=== PATIENT | female | born 1950 | race Caucasian/White ===

== ENCOUNTER 2017-01-31 10:10 | Day surgery (SDC) | payer MEDICARE, BC ==
[~2017-01-31 10:10] MED LIST: BESIFLOXACIN HCL 0.6% OPH SUSP 5 ML BOTTLE OD PRN; CYCLOPENTOLATE 0.2%/PHENYLEPHRINE 1% OPH SOLN 2 ML OD PRN; KETOROLAC TROMETHAMINE 0.45% 4 DROP/0.4 ML DROPERETTE OD PRN; MIDAZOLAM 2 MG/2 ML INJ ONE; TETRACAINE HCL 0.5% OPH SOLN 0.6 ML DROPERETTE OD PRN; TROPICAMIDE 1% OPH SOLN 3 ML OD PRN
[2017-01-31] MEDS: TETRACAINE HCL 0.5% OPH SOLN 0.6 ML DROPERETTE OD PRN ×4 (11:02→12:15)
[2017-01-31] MEDS: TROPICAMIDE 1% OPH SOLN 3 ML OD PRN ×3 (11:02→11:25)
[2017-01-31] MEDS: BESIFLOXACIN HCL 0.6% OPH SUSP 5 ML BOTTLE OD PRN ×3 (11:02→12:15)
[2017-01-31] MEDS: CYCLOPENTOLATE 0.2%/PHENYLEPHRINE 1% OPH SOLN 2 ML OD PRN ×3 (11:02→11:25)
[2017-01-31] MEDS ORDERED: LIDOCAINE 0.5% INJ-PF (5 MG/ML) 50 ML SDV ONE (11:05)
[2017-01-31] MEDS ORDERED: EPINEPHRINE INJ/PF 1 MG/1 ML AMPULE ONE (11:11)
[2017-01-31] MEDS ORDERED: CHONDR SU A NA/HYALUR INTRAOC KIT (SURGICARE) ONE (11:11)
[2017-01-31] MEDS ORDERED: LIDOCAINE 1% INJ-PF (10 MG/ML) 30 ML SDV ONE (11:11)
[2017-01-31] MEDS: TOBRAMYCIN SULFATE/DEXAMETH OPH OINTMENT 3.5 GM ONE ×2 (11:51→12:15)
== END 2017-01-31 12:59 | disposition home or self-care (01) ==
LOC: SC 10:10
PROVIDERS: ATTEND Ophthalmology
PROC: 08RJ3JZ Replacement of Right Lens with Synthetic Substitute, Percutaneous Approach (ICD-10-PCS; principal; 2017-01-31 11:15)
DX: H25.11 Age-related nuclear cataract, right eye (principal); E11.9 Type 2 diabetes mellitus without complications; D64.9 Anemia, unspecified; I10 Essential (primary) hypertension; E03.9 Hypothyroidism, unspecified; E78.00 Pure hypercholesterolemia, unspecified; M19.90 Unspecified osteoarthritis, unspecified site; Z79.899 Other long term (current) drug therapy; Z79.84 Long term (current) use of oral hypoglycemic drugs; Z88.0 Allergy status to penicillin; Z88.5 Allergy status to narcotic agent; Z88.8 Allergy status to other drugs, medicaments and biological substances; Z85.850 Personal history of malignant neoplasm of thyroid; Z87.892 Personal history of anaphylaxis
CPT/HCPCS: 66984; 82962; V2632; J2250; J3490 ×4; A9270; J0171; 142

== ENCOUNTER 2017-02-14 08:32 | Day surgery (SDC) | payer MEDICARE, BC ==
[~2017-02-14 08:32] MED LIST changes: -BESIFLOXACIN HCL 0.6% OPH SUSP 5 ML BOTTLE OD PRN; +CHONDR SU A NA/HYALUR INTRAOC KIT (SURGICARE) ONE; -CYCLOPENTOLATE 0.2%/PHENYLEPHRINE 1% OPH SOLN 2 ML OD PRN; +EPINEPHRINE INJ/PF 1 MG/1 ML AMPULE ONE; -KETOROLAC TROMETHAMINE 0.45% 4 DROP/0.4 ML DROPERETTE OD PRN; +KETOROLAC TROMETHAMINE 0.45% 4 DROP/0.4 ML DROPERETTE OS PRN; +LIDOCAINE 1% INJ-PF (10 MG/ML) 30 ML SDV ONE; -MIDAZOLAM 2 MG/2 ML INJ ONE; -TETRACAINE HCL 0.5% OPH SOLN 0.6 ML DROPERETTE OD PRN; -TROPICAMIDE 1% OPH SOLN 3 ML OD PRN
[2017-02-14] MEDS ORDERED: MIDAZOLAM 2 MG/2 ML INJ ONE ×2 (08:51→09:23)
[2017-02-14] MEDS: TETRACAINE HCL 0.5% OPH SOLN 0.6 ML DROPERETTE OS PRN ×3 (08:55→09:16)
[2017-02-14] MEDS: TROPICAMIDE 1% OPH SOLN 3 ML OS PRN ×3 (08:55→09:13)
[2017-02-14] MEDS: CYCLOPENTOLATE 0.2%/PHENYLEPHRINE 1% OPH SOLN 2 ML OS PRN ×3 (08:56→09:13)
[2017-02-14] MEDS: BESIFLOXACIN HCL 0.6% OPH SUSP 5 ML BOTTLE OS PRN ×4 (08:57→09:53)
[2017-02-14] MEDS ORDERED: LIDOCAINE 0.5% INJ-PF (5 MG/ML) 50 ML SDV ONE (08:57)
[2017-02-14] MEDS ORDERED: LIDOCAINE 0.5% INJ-PF (5 MG/ML) 50 ML SDV SUBCUT PRN (09:30)
[2017-02-14] MEDS: TOBRAMYCIN SULFATE/DEXAMETH OPH OINTMENT 3.5 GM ONE ×2 (09:53)
[2017-02-14] MEDS ORDERED: LIDOCAINE 1%/EPINEPHRINE INJ 20 ML VIAL ONE (12:17)
[2017-02-14] MEDS ORDERED: POLYMYXIN B SULFATE INJ 500000 UNIT VIAL ONE (12:17)
[2017-02-14] MEDS ORDERED: BACITRACIN INJ 50,000 UNIT VIAL ONE (12:17)
[2017-02-14] MEDS ORDERED: NORMAL SALINE INJ/PF 0.9% 10 ML SDV ONE (12:18)
== END 2017-02-14 10:26 | disposition home or self-care (01) ==
LOC: SC 08:32
PROVIDERS: ATTEND Ophthalmology
PROC: 08RK3JZ Replacement of Left Lens with Synthetic Substitute, Percutaneous Approach (ICD-10-PCS; principal; 2017-02-14 09:45)
DX: H25.12 Age-related nuclear cataract, left eye (principal); M19.90 Unspecified osteoarthritis, unspecified site; E11.9 Type 2 diabetes mellitus without complications; I10 Essential (primary) hypertension; E03.9 Hypothyroidism, unspecified; G89.29 Other chronic pain; H91.90 Unspecified hearing loss, unspecified ear; Z96.653 Presence of artificial knee joint, bilateral; D64.9 Anemia, unspecified; Z98.41 Cataract extraction status, right eye; Z79.899 Other long term (current) drug therapy; Z88.0 Allergy status to penicillin; Z79.84 Long term (current) use of oral hypoglycemic drugs; Z88.2 Allergy status to sulfonamides
CPT/HCPCS: 66984; 82962; V2632; J2250; J3490 ×5; A9270; J0171; 142

== ENCOUNTER 2017-12-04 15:27 | Emergency (ER) | payer MEDICARE, BC ==
--- NOTE | 2017-12-04 16:25 | ER Document Report ---
ED Skin Rash/Insect Bite/Abscs - General Chief Complaint: Rash Stated Complaint: RASH, SKIN IRRITATION Time Seen by Provider: 12/04/17 16:11 Mode of Arrival: Ambulatory Information source: Patient TRAVEL OUTSIDE OF THE [place] IN LAST 30 DAYS: No - HPI Patient complains to provider of: Skin rash/lesion Onset: Yesterday Onset/Duration: Gradual Quality of pain: Burning Severity: Severe Skin Character: Erythema, Papules, Patchy Skin Temperature: Warm Quality of rash: Burning Identify cause: No Exacerbated by: Denies Relieved by: Denies Similar symptoms previously: Yes - W/ "SHINGLES" Recently seen / treated by doctor: No - Related Data Allergies/Adverse Reactions: Iodinated Contrast- Oral and IV Dye Allergy (Intermediate, Verified 12/04/17 15: 33) Pruritis morphine Allergy (Intermediate, Verified 12/04/17 15:33) Pruritis oxycodone Allergy (Intermediate, Verified 12/04/17 15:33) Pruritis Penicillins Allergy (Intermediate, Verified 12/04/17 15:33) Difficulty breathing fentanyl [From Duragesic] Allergy (Unknown, Verified 12/04/17 15:33) hydromorphone HCl [From Dilaudid] Allergy (Unknown, Verified 12/04/17 15:33) meloxicam [From Mobic] Allergy (Verified 12/04/17 15:33) Sulfa (Sulfonamide Antibiotics) Allergy (Verified 12/04/17 15:33) Past Medical History - General Information source: Patient - Social History Smoking Status: Unknown if Ever Smoked Cigarette use (# per day): No Frequency of alcohol use: None Drug Abuse: None Lives with: Family Family History: Reviewed & Not Pertinent Patient has suicidal ideation: No Patient has homicidal ideation: No - Past Medical History Cardiac Medical History: Reports: Hx Congestive Heart Failure, Hx Hypercholesterolemia, Hx Hypertension Denies: Hx Heart Attack Pulmonary Medical History: Reports: None Denies: Hx Asthma Neurological Medical History: Reports: Hx Migraine. Denies: Hx Cerebrovascular Accident, Hx Seizures Endocrine Medical History: Reports: Hx Diabetes Mellitus Type 2 Renal/ Medical History: Denies: Hx Peritoneal Dialysis GI Medical History: Denies: Hx Hepatitis, Hx Hiatal Hernia, Hx Ulcer Infectious Medical History: Denies: Hx Hepatitis Past Surgical History: Reports: Hx Hysterectomy, Hx Orthopedic Surgery - left knee replacement; left rotator cuff, Hx Thyroid Surgery. Denies: Hx Mastectomy , Hx Open Heart Surgery, Hx Pacemaker - Immunizations Hx Diphtheria, Pertussis, Tetanus Vaccination: Yes Hx Pneumococcal Vaccination: 03/19/99 Review of Systems - Review of Systems Constitutional: Malaise. denies: Chills, Fever EENT: No symptoms reported Cardiovascular: No symptoms reported Respiratory: No symptoms reported Gastrointestinal: No symptoms reported Genitourinary: No symptoms reported Female Genitourinary: Post menopausal Musculoskeletal: No symptoms reported Skin: See HPI Neurological/Psychological: No symptoms reported Physical Exam - Vital signs Vitals: Temp Pulse Resp BP Pulse Ox 98.4 F 75 18 185/85 H 98 12/04/17 18:11 12/04/17 18:11 12/04/17 18:11 12/04/17 18:11 12/04/17 18:11 Interpretation: Hypertensive. No: Tachycardic, Tachypneic, Febrile - General General appearance: Appears well, Alert In distress: Mild - DUE TO PAIN - HEENT Head: Normocephalic Eyes: Normal Conjunctiva: Normal Ears: Normal Nasal: Normal Mouth/Lips: Normal Mucous membranes: Normal - Respiratory Respiratory status: No respiratory distress - Cardiovascular Rhythm: Regular - Abdominal Inspection: Other - RASH (SEE SKIN" BELOW) Distension: No distension - Back Back: Other - RASH - Extremities General upper extremity: Normal inspection General lower extremity: Normal inspection - Neurological Neuro grossly intact: Yes Cognition: Normal Orientation: AAOx4 - Psychological Associated symptoms: Normal affect, Normal mood - Skin Skin Temperature: Warm Skin Moisture: Dry Skin Color: Normal Skin Turgor: Elastic Skin irregularity: Rash Location of irregularity: Abdomen, Back, Other - CONFINED TO DERMATOME T-11 RIGHT Character of irregularity: Maculopapular, Patchy, Erythematous. negative: Vesicular Irregularity with: Tenderness, Inflammation. negative: Weeping Course - Vital Signs Vital signs: Temp Pulse Resp BP Pulse Ox 98.4 F 75 18 185/85 H 98 12/04/17 18:11 12/04/17 18:11 12/04/17 18:11 12/04/17 18:11 12/04/17 18:11 Discharge - Discharge Clinical Impression: Shingles outbreak Qualifiers: Herpes zoster complications: without complications Qualified Code(s): B02.9 - Zoster without complications Condition: Stable Disposition: HOME, SELF-CARE Instructions: Acyclovir ([facility]), Corticosteroid Medication ([facility]), Oral Narcotic Medication ([facility]), Shingles ([facility]) Additional Instructions: TAKE ACYCLOVIR DIRECTED, BEGIN TODAY. TAKE PREDNISONE DIRECTED, BEGIN TOMORROW (SUNDAY). YOU MAY TAKE DILAUDID FOR PAIN IF NEEDED (INSTEAD OF YOUR USUAL HYDROCODONE). FOLLOW UP WITH DR. NEWMAN BEFORE THE END OF THE WEEK. RETURN TO E.R. IF YOU GET WORSE OR IF COMPLICATIONS ARISE, ANY TIME. Prescriptions: Acyclovir 800 mg PO 5XD #35 tablet Prednisone 20 mg PO TID #10 tablet
[2017-12-04] MEDS ORDERED: HYDROMORPHONE HCL 2 MG TABLET PO ONE (16:42)
[2017-12-04] MEDS ORDERED: DEXAMETHASONE SOD PHOS INJ 10 MG/1 ML VIAL IM ONE (16:42)
[2017-12-04 18:13] VITALS: BP 185/85
== END 2017-12-04 18:08 | disposition home or self-care (01) ==
LOC: ER 15:27
DX: B02.9 Zoster without complications (principal); R53.81 Other malaise; I10 Essential (primary) hypertension; E11.9 Type 2 diabetes mellitus without complications; Z91.041 Radiographic dye allergy status; Z88.5 Allergy status to narcotic agent; Z88.0 Allergy status to penicillin; Z88.8 Allergy status to other drugs, medicaments and biological substances; Z88.2 Allergy status to sulfonamides
CPT/HCPCS: 99282; 96372; A9270; J1100

== ENCOUNTER 2017-12-07 09:05 | Emergency (ER) | payer MEDICARE, BC ==
[2017-12-07 09:15] VITALS: BP 174/98
--- NOTE | 2017-12-07 09:28 | ER Document Report ---
HPI - HPI Patient complains to provider of: Re-check shingles Pain Level: 3 Context: 67-year-old female is on Valtrex and prednisone with pain medication for the shingles. She was told to come back today for recheck. She was seen on the and the pain persists but there is no fever or chills. Associated Symptoms: None Exacerbated by: Movement - Touching the area Relieved by: Denies Similar symptoms previously: Yes Recently seen / treated by doctor: Yes - CONSTITUTIONAL Constitutional: DENIES: Fever, Chills - REPRODUCTIVE Reproductive: DENIES: : Past Medical History - General Information source: Patient - Social History Smoking Status: Never Smoker Chew tobacco use (# tins/day): No Frequency of alcohol use: None Drug Abuse: None Lives with: Family Family History: Reviewed & Not Pertinent Patient has suicidal ideation: No Patient has homicidal ideation: No - Past Medical History Cardiac Medical History: Reports: Hx Congestive Heart Failure, Hx Hypercholesterolemia, Hx Hypertension Neurological Medical History: Reports: Hx Migraine Endocrine Medical History: Reports: Hx Diabetes Mellitus Type 2 Past Surgical History: Reports: Hx Hysterectomy, Hx Orthopedic Surgery - left knee replacement; bilateral rotator cuff, Hx Thyroid Surgery - Immunizations Hx Diphtheria, Pertussis, Tetanus Vaccination: Yes Hx Pneumococcal Vaccination: 03/19/99 Vertical Provider Document - CONSTITUTIONAL Agree With Documented VS: Yes Exam Limitations: No Limitations - INFECTION CONTROL TRAVEL OUTSIDE OF THE [place] IN LAST 30 DAYS: No - RESPIRATORY Respiratory: Breath Sounds Normal, No Respiratory Distress - CARDIOVASCULAR Cardiovascular: Regular Rate, Regular Rhythm - GI/ABDOMEN Gastrointestinal: Abdomen Soft, Abdomen Non-Tender - BACK Notes: Grouped vesicles right waistline and then again in the right lower flank area. Both areas are starting to dry there is no signs of infection or lymphangitis. - MUSCULOSKELETAL/EXTREMETIES Musculoskeletal/Extremeties: MAEW - NEURO Level of Consciousness: Awake Motor/Sensory: No Motor Deficit, No Sensory Deficit - DERM Integumentary: Rash - See above Course - Vital Signs Vital signs: Temp Pulse Resp BP Pulse Ox 97.7 F 98 16 174/98 H 98 12/07/17 09:13 12/07/17 09:13 12/07/17 09:13 12/07/17 09:13 12/07/17 09:13 Discharge - Discharge Clinical Impression: Shingles recheck Condition: Good Disposition: HOME, SELF-CARE Instructions: Shingles ([facility]), Topical Lidocaine ([facility]) Additional Instructions: Continue the Valtrex until it is gone After the rash goes away can asked Dr. Newman about a lidocaine patch to reduce pain Tylenol up to 4000 mg a day for pain You will not need any more steroid medication Return to the emergency room any concerns or problems Referrals: RUFINO NEWMAN MD [Primary Care Provider] - Follow up in 3-5 days
== END 2017-12-07 09:43 | disposition home or self-care (01) ==
LOC: ER 09:05
DX: B02.9 Zoster without complications (principal)
CPT/HCPCS: 99283

== ENCOUNTER 2018-03-13 09:29 | Emergency (ER) | payer MEDICARE, BC ==
[2018-03-13 09:51] VITALS: BP 165/70
--- NOTE | 2018-03-13 09:55 | ER Document Report ---
ED Fall - General Mode of Arrival: Ambulatory Information source: Patient TRAVEL OUTSIDE OF THE [place] IN LAST 30 DAYS: No - General Chief Complaint: Head Injury Stated Complaint: HEAD INJURY Time Seen by Provider: 03/13/18 09:45 Notes: 68-year-old female who presents to the emergency department today with complaints of a fall yesterday. Patient states that she was walking up the steps and had a gallon of milk in one hand, a gallon of juice in the other hand, and her purse and she fell backwards onto the concrete. Patient states that she has chronic neck pain but has not had any increase in her pain. Patient is on one baby aspirin a day. Patient has a headache. Patient denies any confusion, vomiting, numbness, or tingling. (RADHA SAN) Denies loss of consciousness. States that she only came in because her daughter wants to get her head CAT scan. (SEKOU HERNDON) - Related data Allergies/Adverse Reactions: Iodinated Contrast- Oral and IV Dye Allergy (Intermediate, Verified 03/13/18 09:31) Pruritis morphine Allergy (Intermediate, Verified 03/13/18 09:31) Pruritis oxycodone Allergy (Intermediate, Verified 03/13/18 09:31) Pruritis Penicillins Allergy (Intermediate, Verified 03/13/18 09:31) Difficulty breathing fentanyl [From Duragesic] Allergy (Unknown, Verified 03/13/18 09:31) hydromorphone HCl [From Dilaudid] Allergy (Unknown, Verified 03/13/18 09:31) meloxicam [From Mobic] Allergy (Verified 03/13/18 09:31) Sulfa (Sulfonamide Antibiotics) Allergy (Verified 03/13/18 09:31) Past Medical History - General Information source: Patient - Social History Smoking Status: Never Smoker Cigarette use (# per day): No Frequency of alcohol use: None Drug Abuse: None Lives with: Family Family History: Reviewed & Not Pertinent - Past Medical History Cardiac Medical History: Reports: Hx Congestive Heart Failure, Hx Hypercholesterolemia, Hx Hypertension Neurological Medical History: Reports: Hx Migraine Endocrine Medical History: Reports: Hx Diabetes Mellitus Type 2 Past Surgical History: Reports: Hx Hysterectomy, Hx Orthopedic Surgery - left knee replacement; bilateral rotator cuff, Hx Thyroid Surgery - Immunizations Hx Diphtheria, Pertussis, Tetanus Vaccination: Yes Hx Pneumococcal Vaccination: 03/19/99 Review of Systems - Review of Systems Constitutional: No symptoms reported EENT: No symptoms reported Cardiovascular: No symptoms reported Respiratory: No symptoms reported Gastrointestinal: denies: Vomiting Genitourinary: No symptoms reported Female Genitourinary: No symptoms reported Musculoskeletal: See HPI, Neck pain - chronic, no increased pain Skin: No symptoms reported Hematologic/Lymphatic: No symptoms reported Neurological/Psychological: See HPI, Headaches. denies: Confusion, Numbness, Tingling -: Yes All other systems reviewed and negative Physical Exam - Vital signs Vitals: Temp Pulse Resp BP Pulse Ox 98.2 F 77 18 165/70 H 100 03/13/18 09:50 03/13/18 09:50 03/13/18 09:50 03/13/18 09:50 03/13/18 09:50 - Notes Notes: PHYSICAL EXAM GENERAL: Alert, interacts well. No acute distress. HEAD: Normocephalic, atraumatic. No hematomas appreciated. EYES: Pupils equal, round, and reactive to light. Extraocular movements intact. ENT: Oral mucosa moist, tongue midline. Hearing aid in the right ear. NECK: Full range of motion. Supple. No midline bony tenderness with palpation. Trachea midline. LUNGS: No respiratory distress. EXTREMITIES: Moves all 4 extremities spontaneously. NEUROLOGICAL: Alert and oriented x3. Normal speech. Cranial nerves II through XII grossly intact. Spool Hauler strength 5 out of 5 bilaterally. Great toe raising strength 5 out of 5 bilaterally. PSYCH: Normal affect, normal mood. SKIN: Warm, dry, normal turgor. Abrasions over the right ulnar forearm from previous fall. (RADHA SAN) Course - Re-evaluation Re-evalutation: 03/13/18 10:38 CT scan of the head was performed as this patient is taking blood thinners and is 68 years old. She is at higher risk for intracranial hemorrhage despite a normal neurologic exam. CT scan of the head is negative. Patient is neurologically intact. Patient will be discharged to home. (SEKOU HERNDON) - Vital Signs Vital signs: Temp Pulse Resp BP Pulse Ox 98.2 F 77 18 165/70 H 100 03/13/18 09:50 03/13/18 09:50 03/13/18 09:50 03/13/18 09:50 03/13/18 09:50 Discharge - Discharge Clinical Impression: Closed head injury Qualifiers: Encounter type: initial encounter Qualified Code(s): S09.90XA - Unspecified injury of head, initial encounter Fall on steps Qualifiers: Encounter type: initial encounter Qualified Code(s): W10.8XXA - Fall (on) (from) other stairs and steps, initial encounter Condition: Stable Disposition: HOME, SELF-CARE Additional Instructions: Head Injury Precautions At this point, there is no evidence that your head injury is serious. Observation is necessary, however. Take only clear liquids for the first few hours, unless told otherwise by the doctor. If no pain medication was prescribed, you may take acetaminophen according to the directions on the bottle. Do not take any medication that may alter your level of alertness (unless you've discussed it with the doctor first). Limit activity for the first 24 hours. Bed rest is best. During the first 24 hours, check to see approximately every two to three hours that the patient is easily arousable, responds normally, and can perform common tasks such as walking without difficulty. Contact your doctor or go to the hospital if any of the following things occur: Persistent vomiting, difficulty in arousing the patient, worsening or continued headache, or failure to improve as expected. Head injuries can cause symptoms that persist for a few days or even a few weeks. The CAT scan of your head did not show any signs of bleeding in your brain. Referrals: RUFINO NEWMAN MD [Primary Care Provider] - Follow up as needed Scribe Attestation: 03/13/18 12:50 I personally performed the services described in the documentation, reviewed and edited the documentation which was dictated to the scribe in my presence, and it accurately records my words and actions. (SEKOU HERNDON) Scribe Documentation - Scribe Written by Brennen:: Brennen Kaur, 03/13/2018 [id number] acting as scribe for :: Claude
--- NOTE | 2018-03-13 10:37 | RADIOLOGY REPORT (SQ) ---
EXAM DESCRIPTION: CT HEAD WITHOUT COMPLETED DATE/TIME: 03/13/2018 10:24 am REASON FOR STUDY: fell,, hit head, on ASA COMPARISON: None. TECHNIQUE: Axial images acquired through the brain without intravenous contrast. Images reviewed wi th bone, brain and subdural windows. Additional sagittal and coronal reconstructions were generated. Images stored on PACS. All CT scanners at this facility use dose modulation, iterative reconstruction, and/or weight based d osing when appropriate to reduce radiation dose to as low as reasonably achievable (ALARA). [facility]: Dose Right [facility]: CareDose [facility]: Dose Right [facility]: Teradose 4D [facility]: Fo[employer]rot RADIATION DOSE: CT Rad equipment meets quality standard of care and radiation dose reduction techniq ues were employed. CTDIvol: 53.2 mGy. DLP: 991 mGy-cm. mGy. LIMITATIONS: None. FINDINGS: VENTRICLES: Normal size and contour. CEREBRUM: No masses. No hemorrhage. No midline shift. No evidence for acute infarction. Normal gra y/white matter differentiation. Minimal spotty age-appropriate bifrontal and biparietal small vessel white matter disease CEREBELLUM: No masses. No hemorrhage. No alteration of density. No evidence for acute infarction. EXTRAAXIAL SPACES: No fluid collections. No masses. ORBITS AND GLOBE: No intra- or extraconal masses. Normal contour of globe without masses. CALVARIUM: No fracture. PARANASAL SINUSES: No fluid or mucosal thickening. SOFT TISSUES: No mass or hematoma. OTHER: No other significant finding. IMPRESSION: No acute findings. Age-appropriate white matter disease. EVIDENCE OF ACUTE STROKE: NO. COMMENT: Quality ID # [id number]: Final reports with documentation of one or more dose reduction techniques (e.g., Automated exposure control, adjustment of the mA and/or kV according to patient size, use of iterative reconstruction technique) TECHNICAL DOCUMENTATION: JOB ID: [id number] [employer]- All Rights Reserved Reading location - IP/workstation name: [email or web address]
== END 2018-03-13 11:01 | disposition home or self-care (01) ==
LOC: ER 09:29
DX: S09.90XA Unspecified injury of head, initial encounter (principal); M54.2 Cervicalgia; R51 Headache; W10.9XXA Fall (on) (from) unspecified stairs and steps, initial encounter; I10 Essential (primary) hypertension; E11.9 Type 2 diabetes mellitus without complications
CPT/HCPCS: 70450; 99284

== ENCOUNTER 2018-09-08 12:23 | Inpatient (IN) | payer MEDICARE, BC ==
[2018-09-08 13:54] LABS: ABSOLUTE LYMPHOCYTES (AUTO) 0.8 10^3/uL (0.5-4.7); ABSOLUTE MONOCYTES (AUTO) 0.5 10^3/uL (0.1-1.4); ABSOLUTE NEUT (AUTO) 5.8 10^3/uL (1.7-8.2); BASOPHILS % (AUTO) 0.2 % (0-2); EOSINOPHILS % (AUTO) 0.5 % (0-6); HEMATOCRIT 33.2 % (36.0-47.0); HEMOGLOBIN 11.2 g/dL (12.0-15.5); LYMPHOCYTES % (AUTO) 10.7 % (13-45); MEAN CORPUSCULAR HEMOGLOBIN 32.2 pg (27.0-33.4); MEAN CORPUSCULAR HGB CONC 33.7 g/dL (32.0-36.0); MEAN CORPUSCULAR VOLUME 96 fl (80-97); MONOCYTES % (AUTO) 6.4 % (3-13); PLATELET COUNT 151 10^3/uL (150-450); RED BLOOD COUNT 3.48 10^6/uL (3.72-5.28); RED CELL DISTRIBUTION WIDTH 13.3 % (11.5-14.0); SEGMENTED NEUTROPHILS % (AUTO) 82.2 % (42-78); TOTAL CELLS COUNTED % (AUTO) 100 %
[2018-09-08 13:55] LABS: INTERNATIONAL RATION (INR) 0.94; PROTHROMBIN TIME 13.1 SEC (11.4-15.4)
[2018-09-08 14:00] LABS: ALANINE AMINOTRANSFERASE 24 U/L (9-52); ALBUMIN 4.2 g/dL (3.5-5.0); ALKALINE PHOSPHATASE 74 U/L (38-126); ANION GAP 16 (5-19); ASPARTATE AMINO TRANSFERASE 29 U/L (14-36); BILIRUBIN,DIRECT 0.2 mg/dL (0.0-0.4); BILIRUBIN,TOTAL 0.2 mg/dL (0.2-1.3); BLOOD UREA NITROGEN 76 mg/dL (7-20); CALCIUM 8.6 mg/dL (8.4-10.2); CARBON DIOXIDE 18 mmol/L (22-30); CHLORIDE 103 mmol/L (98-107); POTASSIUM 5.4 mmol/L (3.6-5.0); SODIUM 137.3 mmol/L (137-145); TOTAL PROTEIN 7.1 g/dL (6.3-8.2)
[2018-09-08 14:02] LABS: GLUCOSE 61 mg/dL (75-110)
[2018-09-08] MEDS ORDERED: DEXTROSE 50%-WATER 25 GM/50 ML DISP.SYRIN IV ONE ×6 (14:09→23:16)
[2018-09-08 14:22] LABS: VENOUS BLOOD BASE EXCESS -11.3 mmol/L; VENOUS BLOOD HCO3 16.6 mmol/L (20-32); VENOUS BLOOD PCO2 44.7 mmHg (35-63)
[2018-09-08 14:23] LABS: VENOUS BLOOD PH 7.19 (7.30-7.42)
[2018-09-08] MEDS ORDERED: LEVOFLOXACIN 750 MG/D5W RTU 750 MG/150 ML RTUPB IV ONE (14:29)
[2018-09-08] MEDS ORDERED: NORMAL SALINE 1000 ML 1,000 ML IV ONE (14:29)
--- NOTE | 2018-09-08 14:50 | RADIOLOGY REPORT (SQ) ---
EXAM DESCRIPTION: CT HEAD WITHOUT COMPLETED DATE/TIME: 09/08/2018 2:38 pm REASON FOR STUDY: AMS, LOC COMPARISON: 03/13/2018. TECHNIQUE: Axial images acquired through the brain without intravenous contrast. Images reviewed wi th bone, brain and subdural windows. Images stored on PACS. All CT scanners at this facility use dose modulation, iterative reconstruction, and/or weight based d osing when appropriate to reduce radiation dose to as low as reasonably achievable (ALARA). [facility]: Dose Right [facility]: CareDose [facility]: Dose Right [facility]: Teradose 4D [facility]: Smart [employer] RADIATION DOSE: CT Rad equipment meets quality standard of care and radiation dose reduction techniq ues were employed. CTDIvol: 53.2 mGy. DLP: 964 mGy-cm. mGy. LIMITATIONS: None. FINDINGS: VENTRICLES: Normal size and contour. CEREBRUM: No masses. No hemorrhage. No midline shift. No evidence for acute infarction. Normal gra y/white matter differentiation. Findings consistent with old lacunar infarcts of the right and left basal ganglion region. Minimal chronic white matter changes. CEREBELLUM: No masses. No hemorrhage. No alteration of density. No evidence for acute infarction. EXTRAAXIAL SPACES: No fluid collections. No masses. ORBITS AND GLOBE: No intra- or extraconal masses. Normal contour of globe without masses. CALVARIUM: No fracture. PARANASAL SINUSES: No fluid or mucosal thickening. SOFT TISSUES: No mass or hematoma. OTHER: No other significant finding. 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 MINIMAL CHRONIC WHITE MATTER CHANGES. O THERWISE, NORMAL NONCONTRAST CT HEAD. EVIDENCE OF ACUTE STROKE: NO. COMMENT: Quality ID # [id number]: Final reports with documentation of one or more dose reduction techniques (e.g., Automated exposure control, adjustment of the mA and/or kV according to patient size, use of iterative reconstruction technique) TECHNICAL DOCUMENTATION: JOB ID: [id number] 2010 [employer]- All Rights Reserved Reading location - IP/workstation name: [email or web address]
--- NOTE | 2018-09-08 15:00 | RADIOLOGY REPORT (SQ) ---
EXAM DESCRIPTION: CHEST 2 VIEWS COMPLETED DATE/TIME: 09/08/2018 2:48 pm REASON FOR STUDY: altered mental status, hypoglycemia COMPARISON: 12/26/2006 TECHNIQUE: Frontal and lateral radiographic views of the chest acquired. NUMBER OF VIEWS: Two view. LIMITATIONS: None. FINDINGS: LUNGS AND PLEURA: No pneumothorax. No consolidation or pleural effusion. Similar right mi dlung scarring. MEDIASTINUM AND HILAR STRUCTURES: Stable. HEART AND VASCULAR STRUCTURES: Stable. BONES: No acute findings. HARDWARE: None in the chest. OTHER: No other significant finding. IMPRESSION: NO ACUTE FINDINGS. TECHNICAL DOCUMENTATION: JOB ID: [id number] 2010 [employer] All Rights Reserved Reading location - IP/workstation name: [email or web address] ([email or web address])
[2018-09-08 15:35] LABS: AMORPHOUS SEDIMENT,URINE TRACE /HPF; APPEARANCE,URINE CLOUDY; BILIRUBIN,URINE NEGATIVE (NEGATIVE); COLOR,URINE YELLOW; GLUCOSE, URINE NEGATIVE (NEGATIVE); KETONES,URINE NEGATIVE (NEGATIVE); LEUKOCYTE ESTERASE,URINE LARGE (NEGATIVE); NITRITE,URINE POSITIVE (NEGATIVE); PROTEIN,URINE 30 mg/dL (NEGATIVE); URINE SPECIFIC GRAVITY 1.008; UROBILINOGEN,URINE NEGATIVE mg/dL (<2.0)
--- NOTE | 2018-09-08 16:29 | ER Document Report ---
Entered by NOAM KULKARNI SCRIBE 09/08/18 1418 Acting as scribe for:SEKOU HERNDON DO ED General - General Chief Complaint: Low Blood Sugar Stated Complaint: BLOOD SUGAR PROBLEMS Time Seen by Provider: 09/08/18 13:08 Mode of Arrival: Medic Information source: Patient Notes: Patient is a 68-year-old female with type 2 diabetes presents to the emergency department via EMS accompanied by family complaining of AMS. Daughter at bedside states that she last heard from the patient around 1822 yesterday evening after giving the patient 2 slices of pizza. Daughter states the she did not hear from the patient this morning so she went to her home to check on the patient and found her sitting in the same chair as the night before. She states the patient was not moving and had a blank stare on her face. Family states that the patient typically only eats one meal a day and the patient reported yesterday taking too much insulin. Patient denies any headaches, sore throat, rhinorrhea, earache, blurry vision, chest pain, trouble breathing, nausea or vomiting. EMS found the patient to be hypoglycemic with blood sugar of 45 and hypothermic. Patient's mental status did normalize according to family after she was given an amp of D50 by EMS. Daughters express concern of the patient developing dementia due to patient's recent forgetfulness. They state the patient is on a lot of muscle relaxers and pain medication and is concerned of a possible or impending overdose. TRAVEL OUTSIDE OF THE [place] IN LAST 30 DAYS: No - Related Data Allergies/Adverse Reactions: Iodinated Contrast- Oral and IV Dye Allergy (Intermediate, Verified 03/13/18 09:31) Pruritis morphine Allergy (Intermediate, Verified 03/13/18 09:31) Pruritis oxycodone Allergy (Intermediate, Verified 03/13/18 09:31) Pruritis Penicillins Allergy (Intermediate, Verified 03/13/18 09:31) Difficulty breathing fentanyl [From Duragesic] Allergy (Unknown, Verified 03/13/18 09:31) hydromorphone HCl [From Dilaudid] Allergy (Unknown, Verified 03/13/18 09:31) meloxicam [From Mobic] Allergy (Verified 03/13/18 09:31) Sulfa (Sulfonamide Antibiotics) Allergy (Verified 03/13/18 09:31) Past Medical History - General Information source: Patient, Relative, Emergency Med Personnel - Social History Smoking Status: Never Smoker Cigarette use (# per day): No Chew tobacco use (# tins/day): No Smoking Education Provided: No Frequency of alcohol use: None Drug Abuse: None Family History: Reviewed & Not Pertinent Patient has suicidal ideation: No Patient has homicidal ideation: No - Past Medical History Cardiac Medical History: Reports: Hx Congestive Heart Failure, Hx Hypercholester olemia, Hx Hypertension Neurological Medical History: Reports: Hx Migraine Endocrine Medical History: Reports: Hx Diabetes Mellitus Type 2 Past Surgical History: Reports: Hx Hysterectomy, Hx Orthopedic Surgery - left knee replacement; bilateral rotator cuff, Hx Thyroid Surgery - Immunizations Hx Diphtheria, Pertussis, Tetanus Vaccination: Yes Hx Pneumococcal Vaccination: 03/19/99 Review of Systems - Review of Systems Constitutional: See HPI EENT: No symptoms reported Cardiovascular: No symptoms reported Respiratory: No symptoms reported Gastrointestinal: No symptoms reported Genitourinary: No symptoms reported Female Genitourinary: No symptoms reported Musculoskeletal: No symptoms reported Skin: No symptoms reported Hematologic/Lymphatic: No symptoms reported Neurological/Psychological: See HPI -: Yes All other systems reviewed and negative Physical Exam - Vital signs Vitals: Resp 15 09/08/18 12:29 Interpretation: Other - Hypothermic - Notes Notes: GENERAL: Awake, oriented to person and place, not to time. Difficulty following some commands. HEAD: Normocephalic, atraumatic. EYES: Pupils equal, round, and reactive to light. Extraocular movements intact. ENT: Oral mucosa moist, tongue midline. NECK: Full range of motion. Supple. Trachea midline. LUNGS: Clear to auscultation bilaterally, no wheezes, rales, or rhonchi. No respiratory distress. HEART: Regular rate and rhythm. No murmurs, gallops, or rubs. ABDOMEN: Soft, non-tender. Non-distended. Bowel sounds present in all 4 quadrants. No guarding, rigidity, or rebound. EXTREMITIES: Moves all 4 extremities spontaneously. No edema, radial and dorsalis pedis pulses 2/4 bilaterally. No cyanosis. NEUROLOGICAL: Awake, oriented to person and place. Not oriented to time, will not attempt to answer questions involving time or will state her name instead. Difficulty following finger however able to demonstrate that her extraocular movements are intact by tracking me around the emergency department. Will track my hands rather than resist exam to test muscle strength. PSYCH: Normal affect, normal mood. SKIN: Warm, dry. Scattered ecchymosis to the bilateral upper extremities, in various stages of healing. Course - Re-evaluation Re-evalutation: 09/08/18 16:17 Patient's blood sugar dropped again while I was in the room and we gave her an amp of D50, mental status immediately improved and she became much more oriented, there is no focal neurologic deficit, no sign of stroke, patient is now sitting up at the bedside eating and drinking without difficulty, able to follow all commands, CBC shows anemia with hemoglobin 11.2, no leukocytosis, coags normal, venous blood gas shows anemia with a pH of 7.19, chemistries show potassium of 5.4, CO2 low at 18, BUN and creatinine elevated at 76 and 7.69, lac tic acid is actually normal at 0.6, LFTs normal, urinalysis shows positive nitrites and large leukocyte esterase, this is been sent for culture as has the urine, CT scan of the head shows chronic diffuse white matter changes but nothing acute, chest x-ray shows no acute process as well. Patient has been initially treated with Levaquin for possible sepsis causing the persistent hypoglycemia and the temperature instability, temp Rubi has been placed and she is on a JAMAL hugger. 09/08/18 16:[address] Han who agrees to admit the patient to his service. I have added thyroid function studies on this elderly patient with hypothermia. 09/08/18 17:26 - Vital Signs Vital signs: Temp Pulse Resp BP Pulse Ox 93.2 F L 20 153/78 H 99 09/08/18 12:42 09/08/18 16:01 09/08/18 16:01 09/08/18 16:01 - Laboratory Result Diagrams: 09/08/18 12:39 09/08/18 12:39 Laboratory results interpreted by me: 09/08/18 09/08/18 09/08/18 12:39 12:39 12:39 RBC 3.48 L Hgb 11.2 L Hct 33.2 L Seg Neutrophils % 82.2 H Lymphocytes % 10.7 L VBG pH VBG HCO3 Potassium 5.4 H Carbon Dioxide 18 L BUN 76 H Creatinine 7.69 H Est GFR ( Amer) 6 L Est GFR (Non-Af Amer) 5 L Glucose 61 L POC Glucose Lactic Acid Free T3 pg/mL 2.11 L Urine Protein Urine Nitrite Ur Leukocyte Esterase Urine Ascorbic Acid 09/08/18 09/08/18 09/08/18 13:52 14:02 14:02 RBC Hgb Hct Seg Neutrophils % Lymphocytes % VBG pH 7.19 L* VBG HCO3 16.6 L Potassium Carbon Dioxide BUN Creatinine Est GFR ( Amer) Est GFR (Non-Af Amer) Glucose POC Glucose 56 L Lactic Acid 0.6 L Free T3 pg/mL Urine Protein Urine Nitrite Ur Leukocyte Esterase Urine Ascorbic Acid 09/08/18 15:00 RBC Hgb Hct Seg Neutrophils % Lymphocytes % VBG pH VBG HCO3 Potassium Carbon Dioxide BUN Creatinine Est GFR ( Amer) Est GFR (Non-Af Amer) Glucose POC Glucose Lactic Acid Free T3 pg/mL Urine Protein 30 H Urine Nitrite POSITIVE H Ur Leukocyte Esterase LARGE H Urine Ascorbic Acid 40 H - EKG Interpretation by Me Additional EKG results interpreted by me: 09/08/18 16:22 EKG shows sinus rhythm at a rate of 94 with first-degree AV block, CO interval is 212, no ST segment elevations or depressions, T wave inversions in lead III, T wave flattening in aVF, no peaked T waves per my interpretation. Critical Care Note - Critical Care Note Total time excluding time spent on procedures (mins): 55 Discharge - Discharge Clinical Impression: Hypoglycemia, Metabolic acidosis Hypothermia Qualifiers: Encounter type: initial encounter Qualified Code(s): T68.XXXA - Hypothermia, initial encounter Type 2 diabetes mellitus Qualifiers: Diabetes mellitus assisted insulin use: with intermediate accountant use Diabetes mellitus complication status: with hypoglycemia Diabetes mellitus complication detail: with coma Qualified Code(s): E11.641 - Type 2 diabetes mellitus with hypoglycemia with coma; Z79.4 - terminal carman (current) use of insulin Urinary tract infection Qualifiers: Urinary tract infection type: acute pyelonephritis Qualified Code(s): N10 - Acute pyelonephritis Acute renal failure Qualifiers: Acute renal failure type: unspecified Qualified Code(s): N17.9 - Acute kidney failure, unspecified Condition: Serious Disposition: ADMITTED INPATIENT Admitting Provider: Guille (Hospitalist) Unit Admitted: [facility] I personally performed the services described in the documentation, reviewed and edited the documentation which was dictated to the scribe in my presence, and it accurately records my words and actions.
[2018-09-08] MEDS ORDERED: ACETAMINOPHEN 325 MG TABLET PO PRN (16:39)
[2018-09-08 16:44] LABS: FREE T3 2.11 pg/mL (2.77-5.27); FREE T4 (FREE THYROXINE) 1.07 ng/dL (0.78-2.19)
[2018-09-08 16:58] LABS: THYROID STIMULATING HORMONE 0.67 uIU/mL (0.47-4.68)
--- NOTE | 2018-09-08 17:06 | PDOC H&P ---
History of Present Illness Admission Date/PCP: 09/08/18 16:42 RUFINO NEWMAN MD History of Present Illness: ELOY TOVAR is a 68 year old female patient with past medical h istory of migraine, hypertension, hyperlipidemia, history of congestive heart failure, type 2 diabetes mellitus, hypothyroidism brought with chief complaint of altered mental status. Patient is not able to give meaningful history. History is obtained from the ER attending note and from her daughter who is in the room during my encounter. Daughter at bedside states that she last heard from the patient [id number] yesterday evening after giving the patient to slices of MCH+. Daughter states that she did not her from the patient this morning so she went to her home to check on the patient and found her sitting in the same chair as the night before. She states the patient was not moving and had a blank stare on her face. Family states that patient type is currently only eats one meal a day. ER attending mentions in her note that patient took too much insulin but the daughter told me patient takes only glipizide. Daughter expressed concern of the patient developing dementia due to the patient is recent forgetfulness. EMS found the patient her blood glucose level was 45. In ER patient also found to be hypothermic with core temperature of 93. Her CT scan of the head is negative for acute stroke but she has old lacunar infarcts. Chest x-ray no acute cardiopulmonary findings. Her blood work is remarkable for acute kidney injury with BUN of 76 and creatinine of 7.69. Her urine analysis positive for nitrite, leukocyte esterase and pyuria. Past Medical History Cardiac Medical History: Reports: Congestive Heart Failure, Hyperlipidema, Hypertension Neurological Medical History: Reports: Migraine Endocrine Medical History: Reports: Diabetes Mellitus Type 2 Hematology: Reports: Anemia Denies: Sickle Cell Disease Past Surgical History Past Surgical History: Reports: Hysterectomy, Orthopedic Surgery - left knee replacement; bilateral rotator cuff Denies: Amputation Social History Smoking Status: Never Smoker - Advance Directive Resuscitation Status: Full Code Family History Family History: Reviewed & Not Pertinent, CAD, COPD, CVA Parental Family History Reviewed: Yes Children Family History Reviewed: Yes Sibling(s) Family History Reviewed.: Yes Medication/Allergy Home Medications: Atorvastatin Calcium 20 mg PO DAILY 05/11/12 Cyclobenzaprine HCl 10 mg PO Q8HP PRN 05/11/12 Levothyroxine Sodium [Synthroid 0.075 mg Tablet] 0.075 mg PO Q6AM 05/11/12 Topiramate [Topamax 100 Mg Tablet] 100 mg PO Q12 05/11/12 Glipizide [Glipizide ER] 2.5 mg PO DAILY 04/03/13 Lutein/Zeaxanthin [Lutein-Zeaxanthin 25-5 mg Sfgl] 1 each PO DAILY 04/03/13 Cholecalciferol (Vitamin D3) [Vitamin D3 1000 Unit Tablet] 2,000 unit PO DAILY 01/17/17 Cinnamon Bark [Cinnamon] 3,000 mg PO DAILY 01/17/17 Amlodipine Besylate/Benazepril [Amlodipine-Benazepril 5-10 mg] 1 cap PO Q2D 09/08/18 Hydrocodone Bit/Acetaminophen [Hydrocodon-Acetaminophn 10-325] 1 each PO Q4HP PRN 09/08/18 Iron Ps Complex/B12/Folic Acid [Poly-Iron 150 Forte Capsule] 1 each PO DAILY 09/08/18 Tizanidine HCl [Zanaflex 4 Mg Tablet] 4 mg PO Q12 09/08/18 Vit B1 Mn/B2/B3/B5/B6/B12/C/FA [B Complex with Vitamin C Tab] 1 each PO DAILY 09/08/18 Allergies/Adverse Reactions: Iodinated Contrast- Oral and IV Dye Allergy (Intermediate, Verified 03/13/18 09:31) Pruritis morphine Allergy (Intermediate, Verified 03/13/18 09:31) Pruritis oxycodone Allergy (Intermediate, Verified 03/13/18 09:31) Pruritis Penicillins Allergy (Intermediate, Verified 03/13/18 09:31) Difficulty breathing fentanyl [From Duragesic] Allergy (Unknown, Verified 03/13/18 09:31) hydromorphone HCl [From Dilaudid] Allergy (Unknown, Verified 03/13/18 09:31) meloxicam [From Mobic] Allergy (Verified 03/13/18 09:31) Sulfa (Sulfonamide Antibiotics) Allergy (Verified 03/13/18 09:31) Review of Systems ROS unobtainable: Due to mental status Physical Exam Vital Signs: Temp Pulse Resp BP Pulse Ox 93.2 F L 20 153/78 H 99 09/08/18 12:42 09/08/18 16:01 09/08/18 16:01 09/08/18 16:01 Intake & Output 09/07/18 09/08/18 09/09/18 06:59 06:59 06:59 Intake Total 1000 Balance 1000 Weight 63.503 kg General appearance: PRESENT: no acute distress, well-developed, well-nourished Head exam: PRESENT: atraumatic Eye exam: PRESENT: conjunctiva pink Mouth exam: PRESENT: dry mucosa Neck exam: ABSENT: carotid bruit, JVD, lymphadenopathy, thyromegaly Respiratory exam: PRESENT: clear to auscultation ahsan. ABSENT: rales, rhonchi, wheezes Cardiovascular exam: PRESENT: RRR. ABSENT: diastolic murmur, rubs, systolic murmur GI/Abdominal exam: PRESENT: normal bowel sounds, soft. ABSENT: distended, guarding, mass, organolmegaly, rebound, tenderness Neurological exam: PRESENT: alert, altered Results Laboratory Results: 09/08/18 12:39 09/08/18 12:39 09/08/18 09/08/18 09/08/18 12:39 12:39 14:02 WBC 7.0 RBC 3.48 L Hgb 11.2 L Hct 33.2 L MCV 96 MCH 32.2 MCHC 33.7 RDW 13.3 Plt Count 151 Seg Neutrophils % 82.2 H Lymphocytes % 10.7 L Monocytes % 6.4 Eosinophils % 0.5 Basophils % 0.2 Absolute Neutrophils 5.8 Absolute Lymphocytes 0.8 Absolute Monocytes 0.5 Absolute Eosinophils 0.0 Absolute Basophils 0.0 VBG pH VBG pCO2 VBG HCO3 VBG Base Excess Sodium 137.3 Potassium 5.4 H Chloride 103 Carbon Dioxide 18 L Anion Gap 16 BUN 76 H Creatinine 7.69 H Est GFR ( Amer) 6 L Est GFR (Non-Af Amer) 5 L Glucose 61 L Lactic Acid 0.6 L Calcium 8.6 Total Bilirubin 0.2 AST 29 ALT 24 Alkaline Phosphatase 74 Total Protein 7.1 Albumin 4.2 Urine Color Urine Appearance Urine pH Ur Specific [place] Urine Protein Urine Glucose (UA) Urine Ketones Urine Blood Urine Nitrite Ur Leukocyte Esterase Urine WBC (Auto) Urine RBC (Auto) 09/08/18 09/08/18 14:02 15:00 WBC RBC Hgb Hct MCV MCH MCHC RDW Plt Count Seg Neutrophils % Lymphocytes % Monocytes % Eosinophils % Basophils % Absolute Neutrophils Absolute Lymphocytes Absolute Monocytes Absolute Eosinophils Absolute Basophils VBG pH 7.19 L* VBG pCO2 44.7 VBG HCO3 16.6 L VBG Base Excess -11.3 Sodium Potassium Chloride Carbon Dioxide Anion Gap BUN Creatinine Est GFR ( Amer) Est GFR (Non-Af Amer) Glucose Lactic Acid Calcium Total Bilirubin AST ALT Alkaline Phosphatase Total Protein Albumin Urine Color YELLOW Urine Appearance CLOUDY Urine pH 6.0 Ur Specific [place] 1.008 Urine Protein 30 H Urine Glucose (UA) NEGATIVE Urine Ketones NEGATIVE Urine Blood NEGATIVE Urine Nitrite POSITIVE H Ur Leukocyte Esterase LARGE H Urine WBC (Auto) 156 Urine RBC (Auto) 3 Impressions: Chest X-Ray 09/08/18 13:40 IMPRESSION: NO ACUTE FINDINGS. Head CT 09/08/18 13:40 IMPRESSION: OLD BILATERAL LACUNAR BASAL GANGLION INFARCTS. MINIMAL CHRONIC WHITE MATTER CHANGES. OTHERWISE, NORMAL NONCONTRAST CT HEAD. EVIDENCE OF ACUTE STROKE: NO. Assessment and Plan - Diagnosis (1) Acute kidney injury Is this a current diagnosis for this admission?: Yes Plan: Patient does not have prior history of kidney failure. BUN is 76 and creatinine is 7.69 her GFR is 5. We will cautiously hydrate her since she has underlying congestive heart failure. We will monitor her kidney function. I will consult showroom consultant. (2) Acute encephalopathy Is this a current diagnosis for this admission?: Yes Plan: Due to #3 (3) Hypoglycemia Is this a current diagnosis for this admission?: Yes Plan: Most probably the culprit is the oral hypoglycemic agent glipizide compounded by her prior appetite. I will hold glipizide and put her on sliding scale. And will feed the patient. (4) Complicated UTI (urinary tract infection) Is this a current diagnosis for this admission?: Yes Plan: Urinalysis positive for nitrite, leukocyte esterase and pyuria. Patient has been started on Levaquin. (5) Hypertension Qualifiers: Hypertension type: essential hypertension Qualified Code(s): I10 - Essential (primary) hypertension Is this a current diagnosis for this admission?: Yes Plan: Continue her home medication. (6) Type 2 diabetes mellitus Is this a current diagnosis for this admission?: Yes Plan: Hold glipizide and start her on sliding scale. (7) Hyperlipidemia Qualifiers: Hyperlipidemia type: unspecified Qualified Code(s): E78.5 - Hyperlipidemia, unspecified Is this a current diagnosis for this admission?: Yes Plan: Continue her Lipitor. (8) Hypothyroidism (acquired) Is this a current diagnosis for this admission?: Yes Plan: Continue her Synthroid. - Inpatient Certification Medical Necessity: Need Close Monitoring Due to Risk of Patient Decompensation, Need For IV Fluids, Need for IV Antibiotics
[2018-09-08] MEDS ORDERED: CYCLOBENZAPRINE HCL 10 MG TABLET PO PRN (17:07)
[2018-09-08 17:54] LABS: ARTERIAL BLOOD BASE EXCESS -11.6 mmol/L; ARTERIAL BLOOD H2CO3 1.08 mmol/L (1.05-1.35); ARTERIAL BLOOD HCO3 14.9 mmol/L (20-24); ARTERIAL BLOOD O2 SATURATION 94.4 % (94-98); ARTERIAL BLOOD PH 7.24 (7.35-7.45); ARTERIAL BLOOD PO2 82.7 mmHg (80-100)
[2018-09-08 17:56] LABS: ARTERIAL BLOOD FIO2 ROOM AIR
[2018-09-08] MEDS ORDERED: DOCUSATE SODIUM 100 MG/10 ML UDC PO SCH (18:00)
[2018-09-08] MEDS: DEXTROSE 10%-WATER 1,000 ML IV PRN (18:04)
--- NOTE | 2018-09-08 18:39 | EKG REPORT ---
SEVERITY:- NORMAL ECG - SINUS RHYTHM : Confirmed by: Nia Moody MD 08-Sep-2018 18:39:03
--- NOTE | 2018-09-08 19:12 | RADIOLOGY REPORT (SQ) ---
EXAM DESCRIPTION: U/S RETROPERITON (RENAL/AORTA) COMPLETED DATE/TIME: 09/08/2018 6:54 pm REASON FOR STUDY: FABIAN COMPARISON: None. TECHNIQUE: Dynamic and static grayscale images acquired of the kidneys and bladder and recorded on P ACS. Additional selected color Doppler and spectral images recorded. LIMITATIONS: None. FINDINGS: RIGHT KIDNEY: The right kidney measures 12.4 x 5.5 x 8 cm demonstrating normal echogenicit y. No hydronephrosis. LEFT KIDNEY: The left kidney measures 10.4 x 5.1 x 4.6 cm demonstrating normal echogenicity. No hyd ronephrosis. BLADDER: Rubi catheter in place. . IMPRESSION: NORMAL RENAL AND BLADDER ULTRASOUND. TECHNICAL DOCUMENTATION: JOB ID: [id number] [employer]- All Rights Reserved Reading location - IP/workstation name: [email or web address]
[2018-09-08] MEDS: NORMAL SALINE 1000 ML 1,000 ML IV PRN (19:15)
[2018-09-08] MEDS: ONDANSETRON HCL INJ/PF 4 MG/2 ML SDV IV PRN (19:16)
[2018-09-08] MEDS: HEPARIN SOD (PORCINE) 5,000 UNIT/ML 1 ML SYRINGE SUBCUT SCH (21:09)
[2018-09-08] MEDS: TOPIRAMATE 100 MG TABLET PO SCH (21:32)
[2018-09-08] MEDS: TIZANIDINE HCL 4 MG TABLET PO SCH (21:32)
[2018-09-08] MEDS ORDERED: FAMOTIDINE 20 MG TABLET PO SCH (22:00)
[2018-09-09] MEDS ORDERED: DEXTROSE 50%-WATER 25 GM/50 ML DISP.SYRIN IV ONE ×4 (01:26→06:36)
[2018-09-09] MEDS: HEPARIN SOD (PORCINE) 5,000 UNIT/ML 1 ML SYRINGE SUBCUT SCH ×3 (05:48→22:19)
[2018-09-09] MEDS: LEVOTHYROXINE SODIUM 0.075 MG TABLET PO SCH (05:49)
[2018-09-09] MEDS: ONDANSETRON HCL INJ/PF 4 MG/2 ML SDV IV PRN (05:49)
[2018-09-09 05:59] LABS: ABSOLUTE EOSINOPHILS # (AUTO) 0.2 10^3/uL (0.0-0.6); ABSOLUTE MONOCYTES (AUTO) 0.6 10^3/uL (0.1-1.4); ABSOLUTE NEUT (AUTO) 4.7 10^3/uL (1.7-8.2); BASOPHILS % (AUTO) 0.2 % (0-2); EOSINOPHILS % (AUTO) 2.4 % (0-6); HEMATOCRIT 31.3 % (36.0-47.0); HEMOGLOBIN 10.6 g/dL (12.0-15.5); LYMPHOCYTES % (AUTO) 15.8 % (13-45); MEAN CORPUSCULAR HEMOGLOBIN 32.4 pg (27.0-33.4); MEAN CORPUSCULAR VOLUME 96 fl (80-97); PLATELET COUNT 156 10^3/uL (150-450); RED BLOOD COUNT 3.28 10^6/uL (3.72-5.28); RED CELL DISTRIBUTION WIDTH 13.3 % (11.5-14.0); SEGMENTED NEUTROPHILS % (AUTO) 72.6 % (42-78); TOTAL CELLS COUNTED % (AUTO) 100 %; WHITE BLOOD COUNT 6.4 10^3/uL (4.0-10.5)
[2018-09-09 06:16] LABS: ANION GAP 12 (5-19); BLOOD UREA NITROGEN 71 mg/dL (7-20); CALCIUM 7.6 mg/dL (8.4-10.2); CARBON DIOXIDE 17 mmol/L (22-30); CHLORIDE 102 mmol/L (98-107); POTASSIUM 5.4 mmol/L (3.6-5.0); SODIUM 131.4 mmol/L (137-145)
[2018-09-09 06:28] LABS: GLUCOSE 35 mg/dL (75-110)
[2018-09-09] MEDS ORDERED: ONDANSETRON HCL INJ/PF 4 MG/2 ML SDV IV PRN (08:30)
[2018-09-09] MEDS ORDERED: DEXTROSE 40% GEL 15 GM TUBE PO PRN (08:34)
[2018-09-09] MEDS ORDERED: DEXTROSE 50%-WATER 25 GM/50 ML DISP.SYRIN IV PRN (08:34)
[2018-09-09] MEDS ORDERED: GLUCAGON,HUMAN RECOMB 1 MG INJ ONE (08:40)
[2018-09-09] MEDS: DEXTROSE 50%-WATER 25 GM/50 ML DISP.SYRIN IV PRN ×3 (08:51→14:54)
[2018-09-09] MEDS: GLUCAGON,HUMAN RECOMB 1 MG INJ IM PRN ×2 (08:51→11:46)
[2018-09-09] MEDS: DEXTROSE 40% GEL 15 GM TUBE PO PRN ×2 (08:52→14:54)
--- NOTE | 2018-09-09 09:51 | RADIOLOGY REPORT (SQ) ---
EXAM DESCRIPTION: KUB/ABDOMEN (SINGLE VIEW) COMPLETED DATE/TIME: 09/09/2018 9:32 am REASON FOR STUDY: distension COMPARISON: None. NUMBER OF VIEWS: One view. TECHNIQUE: Supine radiographic image of the abdomen acquired. LIMITATIONS: None. FINDINGS: BOWEL GAS PATTERN: Normal bowel gas pattern. No dilated loops. CALCIFICATIONS: No suspicious calcifications. SOFT TISSUES: No gross mass or suggestion of organomegaly. HARDWARE: None in the abdomen. Hardware in the lumbar spine. BONES: No acute fracture. Degenerative changes and surgical changes in the lumbar spine with hardwar e. OTHER: No other significant finding. IMPRESSION: NO RADIOGRAPHIC EVIDENCE FOR ACUTE ABDOMINAL DISEASE. TECHNICAL DOCUMENTATION: JOB ID: [id number] [employer]- All Rights Reserved Reading location - IP/workstation name: [email or web address]
[2018-09-09] MEDS: SODIUM POLYSTYRENE SULFONATE 15 GM/60 ML PO ONE ×2 (09:59→10:12)
[2018-09-09] MEDS: MULTIVIT-STRESS FORMULA/ZINC TABLET PO SCH (10:00)
[2018-09-09] MEDS: CHOLECALCIFEROL (D3) 1,000 UNIT (25 MCG) TABLET PO SCH (10:00)
[2018-09-09] MEDS ORDERED: LUTEIN PO SCH (10:00)
[2018-09-09] MEDS ORDERED: ATORVASTATIN CALCIUM 20 MG TABLET PO SCH ×2 (10:00→22:00)
[2018-09-09] MEDS ORDERED: FERROUS SULFATE 325 MG TABLET PO SCH (10:00)
[2018-09-09] MEDS: DOCUSATE SODIUM 100 MG CAPSULE PO SCH ×2 (10:00→17:03)
[2018-09-09] MEDS ORDERED: ZEAXANTHIN PO SCH (10:00)
[2018-09-09] MEDS: TIZANIDINE HCL 4 MG TABLET PO SCH ×2 (10:12→22:20)
[2018-09-09] MEDS: TOPIRAMATE 100 MG TABLET PO SCH (10:12)
--- NOTE | 2018-09-09 10:29 | PDOC PROGRESS REPORT ---
Subjective Progress Note for:: 09/09/18 Subjective:: ELOY TOVAR is a 68 year old female patient with past medical history of migraine, hypertension, hyperlipidemia, history of congestive heart failure, type 2 diabetes mellitus, hypothyroidism brought with chief complaint of altered mental status. Patient is not able to give meaningful history. History is obtained from the ER attending note and from her daughter who is in the room during my encounter. Daughter at bedside states that she last heard fr om the patient [id number] yesterday evening after giving the patient to slices of [employer]. Daughter states that she did not her from the patient this morning so she went to her home to check on the patient and found her sitting in the same chair as the night before. She states the patient was not moving and had a blank stare on her face. Family states that patient type is currently only eats one meal a day. ER attending mentions in her note that patient took too much insulin but the daughter told me patient takes only glipizide. Daughter expressed concern of the patient developing dementia due to the patient is recent forgetfulness. EMS found the patient her blood glucose level was 45. In ER patient also found to be hypothermic with core temperature of 93. Her CT scan of the head is negative for acute stroke but she has old lacunar infarcts. Chest x-ray no acute cardiopulmonary findings. Her blood work is remarkable for acute kidney injury with BUN of 76 and creatinine of 7.69. Her urine analysis positive for nitrite, leukocyte esterase and pyuria. 09/09/2018: Patient seen and examined at bedside. She is awake alert. And has had recurrent hypoglycemia despite she is being given multiple doses of dextrose and she has been also on D10W. Her kidney function is slightly improved latest creatinine is 6.89. Patient is given also 1 mg of glucagon IM. Her daughter will need patient has not moved her bowel for the last 7 days. KUB ordered and is reportedly negative. We will try her with Kayexalate. Reason For Visit: ACUTE KIDNEY INJURY,HYPOGLYCEMIA,HYPOTHERMIA Physical Exam Vital Signs: Temp Pulse Resp BP Pulse Ox 98.5 F 73 16 139/67 H 99 09/09/18 08:07 09/09/18 08:07 09/09/18 08:07 09/09/18 08:07 09/09/18 08:07 Intake & Output 09/08/18 09/09/18 09/10/18 06:59 06:59 06:59 Intake Total 1150 Output Total 650 Balance 500 Weight 69.6 kg General appearance: PRESENT: no acute distress Head exam: PRESENT: atraumatic Eye exam: PRESENT: conjunctiva pink Neck exam: ABSENT: carotid bruit, JVD, lymphadenopathy, thyromegaly Respiratory exam: PRESENT: clear to auscultation ahsan. ABSENT: rales, rhonchi, wheezes Cardiovascular exam: PRESENT: RRR. ABSENT: diastolic murmur, rubs, systolic murmur GI/Abdominal exam: PRESENT: normal bowel sounds, soft. ABSENT: distended, guarding, mass, organolmegaly, rebound, tenderness Neurological exam: PRESENT: alert, awake Results Laboratory Results: 09/09/18 05:22 09/09/18 05:22 09/08/18 09/08/18 09/08/18 12:39 12:39 12:39 WBC 7.0 RBC 3.48 L Hgb 11.2 L Hct 33.2 L MCV 96 MCH 32.2 MCHC 33.7 RDW 13.3 Plt Count 151 Seg Neutrophils % 82.2 H Lymphocytes % 10.7 L Monocytes % 6.4 Eosinophils % 0.5 Basophils % 0.2 Absolute Neutrophils 5.8 Absolute Lymphocytes 0.8 Absolute Monocytes 0.5 Absolute Eosinophils 0.0 Absolute Basophils 0.0 Carbonic Acid HCO3/H2CO3 Ratio ABG pH ABG pCO2 ABG pO2 ABG HCO3 ABG O2 Saturation ABG Base Excess VBG pH VBG pCO2 VBG HCO3 VBG Base Excess FiO2 Sodium 137.3 Potassium 5.4 H Chloride 103 Carbon Dioxide 18 L Anion Gap 16 BUN 76 H Creatinine 7.69 H Est GFR ( Amer) 6 L Est GFR (Non-Af Amer) 5 L Glucose 61 L Lactic Acid Calcium 8.6 Total Bilirubin 0.2 AST 29 ALT 24 Alkaline Phosphatase 74 Total Protein 7.1 Albumin 4.2 TSH 0.67 Free T4 1.07 Free T3 pg/mL 2.11 L Urine Color Urine Appearance Urine pH Ur Specific [place] Urine Protein Urine Glucose (UA) Urine Ketones Urine Blood Urine Nitrite Ur Leukocyte Esterase Urine WBC (Auto) Urine RBC (Auto) 09/08/18 09/08/18 09/08/18 14:02 14:02 15:00 WBC RBC Hgb Hct MCV MCH MCHC RDW Plt Count Seg Neutrophils % Lymphocytes % Monocytes % Eosinophils % Basophils % Absolute Neutrophils Absolute Lymphocytes Absolute Monocytes Absolute Eosinophils Absolute Basophils Carbonic Acid HCO3/H2CO3 Ratio ABG pH ABG pCO2 ABG pO2 ABG HCO3 ABG O2 Saturation ABG Base Excess VBG pH 7.19 L* VBG pCO2 44.7 VBG HCO3 16.6 L VBG Base Excess -11.3 FiO2 Sodium Potassium Chloride Carbon Dioxide Anion Gap BUN Creatinine Est GFR ( Amer) Est GFR (Non-Af Amer) Glucose Lactic Acid 0.6 L Calcium Total Bilirubin AST ALT Alkaline Phosphatase Total Protein Albumin TSH Free T4 Free T3 pg/mL Urine Color YELLOW Urine Appearance CLOUDY Urine pH 6.0 Ur Specific [place] 1.008 Urine Protein 30 H Urine Glucose (UA) NEGATIVE Urine Ketones NEGATIVE Urine Blood NEGATIVE Urine Nitrite POSITIVE H Ur Leukocyte Esterase LARGE H Urine WBC (Auto) 156 Urine RBC (Auto) 3 09/08/18 09/09/18 09/09/18 17:45 05:22 05:22 WBC 6.4 RBC 3.28 L Hgb 10.6 L Hct 31.3 L MCV 96 MCH 32.4 MCHC 34.0 RDW 13.3 Plt Count 156 Seg Neutrophils % 72.6 Lymphocytes % 15.8 Monocytes % 9.0 Eosinophils % 2.4 Basophils % 0.2 Absolute Neutrophils 4.7 Absolute Lymphocytes 1.0 Absolute Monocytes 0.6 Absolute Eosinophils 0.2 Absolute Basophils 0.0 Carbonic Acid 1.08 HCO3/H2CO3 Ratio 13:1 ABG pH 7.24 L ABG pCO2 36.0 ABG pO2 82.7 ABG HCO3 14.9 L ABG O2 Saturation 94.4 ABG Base Excess -11.6 VBG pH VBG pCO2 VBG HCO3 VBG Base Excess FiO2 ROOM AIR Sodium 131.4 L Potassium 5.4 H Chloride 102 Carbon Dioxide 17 L Anion Gap 12 BUN 71 H Creatinine 6.89 H Est GFR ( Amer) 7 L Est GFR (Non-Af Amer) 6 L Glucose 35 L* Lactic Acid Calcium 7.6 L Total Bilirubin AST ALT Alkaline Phosphatase Total Protein Albumin TSH Free T4 Free T3 pg/mL Urine Color Urine Appearance Urine pH Ur Specific [place] Urine Protein Urine Glucose (UA) Urine Ketones Urine Blood Urine Nitrite Ur Leukocyte Esterase Urine WBC (Auto) Urine RBC (Auto) Impressions: Renal Ultrasound 09/08/18 00:00 IMPRESSION: NORMAL RENAL AND BLADDER ULTRASOUND. Chest X-Ray 09/08/18 13:40 IMPRESSION: NO ACUTE FINDINGS. Head CT 09/08/18 13:40 IMPRESSION: OLD BILATERAL LACUNAR BASAL GANGLION INFARCTS. MINIMAL CHRONIC WHITE MATTER CHANGES. OTHERWISE, NORMAL NONCONTRAST CT HEAD. EVIDENCE OF ACUTE STROKE: NO. KUB X-Ray 09/09/18 00:00 IMPRESSION: NO RADIOGRAPHIC EVIDENCE FOR ACUTE ABDOMINAL DISEASE. Assessment and Plan - Diagnosis (1) Acute kidney injury Is this a current diagnosis for this admission?: Yes Plan: There is slight improvement (2) Acute encephalopathy Is this a current diagnosis for this admission?: Yes Plan: Resolving. (3) Hypoglycemia Is this a current diagnosis for this admission?: Yes Plan: Still patient has recurrent hypoglycemia. She has been given multiple doses of dextrose and she is now on D10 W. (4) Complicated UTI (urinary tract infection) Is this a current diagnosis for this admission?: Yes Plan: Continue Levaquin (5) Hypertension Qualifiers: Hypertension type: essential hypertension Qualified Code(s): I10 - Essential (primary) hypertension Is this a current diagnosis for this admission?: Yes Plan: Continue her home medication. (6) Type 2 diabetes mellitus Is this a current diagnosis for this admission?: Yes Plan: Hold glipizide and start her on sliding scale. (7) Hyperlipidemia Qualifiers: Hyperlipidemia type: unspecified Qualified Code(s): E78.5 - Hyperlipidemia, unspecified Is this a current diagnosis for this admission?: Yes Plan: Continue her Lipitor. (8) Hypothyroidism (acquired) Is this a current diagnosis for this admission?: Yes Plan: Continue her Synthroid.
[2018-09-09] MEDS ORDERED: INSULIN LISPRO 100 UNIT/ML 3 ML VIAL SUBCUT SCH (11:00)
[2018-09-09 11:27] LABS: ANION GAP 16 (5-19); BLOOD UREA NITROGEN 71 mg/dL (7-20); CALCIUM 7.5 mg/dL (8.4-10.2); CARBON DIOXIDE 15 mmol/L (22-30); CHLORIDE 100 mmol/L (98-107); POTASSIUM 5.4 mmol/L (3.6-5.0); SODIUM 130.5 mmol/L (137-145)
[2018-09-09 11:36] LABS: GLUCOSE 39 mg/dL (75-110)
[2018-09-09] MEDS ORDERED: METOCLOPRAMIDE HCL INJ/PF 10 MG/2 ML SDV ONE (12:21)
[2018-09-09] MEDS: DEXTROSE 10%-WATER 1,000 ML IV PRN ×2 (13:02→17:12)
[2018-09-09] MEDS: NORMAL SALINE 1000 ML 1,000 ML IV PRN (13:14)
--- NOTE | 2018-09-09 13:58 | PDOC CONSULTATION ---
Consultation Consult Date: 09/09/18 Provider Consulted: Nayla ALBARRAN History of Present Illness Admission Date/PCP: 09/08/18 16:42 RUFINO NEWMAN MD History of Present Illness: ELOY TOVAR is a 68 year old female patient with past medical history of Type 2 diabetes mellitus, hypertension, hyperlipidemia, congestive heart failure, hypothyroidism was brought with chief complaint of altered mental status. Crystal strong's 3 daughters are at her bedside.The patient's youngest daughter last communicated with her mother at 6 PM yesterday.She was unable to contact with her and therefore the next morning she went over to her house and was not able to get inside the house. She was finally able to get inside the house and found her mother sitting on a chair with a vacant look and unresponsive. She went on to call 911 who came to the house and found her blood sugar to be 45 and administered D50 and transferred her to the hospital. According to the daughter the patient has been deteriorating slowly over the last few weeks. She has had had increasing memory issues. Her food intake has been suspect. Compliance with her medications is also suspect that she lives alone. Daughter expressed concern of the patient developing dementia due to the patient is recent forgetfulness. Evaluations in the ER revealed that the patient was more responsive and she was hypothermic. Her CT scan of the head is negative for acute stroke but she has old lacunar infarcts. Chest x-ray no acute cardiopulmonary findings. Her blood work is remarkable for acute kidney injury with BUN of 76 and creatinine of 7.69. Her urine analysis positive for nitrite, leukocyte esterase and pyuria. When I see you the patient is responsive but she is confused and disoriented x2. She denies any history of chest pains or shortness of breath or fever or chills. She is got her jerking movements of her upper extremities. She feels very tired and weak. Past Medical History Cardiac Medical History: Reports: Hyperlipidemia, Hypertension-primary Neurological Medical History: Reports: Migraine Endocrine Medical History: Reports: Diabetes Mellitus Type 2 Psychiatric Medical History: Reports: Depression Past Surgical History Past Surgical History: Reports: Hysterectomy, Orthopedic Surgery - left knee replacement; bilateral rotator cuff Social History Smoking Status: Never Smoker Frequency of Alcohol Use: None Hx Recreational Drug Use: No Drugs: None Hx Prescription Drug Abuse: Yes - Advance Directive Resuscitation Status: Full Code Family History Parental Family History Reviewed: Yes - Negative for ESRD Children Family History Reviewed: No Sibling(s) Family History Reviewed.: No Medication/Allergy Home Medications: Atorvastatin Calcium 20 mg PO DAILY 05/11/12 Cyclobenzaprine HCl 10 mg PO Q8HP PRN 05/11/12 Levothyroxine Sodium [Synthroid 0.075 mg Tablet] 0.075 mg PO Q6AM 05/11/12 Topiramate [Topamax 100 Mg Tablet] 100 mg PO Q12 05/11/12 Glipizide [Glipizide ER] 2.5 mg PO DAILY 04/03/13 Lutein/Zeaxanthin [Lutein-Zeaxanthin 25-5 mg Sfgl] 1 each PO DAILY 04/03/13 Cholecalciferol (Vitamin D3) [Vitamin D3 1000 Unit Tablet] 2,000 unit PO DAILY 01/17/17 Cinnamon Bark [Cinnamon] 3,000 mg PO DAILY 01/17/17 Amlodipine Besylate/Benazepril [Amlodipine-Benazepril 5-10 mg] 1 cap PO Q2D 09/08/18 Hydrocodone Bit/Acetaminophen [Hydrocodon-Acetaminophn 10-325] 1 each PO Q4HP PRN 09/08/18 Iron Ps Complex/B12/Folic Acid [Poly-Iron 150 Forte Capsule] 1 each PO DAILY 09/08/18 Tizanidine HCl [Zanaflex 4 Mg Tablet] 4 mg PO Q12 09/08/18 Vit B1 Mn/B2/B3/B5/B6/B12/C/FA [B Complex with Vitamin C Tab] 1 each PO DAILY 09/08/18 Allergies/Adverse Reactions: Iodinated Contrast- Oral and IV Dye Allergy (Intermediate, Verified 03/13/18 09:31) Pruritis morphine Allergy (Intermediate, Verified 03/13/18 09:31) Pruritis oxycodone Allergy (Intermediate, Verified 03/13/18 09:31) Pruritis Penicillins Allergy (Intermediate, Verified 03/13/18 09:31) Difficulty breathing fentanyl [From Duragesic] Allergy (Unknown, Verified 03/13/18 09:31) hydromorphone HCl [From Dilaudid] Allergy (Unknown, Verified 03/13/18 09:31) meloxicam [From Mobic] Allergy (Verified 03/13/18 09:31) Sulfa (Sulfonamide Antibiotics) Allergy (Verified 03/13/18 09:31) Review of Systems ROS unobtainable: Due to mental status Constitutional: PRESENT: as per HPI, fatigue, weakness. ABSENT: fever(s), headache(s), night sweats Ears: ABSENT: hearing changes Nose, Mouth, and Throat: ABSENT: mouth pain, sore throat Cardiovascular: ABSENT: chest pain, dyspnea on exertion, edema, orthropnea, palpitations Respiratory: ABSENT: dyspnea, hemoptysis Gastrointestinal: ABSENT: abdominal pain, bloating, coffee ground emesis, constipation, diarrhea, dysphagia, heartburn, hematemesis, hematochezia Genitourinary: ABSENT: difficulty urinating, dysuria, hematuria Musculoskeletal: ABSENT: deformity, joint swelling Integumentary: ABSENT: diaphoresis, erythema, pruritus, rash, wounds Neurological: PRESENT: confusion, memory loss. ABSENT: abnormal movements, abnormal speech, focal weakness, frequent falls, lack of coordination, numbness, paresthesias, restless legs Psychiatric: ABSENT: depression, hallucinations Endocrine: ABSENT: cold intolerance Hematologic/Lymphatic: ABSENT: easy bleeding, easy bruising Physical Exam Vital Signs: Temp Pulse Resp BP Pulse Ox 98.5 F 75 16 155/66 H 100 09/09/18 11:39 09/09/18 11:39 09/09/18 11:39 09/09/18 11:39 09/09/18 11:39 Intake & Output 09/08/18 09/09/18 09/10/18 06:59 06:59 06:59 Intake Total 1150 0 Output Total 650 Balance 500 0 Weight 69.6 kg General appearance: PRESENT: no acute distress Eye exam: PRESENT: conjunctiva pink, EOMI, PERRLA. ABSENT: nystagmus, scleral icterus Ear exam: PRESENT: normal external ear exam Mouth exam: PRESENT: neck supple. ABSENT: moist Neck exam: ABSENT: lymphadenopathy, meningismus, tenderness, thyromegaly, tracheal deviation Respiratory exam: PRESENT: clear to auscultation ahsan, decreased breath sounds. ABSENT: crackles Cardiovascular exam: PRESENT: +S1, +S2 GI/Abdominal exam: PRESENT: normal bowel sounds, soft. ABSENT: organomegaly, tenderness Extremities exam: ABSENT: pedal edema Neurological exam: PRESENT: awake, oriented to person, oriented to place. ABSENT: oriented to time, oriented to situation Psychiatric exam: PRESENT: anxious Skin exam: ABSENT: cyanosis, erythema, mottled, rash Results Laboratory Results: 09/09/18 05:22 09/09/18 10:50 09/08/18 09/08/18 09/08/18 12:39 12:39 12:39 WBC 7.0 RBC 3.48 L Hgb 11.2 L Hct 33.2 L MCV 96 MCH 32.2 MCHC 33.7 RDW 13.3 Plt Count 151 Seg Neutrophils % 82.2 H Lymphocytes % 10.7 L Monocytes % 6.4 Eosinophils % 0.5 Basophils % 0.2 Absolute Neutrophils 5.8 Absolute Lymphocytes 0.8 Absolute Monocytes 0.5 Absolute Eosinophils 0.0 Absolute Basophils 0.0 Carbonic Acid HCO3/H2CO3 Ratio ABG pH ABG pCO2 ABG pO2 ABG HCO3 ABG O2 Saturation ABG Base Excess VBG pH VBG pCO2 VBG HCO3 VBG Base Excess FiO2 Sodium 137.3 Potassium 5.4 H Chloride 103 Carbon Dioxide 18 L Anion Gap 16 BUN 76 H Creatinine 7.69 H Est GFR ( Amer) 6 L Est GFR (Non-Af Amer) 5 L Glucose 61 L Lactic Acid Calcium 8.6 Total Bilirubin 0.2 AST 29 ALT 24 Alkaline Phosphatase 74 Total Protein 7.1 Albumin 4.2 TSH 0.67 Free T4 1.07 Free T3 pg/mL 2.11 L Urine Color Urine Appearance Urine pH Ur Specific [place] Urine Protein Urine Glucose (UA) Urine Ketones Urine Blood Urine Nitrite Ur Leukocyte Esterase Urine WBC (Auto) Urine RBC (Auto) 09/08/18 09/08/18 09/08/18 14:02 14:02 15:00 WBC RBC Hgb Hct MCV MCH MCHC RDW Plt Count Seg Neutrophils % Lymphocytes % Monocytes % Eosinophils % Basophils % Absolute Neutrophils Absolute Lymphocytes Absolute Monocytes Absolute Eosinophils Absolute Basophils Carbonic Acid HCO3/H2CO3 Ratio ABG pH ABG pCO2 ABG pO2 ABG HCO3 ABG O2 Saturation ABG Base Excess VBG pH 7.19 L* VBG pCO2 44.7 VBG HCO3 16.6 L VBG Base Excess -11.3 FiO2 Sodium Potassium Chloride Carbon Dioxide Anion Gap BUN Creatinine Est GFR ( Amer) Est GFR (Non-Af Amer) Glucose Lactic Acid 0.6 L Calcium Total Bilirubin AST ALT Alkaline Phosphatase Total Protein Albumin TSH Free T4 Free T3 pg/mL Urine Color YELLOW Urine Appearance CLOUDY Urine pH 6.0 Ur Specific [place] 1.008 Urine Protein 30 H Urine Glucose (UA) NEGATIVE Urine Ketones NEGATIVE Urine Blood NEGATIVE Urine Nitrite POSITIVE H Ur Leukocyte Esterase LARGE H Urine WBC (Auto) 156 Urine RBC (Auto) 3 09/08/18 09/09/18 09/09/18 17:45 05:22 05:22 WBC 6.4 RBC 3.28 L Hgb 10.6 L Hct 31.3 L MCV 96 MCH 32.4 MCHC 34.0 RDW 13.3 Plt Count 156 Seg Neutrophils % 72.6 Lymphocytes % 15.8 Monocytes % 9.0 Eosinophils % 2.4 Basophils % 0.2 Absolute Neutrophils 4.7 Absolute Lymphocytes 1.0 Absolute Monocytes 0.6 Absolute Eosinophils 0.2 Absolute Basophils 0.0 Carbonic Acid 1.08 HCO3/H2CO3 Ratio 13:1 ABG pH 7.24 L ABG pCO2 36.0 ABG pO2 82.7 ABG HCO3 14.9 L ABG O2 Saturation 94.4 ABG Base Excess -11.6 VBG pH VBG pCO2 VBG HCO3 VBG Base Excess FiO2 ROOM AIR Sodium 131.4 L Potassium 5.4 H Chloride 102 Carbon Dioxide 17 L Anion Gap 12 BUN 71 H Creatinine 6.89 H Est GFR ( Amer) 7 L Est GFR (Non-Af Amer) 6 L Glucose 35 L* Lactic Acid Calcium 7.6 L Total Bilirubin AST ALT Alkaline Phosphatase Total Protein Albumin TSH Free T4 Free T3 pg/mL Urine Color Urine Appearance Urine pH Ur Specific [place] Urine Protein Urine Glucose (UA) Urine Ketones Urine Blood Urine Nitrite Ur Leukocyte Esterase Urine WBC (Auto) Urine RBC (Auto) 09/09/18 10:50 WBC RBC Hgb Hct MCV MCH MCHC RDW Plt Count Seg Neutrophils % Lymphocytes % Monocytes % Eosinophils % Basophils % Absolute Neutrophils Absolute Lymphocytes Absolute Monocytes Absolute Eosinophils Absolute Basophils Carbonic Acid HCO3/H2CO3 Ratio ABG pH ABG pCO2 ABG pO2 ABG HCO3 ABG O2 Saturation ABG Base Excess VBG pH VBG pCO2 VBG HCO3 VBG Base Excess FiO2 Sodium 130.5 L Potassium 5.4 H Chloride 100 Carbon Dioxide 15 L Anion Gap 16 BUN 71 H Creatinine 7.01 H Est GFR ( Amer) 7 L Est GFR (Non-Af Amer) 6 L Glucose 39 L* Lactic Acid Calcium 7.5 L Total Bilirubin AST ALT Alkaline Phosphatase Total Protein Albumin TSH Free T4 Free T3 pg/mL Urine Color Urine Appearance Urine pH Ur Specific [place] Urine Protein Urine Glucose (UA) Urine Ketones Urine Blood Urine Nitrite Ur Leukocyte Esterase Urine WBC (Auto) Urine RBC (Auto) Impressions: Renal Ultrasound 09/08/18 00:00 IMPRESSION: NORMAL RENAL AND BLADDER ULTRASOUND. Chest X-Ray 09/08/18 13:40 IMPRESSION: NO ACUTE FINDINGS. Head CT 09/08/18 13:40 IMPRESSION: OLD BILATERAL LACUNAR BASAL GANGLION INFARCTS. MINIMAL CHRONIC WHITE MATTER CHANGES. OTHERWISE, NORMAL NONCONTRAST CT HEAD. EVIDENCE OF ACUTE STROKE: NO. KUB X-Ray 09/09/18 00:00 IMPRESSION: NO RADIOGRAPHIC EVIDENCE FOR ACUTE ABDOMINAL DISEASE. Assessment & Plan - Diagnosis (1) Acute encephalopathy Is this a current diagnosis for this admission?: Yes Plan: Patient is got altered mental status because of combination of factors which includes hypoglycemia, uremia and possible's postictal. She also may have underlying dementia given her lacunar infarcts/vascular. (2) Acute kidney injury Is this a current diagnosis for this admission?: Yes Plan: She has a baseline creatinine 1.3 done a few years ago in hospital. We will try to obtain notes from her primary care to see what was her most recent renal numbers. However, currently she has FABIAN and she has features of uremia.Besides that she is also got electrolyte abnormalities in the form of mild hyperkalemia, metabolic acidosis and hyponatremia. See how she responds to conservative management overnight and will reevaluate her for dialysis requirements in the mo rning.Lengthy discussion with the daughters at the bedside and they are willing to proceed along these guidelines. (3) Hyperkalemia Is this a current diagnosis for this admission?: Yes Plan: Mild. See response to Kayexalate. (4) Hypertension Qualifiers: Hypertension type: essential hypertension Qualified Code(s): I10 - Essential (primary) hypertension Is this a current diagnosis for this admission?: Yes Plan: Controlled. (5) Hypoglycemia Plan: She is been taking long-acting glipizide ER. Unsure whether she has over dosed herself as well. Currently she did not respond to initial treatments with D50 and she is now on D10. See how she responds to conservative management and she has had no features of severe hypoglycemia since she has been in the hospital. (6) Metabolic acidosis Plan: See how she responds to rehydration and latest will decide about starting on replacements or whether she needs dialysis. (7) Seizure-like activity Is this a current diagnosis for this admission?: Yes Plan: Highly possible that she had a seizures from severe hypoglycemia in-house. See how she responds over time with correction of her hypoglycemia as well as her uremia. (8) Type 2 diabetes mellitus Qualifiers: Diabetes mellitus termite inspector insulin use: with jail use Diabetes mellitus complication status: with hypoglycemia Diabetes mellitus complication detail: with coma Qualified Code(s): E11.641 - Type 2 diabetes mellitus with hypoglycemia with coma; Z79.4 - care home (current) use of insulin Plan: Needs close monitoring now as well as in the future. (9) Urinary tract infection Qualifiers: Urinary tract infection type: acute pyelonephritis Qualified Code(s): N10 - Acute pyelonephritis Plan: Currently on antibiotics. Blood cultures are pending.
[2018-09-09] MEDS: METOCLOPRAMIDE HCL INJ/PF 10 MG/2 ML SDV IV PRN (20:25)
[2018-09-09] MEDS: FAMOTIDINE 20 MG TABLET PO SCH (22:26)
[2018-09-10] MEDS: METOCLOPRAMIDE HCL INJ/PF 10 MG/2 ML SDV IV PRN ×3 (03:35→16:30)
[2018-09-10] MEDS: NORMAL SALINE 1000 ML 1,000 ML IV PRN ×2 (03:36→08:31)
[2018-09-10] MEDS: ACETAMINOPHEN 325 MG TABLET PO PRN (03:36)
[2018-09-10 04:36] LABS: ARTERIAL BLOOD HCO3 13.5 mmol/L (20-24); ARTERIAL BLOOD O2 SATURATION 94.3 % (94-98); ARTERIAL BLOOD PCO2 26.5 mmHg (35-45); ARTERIAL BLOOD PH 7.33 (7.35-7.45); ARTERIAL BLOOD PO2 74.4 mmHg (80-100); ARTERIAL BLOOD TOTAL CO2 14.3 mmol/L (21-25)
[2018-09-10 04:38] LABS: ARTERIAL BLOOD FIO2 1 LNC
[2018-09-10 04:54] LABS: ANION GAP 15 (5-19); BLOOD UREA NITROGEN 68 mg/dL (7-20); CARBON DIOXIDE 13 mmol/L (22-30); CHLORIDE 96 mmol/L (98-107); GLUCOSE 83 mg/dL (75-110); POTASSIUM 5.6 mmol/L (3.6-5.0); SODIUM 124.3 mmol/L (137-145)
[2018-09-10] MEDS: LEVOTHYROXINE SODIUM 0.075 MG TABLET PO SCH (05:30)
[2018-09-10] MEDS: HEPARIN SOD (PORCINE) 5,000 UNIT/ML 1 ML SYRINGE SUBCUT SCH ×3 (05:34→21:47)
[2018-09-10] MEDS ORDERED: CALCIUM GLUCONATE 1000 MG/10 ML INJ IV ONE (06:37)
[2018-09-10] MEDS ORDERED: CALCIUM GLUCONATE 1,000 MG in DEXTROSE 5%-WATER 50 ML IV ONE (07:00)
[2018-09-10] MEDS ORDERED: DEXTROSE 10%-WATER 1,000 ML IV PRN (07:58)
[2018-09-10] MEDS ORDERED: MAGNESIUM SULFATE INJ 8 MEQ/2 ML IV ONE (07:59)
[2018-09-10] MEDS ORDERED: SODIUM POLYSTYRENE SULFONATE 15 GM/60 ML ONE (08:27)
[2018-09-10] MEDS: SODIUM BICARBONATE 650 MG TABLET PO SCH ×3 (08:30→21:48)
[2018-09-10] MEDS ORDERED: SODIUM POLYSTYRENE SULFONATE 15 GM/60 ML PO ONE (08:45)
[2018-09-10] MEDS ORDERED: METOCLOPRAMIDE HCL INJ/PF 10 MG/2 ML SDV IV ONE (08:45)
[2018-09-10] MEDS ORDERED: LORAZEPAM INJ 2 MG/1 ML VIAL ONE (08:59)
[2018-09-10] MEDS ORDERED: LORAZEPAM INJ 2 MG/1 ML VIAL IV ONE (08:59)
[2018-09-10] MEDS ORDERED: MAGNESIUM SULFATE/D5W 1 GM/100 ML RTUPB IV ONE (09:00)
[2018-09-10] MEDS: MULTIVIT-STRESS FORMULA/ZINC TABLET PO SCH (09:07)
[2018-09-10] MEDS: TIZANIDINE HCL 4 MG TABLET PO SCH ×2 (09:07→21:48)
[2018-09-10] MEDS: CHOLECALCIFEROL (D3) 1,000 UNIT (25 MCG) TABLET PO SCH (09:07)
[2018-09-10] MEDS: DOCUSATE SODIUM 100 MG CAPSULE PO SCH ×2 (09:07→17:36)
[2018-09-10] MEDS: LEVOFLOXACIN 250 MG/D5W RTU 250 MG/50 ML RTUPB IV SCH (09:55)
[2018-09-10] MEDS ORDERED: PHENYTOIN SODIUM INJ/PF 250 MG/5 ML SDV IV ONE ×2 (10:00→12:30)
[2018-09-10] MEDS ORDERED: PHENYTOIN SODIUM 1,000 MG in NORMAL SALINE 250 ML IV ONE (10:00)
[2018-09-10] MEDS ORDERED: HEPARIN SOD (PORCINE) 1,000 UNIT/ML 10 ML VIAL ONE (10:08)
--- NOTE | 2018-09-10 10:48 | PDOC PROGRESS REPORT ---
Subjective Progress Note for:: 09/10/18 Subjective:: ELOY TOVAR is a 68 year old female patient with past medical history of migraine, hypertension, hyperlipidemia, history of congestive heart failure, type 2 diabetes mellitus, hypothyroidism brought with chief complaint of altered mental status. Patient is not able to give meaningful history. History is obtained from the ER attending note and from her daughter who is in the room during my encounter. Daughter at bedside states that she last heard fr om the patient [id number] yesterday evening after giving the patient to slices of [employer]. Daughter states that she did not her from the patient this morning so she went to her home to check on the patient and found her sitting in the same chair as the night before. She states the patient was not moving and had a blank stare on her face. Family states that patient type is currently only eats one meal a day. ER attending mentions in her note that patient took too much insulin but the daughter told me patient takes only glipizide. Daughter expressed concern of the patient developing dementia due to the patient is recent forgetfulness. EMS found the patient her blood glucose level was 45. In ER patient also found to be hypothermic with core temperature of 93. Her CT scan of the head is negative for acute stroke but she has old lacunar infarcts. Chest x-ray no acute cardiopulmonary findings. Her blood work is remarkable for acute kidney injury with BUN of 76 and creatinine of 7.69. Her urine analysis positive for nitrite, leukocyte esterase and pyuria. 09/09/2018: Patient seen and examined at bedside. She is awake alert. And has had recurrent hypoglycemia despite she is being given multiple doses of dextrose and she has been also on D10W. Her kidney function is slightly improved latest creatinine is 6.89. Patient is given also 1 mg of glucagon IM. Her daughter will need patient has not moved her bowel for the last 7 days. KUB ordered and is reportedly negative. We will try her with Kayexalate. 09/10/2018: Patient seen propped up in bed. Reportedly patient did not have sleep last night. Her blood sugars normalized in the latest Accu-Chek is 124. Also started to have jerking movements of her upper extremity and the her face. She is given 2 mg of IV Ativan and the jerking movements subsided. So loaded with phenytoin 1 g and maintained with Keppra 500 mg IV twice daily. Her kidney function and hyperkalemia is worsening. Dr. Rubi plan to dialyze her. Reason For Visit: ACUTE KIDNEY INJURY,HYPOGLYCEMIA,HYPOTHERMIA Physical Exam Vital Signs: Temp Pulse Resp BP Pulse Ox 98.7 F 84 18 151/106 H 100 09/10/18 07:48 09/10/18 07:48 09/10/18 07:48 09/10/18 07:48 09/10/18 07:48 Intake & Output 09/09/18 09/10/18 09/11/18 06:59 06:59 06:59 Intake Total 1150 1000 1100 Output Total 650 1125 Balance 500 -125 1100 Weight 69.6 kg General appearance: PRESENT: mild distress Head exam: PRESENT: atraumatic Eye exam: PRESENT: conjunctiva pink Mouth exam: PRESENT: dry mucosa Neck exam: ABSENT: carotid bruit, JVD, lymphadenopathy, thyromegaly Respiratory exam: PRESENT: clear to auscultation ahsan. ABSENT: rales, rhonchi, wheezes Cardiovascular exam: PRESENT: RRR. ABSENT: diastolic murmur, rubs, systolic murmur Neurological exam: PRESENT: alert, awake Results Laboratory Results: 09/09/18 05:22 09/09/18 09/10/18 09/10/18 10:50 04:16 04:20 Carbonic Acid 0.80 L HCO3/H2CO3 Ratio 16:1 ABG pH 7.33 L ABG pCO2 26.5 L ABG pO2 74.4 L ABG HCO3 13.5 L ABG O2 Saturation 94.3 ABG Base Excess -11.0 FiO2 1 LNC Sodium 130.5 L 124.3 L Potassium 5.4 H 5.6 H Chloride 100 96 L Carbon Dioxide 15 L 13 L Anion Gap 16 15 BUN 71 H 68 H Creatinine 7.01 H 7.01 H Est GFR ( Amer) 7 L 7 L Est GFR (Non-Af Amer) 6 L 6 L Glucose 39 L* 83 Calcium 7.5 L 7.0 L* Phosphorus 7.0 H Magnesium 1.5 L 09/08/18 15:00 Clean Catch Midstream Urine Culture - Final Escherichia Coli Impressions: Renal Ultrasound 09/08/18 00:00 IMPRESSION: NORMAL RENAL AND BLADDER ULTRASOUND. Chest X-Ray 09/08/18 13:40 IMPRESSION: NO ACUTE FINDINGS. Head CT 09/08/18 13:40 IMPRESSION: OLD BILATERAL LACUNAR BASAL GANGLION INFARCTS. MINIMAL CHRONIC WHITE MATTER CHANGES. OTHERWISE, NORMAL NONCONTRAST CT HEAD. EVIDENCE OF ACUTE STROKE: NO. KUB X-Ray 09/09/18 00:00 IMPRESSION: NO RADIOGRAPHIC EVIDENCE FOR ACUTE ABDOMINAL DISEASE. Assessment and Plan - Diagnosis (1) Hyperkalemia Is this a current diagnosis for this admission?: Yes Plan: Potassium level worsened from 5.4-5.6. Patient is not able to take Kayexalate. Insulin going to be given because of her hypoglycemia. Hopefully during the dialysis which will be corrected. (2) Seizure-like activity Is this a current diagnosis for this admission?: Yes Plan: Her CT head is positive for altered basilar lacunar bilateral ganglial infarcts. She is given a dose of Ativan and seizure activity subsided. Patient loaded wit h phenytoin and maintained with Keppra. (3) Acute kidney injury Is this a current diagnosis for this admission?: Yes Plan: Kidney function is worsening. Dr. Rubi plan to dialyze her. (4) Acute encephalopathy Is this a current diagnosis for this admission?: Yes Plan: Improving (5) Hypoglycemia Is this a current diagnosis for this admission?: Yes Plan: Has resolved (6) Complicated UTI (urinary tract infection) Is this a current diagnosis for this admission?: Yes Plan: Continue Levaquin (7) Hypertension Qualifiers: Hypertension type: essential hypertension Qualified Code(s): I10 - Essential (primary) hypertension Is this a current diagnosis for this admission?: Yes Plan: Continue her home medication. (8) Type 2 diabetes mellitus Is this a current diagnosis for this admission?: Yes Plan: Hold glipizide and start her on sliding scale. (9) Hyperlipidemia Qualifiers: Hyperlipidemia type: unspecified Qualified Code(s): E78.5 - Hyperlipidemia, unspecified Is this a current diagnosis for this admission?: Yes Plan: Continue her Lipitor. (10) Hypothyroidism (acquired) Is this a current diagnosis for this admission?: Yes Plan: Continue her Synthroid.
[2018-09-10] MEDS: LEVETIRACETAM 500 MG/NACL-ISO 500 MG/100 ML RTUPB IV SCH ×2 (11:03→21:53)
[2018-09-10 11:10] LABS: ANION GAP 14 (5-19); BLOOD UREA NITROGEN 66 mg/dL (7-20); CALCIUM 7.2 mg/dL (8.4-10.2); CARBON DIOXIDE 14 mmol/L (22-30); CHLORIDE 94 mmol/L (98-107); GLUCOSE 95 mg/dL (75-110); POTASSIUM 5.2 mmol/L (3.6-5.0)
--- NOTE | 2018-09-10 14:38 | PDOC PROGRESS REPORT ---
Subjective Progress Note for:: 09/10/18 Reason For Visit: Patient seen earlier this morning. She has deteriorated further clinically according to the daughter as well as the nurse at the bedside.She is been having more jerking movements and periods of confusion. She also did not sleep well last night because of being restless. Electrolytes shows further deterioration of her sodium and potassium and acidosis. Her renal numbers are still high. She has features suggestive of progressive uremia. Blood sugars have been maintained with the current D10 fortunately. Other labs and medications were reviewed with the patient's daughter and the nurse. Patient was seen subsequently later in the day on dialysis.She has had a temporary femoral catheter placed by Dr. Anand. Vital signs are stable. Plan to remove no fluid. Dialysis orders were reviewed with the treating dialysis nurse. Physical Exam Vital Signs: Temp Pulse Resp BP Pulse Ox 98.7 F 73 18 151/106 H 100 09/10/18 07:48 09/10/18 13:58 09/10/18 07:48 09/10/18 07:48 09/10/18 07:48 Intake & Output 09/09/18 09/10/18 09/11/18 06:59 06:59 06:59 Intake Total 1150 1000 1250 Output Total 650 1125 Balance 500 -125 1250 Weight 69.6 kg General appearance: PRESENT: no acute distress - However the patient is sleeping hard and poorly responsive to shouting or gentle stimulation's. The daughter chimes in saying that she did not sleep well last night and she was given IV Ativan short time ago. Eye exam: PRESENT: EOMI, PERRLA. ABSENT: periorbital swelling Respiratory exam: PRESENT: clear to auscultation ahsan, decreased breath sounds. ABSENT: crackles Cardiovascular exam: PRESENT: +S1, +S2 GI/Abdominal exam: PRESENT: normal bowel sounds, soft. ABSENT: organomegaly, tenderness Extremities exam: ABSENT: pedal edema Neurological exam: PRESENT: altered Results Laboratory Results: 09/09/18 05:22 09/10/18 10:07 09/10/18 09/10/18 09/10/18 04:16 04:20 10:07 Carbonic Acid 0.80 L HCO3/H2CO3 Ratio 16:1 ABG pH 7.33 L ABG pCO2 26.5 L ABG pO2 74.4 L ABG HCO3 13.5 L ABG O2 Saturation 94.3 ABG Base Excess -11.0 FiO2 1 LNC Sodium 124.3 L 122.0 L Potassium 5.6 H 5.2 H Chloride 96 L 94 L Carbon Dioxide 13 L 14 L Anion Gap 15 14 BUN 68 H 66 H Creatinine 7.01 H 6.87 H Est GFR ( Amer) 7 L 7 L Est GFR (Non-Af Amer) 6 L 6 L Glucose 83 95 Calcium 7.0 L* 7.2 L Phosphorus 7.0 H Magnesium 1.5 L 09/08/18 15:00 Clean Catch Midstream Urine Culture - Final Escherichia Coli Impressions: Renal Ultrasound 09/08/18 00:00 IMPRESSION: NORMAL RENAL AND BLADDER ULTRASOUND. Chest X-Ray 09/08/18 13:40 IMPRESSION: NO ACUTE FINDINGS. Head CT 09/08/18 13:40 IMPRESSION: OLD BILATERAL LACUNAR BASAL GANGLION INFARCTS. MINIMAL CHRONIC WHITE MATTER CHANGES. OTHERWISE, NORMAL NONCONTRAST CT HEAD. EVIDENCE OF ACUTE STROKE: NO. KUB X-Ray 09/09/18 00:00 IMPRESSION: NO RADIOGRAPHIC EVIDENCE FOR ACUTE ABDOMINAL DISEASE. Assessment & Plan - Diagnosis (1) Acute encephalopathy Is this a current diagnosis for this admission?: Yes Plan: Patient is clinically deteriorated. Likely a combination of uremia as well as other additional factors including likely disturbances including hyponatremia. (2) Acute kidney injury Is this a current diagnosis for this admission?: Yes Plan: Patient is not oliguric. However she is clinically deteriorated with the confusional state and abnormal electrolytes worsening acidosis. Clinically she looks like she has had worsening uremia. Blood sugars are fortunately holding on D10. Given her overall situation , I am recommending that we initiate hemodialysis. The procedure and its complications including infection drop in blood pressure, rare cases of cardiac arrest were discussed at length with the patient's daughter at the bedside as well as her older daughter on the phone and they are willing to proceed.I called Cecille by dialysis nurse and we discussed the patient over the phone and given orders to initiate dialysis with a 2K bath with no fluid removal for 2 hours.Patient subsequently being seen on dialysis. She is undergoing dialysis without any issues. Vital signs are stable. Dialysis is being supervised to ensure safe and smooth procedure. Plan to remove no fluid. (3) Hyperkalemia Is this a current diagnosis for this admission?: Yes Plan: She should respond to hemodialysis. (4) Hypertension Qualifiers: Hypertension type: essential hypertension Qualified Code(s): I10 - Essential (primary) hypertension Is this a current diagnosis for this admission?: Yes Plan: Controlled. (5) Hypoglycemia Plan: Currently stable with the same. Advised to cut it down to 75 cc an hour and monitor given her acute hyponatremia. (6) Metabolic acidosis Plan: Started p.o. replacements and see how she responds to dialysis. (7) Seizure-like activity Is this a current diagnosis for this admission?: Yes Plan: Unsure if she has had any further seizure attacks even though some of these jerking movements according to the nurse might be seizure related. Most likely cause of that would be uremia given the fact that the hypoglycemia seems corrected on D10. (8) Type 2 diabetes mellitus Qualifiers: Diabetes mellitus assistant terminal manager insulin use: with assistant terminal manager use Diabetes mellitus complication status: with hypoglycemia Diabetes mellitus complication detail: with coma Qualified Code(s): E11.641 - Type 2 diabetes mellitus with hypoglycemia with coma; Z79.4 - FPC (current) use of insulin Plan: Close monitoring. (9) Urinary tract infection Qualifiers: Urinary tract infection type: acute pyelonephritis Qualified Code(s): N10 - Acute pyelonephritis Plan: On IV antibiotics. Monitor. Blood cultures pending.
[2018-09-10] MEDS ORDERED: TUBERCULIN,PURIF.PROT.DERIV. 5 TU/0.1 ML TEST 1 ML VIAL ID PRN (15:50)
--- NOTE | 2018-09-10 16:27 | Operative Report ---
Operative Report DATE OF SURGERY: 09/10/18 PREOPERATIVE DIAGNOSIS: End-stage renal disease. POSTOPERATIVE DIAGNOSIS: End-stage renal disease. OPERATION: 1. Ultrasound evaluation of both femoral veins. 2. Insertion of temporary hemodialysis cath catheter via real-time ultrasound guidance in the left femoral vein. SURGEON: BILL LERNER SEAT NAILER: None. ANESTHESIA: Local TISSUE REMOVED OR ALTERED: Not applicable. COMPLICATIONS: Difficult to access due to tissue edema and depth of vessel and also with the femoral vein tendon beneath the femoral artery. On ultrasound. INTRAOPERATIVE FINDINGS: 20 mL. PROCEDURE: After obtaining informed consent, the patient was positioned supine at bedside. The right groin and adjacent areas were prepared with chlorhexidine and draped out with sterile linen. After the universal timeout the procedure commenced. A steriley sheathed ultrasound probe was used to evaluate the [right femoral vein]. Local anesthesia was infiltrated adjacent to the probe. Access into the right femoral was accomplished using a micropuncture needle followed, by micropuncture wire and then with a micropuncture catheter. Passage of the catheter proved difficult. After 3 attempts to side was abandoned. After the universal timeout the procedure commenced. A steriley sheathed ultrasound probe was used to evaluate the [left femoral vein]. Local anesthesia was infiltrated adjacent to the probe. Access into the left femoral was accomplished using a micropuncture needle followed, by micropuncture wire and then with a micropuncture catheter. This was followed by introduction of a 0.035 guidewire, the skin opening was enlarged slightly, serially larger dilators were now placed followed by introduction of a triaysis catheter. All of these transitions were smooth. Each lumen was aspirated of blood and irrigated with heparinized solution. The catheter was now sutured to the skin using 3-0 nylon. A Bio A patch was now applied, followed by sterile dressings. Caps were placed on the end of the each of the lumens. The procedure concluded. Copies dictated operative report to Dr. Bill Anand MD.
[2018-09-10] MEDS: FAMOTIDINE 20 MG TABLET PO SCH (21:47)
[2018-09-11] MEDS: METOCLOPRAMIDE HCL INJ/PF 10 MG/2 ML SDV IV PRN (00:19)
[2018-09-11] MEDS: HYDRALAZINE HCL INJ/PF 20 MG/1 ML SDV IV PRN (04:21)
[2018-09-11] MEDS: LEVOTHYROXINE SODIUM 0.075 MG TABLET PO SCH (05:51)
[2018-09-11] MEDS: HEPARIN SOD (PORCINE) 5,000 UNIT/ML 1 ML SYRINGE SUBCUT SCH ×3 (05:51→22:08)
[2018-09-11] MEDS: SODIUM BICARBONATE 650 MG TABLET PO SCH ×3 (05:51→22:08)
[2018-09-11 08:47] LABS: ABSOLUTE LYMPHOCYTES (AUTO) 0.9 10^3/uL (0.5-4.7); ABSOLUTE NEUT (AUTO) 10.4 10^3/uL (1.7-8.2); BASOPHILS % (AUTO) 0.1 % (0-2); EOSINOPHILS % (AUTO) 0.2 % (0-6); HEMATOCRIT 33.6 % (36.0-47.0); HEMOGLOBIN 11.4 g/dL (12.0-15.5); LYMPHOCYTES % (AUTO) 7.6 % (13-45); MEAN CORPUSCULAR HEMOGLOBIN 31.8 pg (27.0-33.4); MEAN CORPUSCULAR HGB CONC 33.8 g/dL (32.0-36.0); MEAN CORPUSCULAR VOLUME 94 fl (80-97); MONOCYTES % (AUTO) 8.3 % (3-13); PLATELET COUNT 153 10^3/uL (150-450); RED BLOOD COUNT 3.57 10^6/uL (3.72-5.28); RED CELL DISTRIBUTION WIDTH 12.8 % (11.5-14.0); SEGMENTED NEUTROPHILS % (AUTO) 83.8 % (42-78); TOTAL CELLS COUNTED % (AUTO) 100 %; WHITE BLOOD COUNT 12.4 10^3/uL (4.0-10.5)
[2018-09-11] MEDS ORDERED: DEXTROSE 10%-WATER 1,000 ML IV PRN (08:49)
[2018-09-11] MEDS: NORMAL SALINE 1000 ML 1,000 ML IV PRN (08:57)
[2018-09-11] MEDS ORDERED: NORMAL SALINE 1000 ML 1,000 ML IV PRN (09:02)
--- NOTE | 2018-09-11 09:16 | PDOC PROGRESS REPORT ---
Subjective Progress Note for:: 09/11/18 Subjective:: 68 year old female patient with past medical history of migraine, hypertension, hyperlipidemia, history of congestive heart failure, type 2 diabetes mellitus, hypothyroidism brought with chief complaint of altered mental status. Patient is not able to give meaningful history. History is obtained from the ER attending note and from her daughter who is in the room during my encounter. Daughter at bedside states that she last heard from the patient [id number] yesterday evening after giving the patient to slices of [employer]. Daughter states that she did not her from the patient this morning so she went to her home to check on the patient and found her sitting in the same chair as the night before. She states the patient was not moving and had a blank stare on her face. Family states that patient type is currently only eats one meal a day. ER attending mentions in her note that patient took too much insulin but the daughter told me patient takes only glipizide. Daughter expressed concern of the patient developing dementia due to the patient is recent forgetfulness. EMS found the patient her blood glucose level was 45. In ER patient also found to be hypothermic with core temperature of 93. Her CT scan of the head is negative for acute stroke but she has old lacunar infarcts. Chest x-ray no acute cardiopulmonary findings. Her blood work is remarkable for acute kidney injury with BUN of 76 and creatinine of 7.69. Her urine analysis positive for nitrite, leukocyte esterase and pyuria. 09/09/2018: Patient seen and examined at bedside. She is awake alert. And has had recurrent hypoglycemia despite she is being given multiple doses of dextrose and she has been also on D10W. Her kidney function is slightly improved latest creatinine is 6.89. Patient is given also 1 mg of glucagon IM. Her daughter will need patient has not moved her bowel for the last 7 days. KUB ordered and is reportedly negative. We will try her with Kayexalate. 09/10/2018: Patient seen propped up in bed. Reportedly patient did not have sleep last night. Her blood sugars normalized in the latest Accu-Chek is 124. Also started to have jerking movements of her upper extremity and the her face. She is given 2 mg of IV Ativan and the jerking movements subsided. So loaded with phenytoin 1 g and maintained with Keppra 500 mg IV twice daily. Her kidney function and hyperkalemia is worsening. Dr. Rubi plan to dialyze her. 09/11/2018-patient is comfortable in the bed sleeping she able to tell me she has mild abdominal pain and cramping the legs. The nurse notified me this morning patient has a problem with swallowing speech consult was requested she is going to be n.p.o. Today's labs are pending based on the labs patient may go for dialysis. aFebrile and no acute events in the last 24 hours. Urinary output is 1800 cc in the last 24 hours. Reason For Visit: ACUTE KIDNEY INJURY,HYPOGLYCEMIA,HYPOTHERMIA Physical Exam Vital Signs: Temp Pulse Resp BP Pulse Ox 99.3 F 99 18 177/81 H 100 09/11/18 07:52 09/11/18 07:52 09/11/18 07:52 09/11/18 07:52 09/11/18 07:52 Intake & Output 09/10/18 09/11/18 09/12/18 06:59 06:59 06:59 Intake Total 1000 2350 Output Total 1125 1820 Balance -125 530 General appearance: PRESENT: no acute distress, obese Head exam: PRESENT: atraumatic Eye exam: PRESENT: PERRLA Ear exam: PRESENT: normal external ear exam Mouth exam: PRESENT: moist, tongue midline Teeth exam: PRESENT: poor dentation Neck exam: ABSENT: carotid bruit, JVD, lymphadenopathy, thyromegaly Respiratory exam: PRESENT: clear to auscultation ahsan. ABSENT: rales, rhonchi, wheezes Cardiovascular exam: PRESENT: RRR. ABSENT: diastolic murmur, rubs, systolic murmur GI/Abdominal exam: PRESENT: normal bowel sounds, soft. ABSENT: distended, guarding, mass, organolmegaly, rebound, tenderness Rectal exam: PRESENT: deferred Gentrourinary exam: PRESENT: indwelling catheter Extremities exam: PRESENT: full ROM. ABSENT: calf tenderness, clubbing, pedal edema Neurological exam: PRESENT: alert, awake, oriented to person, oriented to place, oriented to time, oriented to situation, CN II-XII grossly intact. ABSENT: motor sensory deficit Psychiatric exam: PRESENT: appropriate affect, normal mood. ABSENT: homicidal ideation, suicidal ideation Results Laboratory Results: 09/11/18 08:30 09/10/18 09/11/18 10:07 08:30 WBC 12.4 H RBC 3.57 L Hgb 11.4 L Hct 33.6 L MCV 94 MCH 31.8 MCHC 33.8 RDW 12.8 Plt Count 153 Seg Neutrophils % 83.8 H Lymphocytes % 7.6 L Monocytes % 8.3 Eosinophils % 0.2 Basophils % 0.1 Absolute Neutrophils 10.4 H Absolute Lymphocytes 0.9 Absolute Monocytes 1.0 Absolute Eosinophils 0.0 Absolute Basophils 0.0 Sodium 122.0 L Potassium 5.2 H Chloride 94 L Carbon Dioxide 14 L Anion Gap 14 BUN 66 H Creatinine 6.87 H Est GFR ( Amer) 7 L Est GFR (Non-Af Amer) 6 L Glucose 95 Calcium 7.2 L 09/08/18 15:00 Clean Catch Midstream Urine Culture - Final Escherichia Coli Impressions: Renal Ultrasound 09/08/18 00:00 IMPRESSION: NORMAL RENAL AND BLADDER ULTRASOUND. Chest X-Ray 09/08/18 13:40 IMPRESSION: NO ACUTE FINDINGS. Head CT 09/08/18 13:40 IMPRESSION: OLD BILATERAL LACUNAR BASAL GANGLION INFARCTS. MINIMAL CHRONIC WHITE MATTER CHANGES. OTHERWISE, NORMAL NONCONTRAST CT HEAD. EVIDENCE OF ACUTE STROKE: NO. KUB X-Ray 09/09/18 00:00 IMPRESSION: NO RADIOGRAPHIC EVIDENCE FOR ACUTE ABDOMINAL DISEASE. Assessment and Plan - Diagnosis (1) Hyperkalemia Is this a current diagnosis for this admission?: Yes Plan: Potassium level worsened from 5.4-5.6. Patient is not able to take Kayexalate. Insulin going to be given because of her hypoglycemia. Hopefully during the dialysis which will be corrected. 09/11/2018-serum potassium level is 5.2 yesterday that is prior to dialysis. Waiting for the labs today. Based on the potassium levels and other labs she may may not go to dialysis today. (2) Seizure-like activity Is this a current diagnosis for this admission?: Yes Plan: Her CT head is positive for altered basilar lacunar bilateral ganglial infarcts. She is given a dose of Ativan and seizure activity subsided. Patient loaded with phenytoin and maintained with Keppra. 09/11/2018-no seizure activity was noted in the last 24 to 48 hours. Patient is presently on her Dilantin and Keppra. CT shows positive for old basilar Lacunar infarcts. (3) Acute kidney injury Is this a current diagnosis for this admission?: Yes Plan: Kidney function is worsening. Dr. Rubi plan to dialyze her. 09/11/[id number]-onfd-old female came in with FABIAN kidney function is continued to deteriorate with electrode abnormalities creatinine is 6.87 yesterday he went for dialysis waiting for the repeat labs this morning. Based on the creatinine levels she may may not go to dialysis today. Urinary output is 1800 cc yesterday. (4) Hypertension Qualifiers: Hypertension type: essential hypertension Qualified Code(s): I10 - Essential (primary) hypertension Is this a current diagnosis for this admission?: Yes Plan: Continue her home medication. 09/11/2018-patient blood pressure this morning is 177/81. Presently on hydra lazine 10 mg IV every 4 PRN for systolic blood pressure more than 150. Plan is to continue the present management. (5) Complicated UTI (urinary tract infection) Is this a current diagnosis for this admission?: Yes Plan: Continue Levaquin 09/11/2018-urine culture is positive for E. coli patient is on levofloxacin IV plan is to continue the antibiotic. (6) Hypoglycemia Is this a current diagnosis for this admission?: Yes Plan: 09/11/2018-patient's latest blood sugars are close to 200. She is on D10 at 75 cc/h plan is to decrease the rate to 40 cc/h. She is going to be n.p.o. because of problems swallowing and speech consult was requested. (7) Hyponatremia Is this a current diagnosis for this admission?: Yes Plan: 09/11/2018-patient serum sodium level is 122 yesterday. Receiving normal saline at 125 cc/h she had dialysis yesterday today's labs are pending. Normal saline rate was decreased to 75 cc/h to prevent rapid correction of the hyponatremia. Patient is alert awake communicating well no signs of confusion. (8) Metabolic acidosis Is this a current diagnosis for this admission?: Yes Plan: 09/11/2018-patient serum bicarb is 14 yesterday I think she received bicarb during the dialysis today's labs are pending. (9) Type 2 diabetes mellitus Is this a current diagnosis for this admission?: Yes Plan: Hold glipizide and start her on sliding scale. 09/11/2018-patient has history of type 2 diabetes mellitus she became hypoglycemic during the hospital stay she was on glipizide at home which was on hold she is on D10 today's blood sugar is 220 D10 rate was decreased to 40 cc/h and she is going to be n.p.o. until she was evaluated by the speech therapist. (10) Acute encephalopathy Is this a current diagnosis for this admission?: Yes Plan: Improving 09/11/2018-acute encephalopathy/altered mental status most likely secondary to electrolyte abnormalities. This morning alert and awake communicating well. Waiting for the labs today. - Time Time Spent with patient: 25-34 minutes Medications reviewed and adjusted accordingly: Yes Anticipated discharge: Home
[2018-09-11 09:25] LABS: ALANINE AMINOTRANSFERASE 19 U/L (9-52); ALBUMIN 2.6 g/dL (3.5-5.0); ALKALINE PHOSPHATASE 54 U/L (38-126); ANION GAP 12 (5-19); ASPARTATE AMINO TRANSFERASE 30 U/L (14-36); BILIRUBIN,DIRECT 0.2 mg/dL (0.0-0.4); BILIRUBIN,TOTAL 0.4 mg/dL (0.2-1.3); CARBON DIOXIDE 20 mmol/L (22-30); CHLORIDE 95 mmol/L (98-107); GLUCOSE 254 mg/dL (75-110); POTASSIUM 4.3 mmol/L (3.6-5.0); SODIUM 126.7 mmol/L (137-145); TOTAL PROTEIN 5.1 g/dL (6.3-8.2)
[2018-09-11] MEDS: CHOLECALCIFEROL (D3) 1,000 UNIT (25 MCG) TABLET PO SCH (09:29)
[2018-09-11] MEDS: TIZANIDINE HCL 4 MG TABLET PO SCH ×3 (09:29→22:08)
[2018-09-11] MEDS: DOCUSATE SODIUM 100 MG CAPSULE PO SCH ×2 (09:29→17:05)
[2018-09-11] MEDS: MULTIVIT-STRESS FORMULA/ZINC TABLET PO SCH (09:30)
[2018-09-11 09:44] LABS: BLOOD UREA NITROGEN 40 mg/dL (7-20)
[2018-09-11 09:46] LABS: CALCIUM 6.8 mg/dL (8.4-10.2)
[2018-09-11] MEDS: LEVOFLOXACIN 250 MG/D5W RTU 250 MG/50 ML RTUPB IV SCH (10:25)
[2018-09-11] MEDS: LEVETIRACETAM 500 MG/NACL-ISO 500 MG/100 ML RTUPB IV SCH ×2 (11:45→22:08)
--- NOTE | 2018-09-11 13:51 | RADIOLOGY REPORT (SQ) ---
EXAM DESCRIPTION: KUB/ABDOMEN (SINGLE VIEW) COMPLETED DATE/TIME: 09/11/2018 1:38 pm REASON FOR STUDY: abd pain COMPARISON: None. NUMBER OF VIEWS: One view. TECHNIQUE: Supine radiographic image of the abdomen acquired. LIMITATIONS: None. FINDINGS: BOWEL GAS PATTERN: Normal bowel gas pattern. No dilated loops. CALCIFICATIONS: No suspicious calcifications. SOFT TISSUES: No gross mass or suggestion of organomegaly. HARDWARE: None in the abdomen. BONES: Lumbar degenerative disc changes. Surgical changes. OTHER: No other significant finding. IMPRESSION: NO RADIOGRAPHIC EVIDENCE FOR ACUTE ABDOMINAL DISEASE. TECHNICAL DOCUMENTATION: JOB ID: [id number] [employer]- All Rights Reserved Reading location - IP/workstation name: [email or web address]
[2018-09-11] MEDS ORDERED: MORPHINE SULFATE 10 MG/ML INJ IV ONE (14:00)
--- NOTE | 2018-09-11 15:27 | PDOC PROGRESS REPORT ---
Subjective Progress Note for:: 09/11/18 Reason For Visit: Patient was seen today in the hospital. She had her son and other family members at the bedside. Patient is sleeping but easily arousable. She states she feels gassy but had a bowel movement earlier today. Appetite is still poor. No complaints of any chest pain or shortness of breath. No history of any fever or chills. She is making good amounts of urine as per discussions with her family members as well as treating staff. Labs and medications were re viewed with the patient. She had an uneventful dialysis yesterday.She still continues to get gentle hydration and the D10 has been cut back to 40 cc/h as of blood sugars have been better maintained. Discussions were done with Dr. Cason her treating hospitalist. Physical Exam Vital Signs: Temp Pulse Resp BP Pulse Ox 98.8 F 92 17 160/72 H 97 09/11/18 11:38 09/11/18 11:38 09/11/18 11:38 09/11/18 11:38 09/11/18 11:38 Intake & Output 09/10/18 09/11/18 09/12/18 06:59 06:59 06:59 Intake Total 1000 2350 150 Output Total 1125 1820 Balance -125 530 150 General appearance: PRESENT: no acute distress Respiratory exam: PRESENT: clear to auscultation ahsan, decreased breath sounds. ABSENT: crackles Cardiovascular exam: PRESENT: +S1, +S2 GI/Abdominal exam: PRESENT: normal bowel sounds, soft. ABSENT: organomegaly, tenderness Extremities exam: ABSENT: pedal edema Neurological exam: PRESENT: oriented to person, oriented to place. ABSENT: orie nted to time Psychiatric exam: PRESENT: appropriate affect Skin exam: ABSENT: erythema, mottled, rash Results Laboratory Results: 09/11/18 08:30 09/11/18 08:30 09/11/18 09/11/18 08:30 08:30 WBC 12.4 H RBC 3.57 L Hgb 11.4 L Hct 33.6 L MCV 94 MCH 31.8 MCHC 33.8 RDW 12.8 Plt Count 153 Seg Neutrophils % 83.8 H Lymphocytes % 7.6 L Monocytes % 8.3 Eosinophils % 0.2 Basophils % 0.1 Absolute Neutrophils 10.4 H Absolute Lymphocytes 0.9 Absolute Monocytes 1.0 Absolute Eosinophils 0.0 Absolute Basophils 0.0 Sodium 126.7 L Potassium 4.3 Chloride 95 L Carbon Dioxide 20 L Anion Gap 12 BUN 40 H D Creatinine 4.81 H Est GFR ( Amer) 11 L Est GFR (Non-Af Amer) 9 L Glucose 254 H Calcium 6.8 L* Total Bilirubin 0.4 AST 30 ALT 19 Alkaline Phosphatase 54 Total Protein 5.1 L Albumin 2.6 L 09/08/18 15:00 Blood Blood Culture - Final Micrococcus Species Peptostreptococcus Species Impressions: Renal Ultrasound 09/08/18 00:00 IMPRESSION: NORMAL RENAL AND BLADDER ULTRASOUND. Chest X-Ray 09/08/18 13:40 IMPRESSION: NO ACUTE FINDINGS. Head CT 09/08/18 13:40 IMPRESSION: OLD BILATERAL LACUNAR BASAL GANGLION INFARCTS. MINIMAL CHRONIC WHITE MATTER CHANGES. OTHERWISE, NORMAL NONCONTRAST CT HEAD. EVIDENCE OF ACUTE STROKE: NO. KUB X-Ray 09/11/18 00:00 IMPRESSION: NO RADIOGRAPHIC EVIDENCE FOR ACUTE ABDOMINAL DISEASE. Assessment & Plan - Diagnosis (1) Acute encephalopathy Is this a current diagnosis for this admission?: Yes Plan: Patient does not look uremic but she is sleepy.Could be part of her UTI sepsis as well as some residual deficits from post seizures. Blood sugars have been better maintained now and she is on a low-dose of D10. Continue to monitor. No indications for dialysis today as I do not see any evidence of of uremia. (2) Acute kidney injury Is this a current diagnosis for this admission?: Yes Plan: Nonoliguric. Her renal numbers are better looking today with a creatinine down to 4+ compared to 7+ yesterday. Electrolytes are stable. However sodium is still at 127. No indications for dialysis today. We will continue to monitor on a daily basis. Discussed with the family and with the hospitalist.. (3) Hyperkalemia Is this a current diagnosis for this admission?: Yes Plan: Resolved. (4) Hypertension Qualifiers: Hypertension type: essential hypertension Qualified Code(s): I10 - Essential (primary) hypertension Is this a current diagnosis for this admission?: Yes Plan: Controlled. (5) Hypoglycemia Is this a current diagnosis for this admission?: Yes Plan: Is more stable and the D10 has been cut back. (6) Metabolic acidosis Is this a current diagnosis for this admission?: Yes Plan: Improved post dialysis and continue on replacements for now. We will continue to monitor. (7) Seizure-like activity Is this a current diagnosis for this admission?: Yes Plan: Monitor. (8) Type 2 diabetes mellitus Qualifiers: Diabetes mellitus manager terminal insulin use: with prison use Diabetes mellitus complication status: with hypoglycemia Diabetes mellitus complication detail: with coma Qualified Code(s): E11.641 - Type 2 diabetes mellitus with hypoglycemia with coma; Z79.4 - exterminator helper (current) use of insulin Plan: Close monitoring. (9) Urinary tract infection Qualifiers: Urinary tract infection type: acute pyelonephritis Qualified Code(s): N10 - Acute pyelonephritis Plan: On IV antibiotics. Monitor.
[2018-09-11] MEDS ORDERED: FUROSEMIDE INJ/PF 40 MG/4 ML SDV IV ONE (17:15)
[2018-09-11] MEDS: ONDANSETRON HCL INJ/PF 4 MG/2 ML SDV IV PRN (18:47)
[2018-09-11] MEDS: FAMOTIDINE 20 MG TABLET PO SCH (22:08)
[2018-09-12] MEDS: HEPARIN SOD (PORCINE) 5,000 UNIT/ML 1 ML SYRINGE SUBCUT SCH ×3 (05:39→22:04)
[2018-09-12] MEDS: LEVOTHYROXINE SODIUM 0.075 MG TABLET PO SCH (05:39)
[2018-09-12] MEDS: SODIUM BICARBONATE 650 MG TABLET PO SCH (05:39)
[2018-09-12] MEDS: ACETAMINOPHEN 325 MG TABLET PO PRN (05:47)
[2018-09-12] MEDS: ONDANSETRON HCL INJ/PF 4 MG/2 ML SDV IV PRN ×2 (05:55→14:07)
[2018-09-12 07:01] LABS: ABSOLUTE EOSINOPHILS # (AUTO) 0.1 10^3/uL (0.0-0.6); ABSOLUTE LYMPHOCYTES (AUTO) 0.9 10^3/uL (0.5-4.7); ABSOLUTE MONOCYTES (AUTO) 0.8 10^3/uL (0.1-1.4); BASOPHILS % (AUTO) 0.2 % (0-2); EOSINOPHILS % (AUTO) 0.9 % (0-6); HEMOGLOBIN 10.2 g/dL (12.0-15.5); LYMPHOCYTES % (AUTO) 8.1 % (13-45); MEAN CORPUSCULAR HEMOGLOBIN 32.8 pg (27.0-33.4); MEAN CORPUSCULAR HGB CONC 35.1 g/dL (32.0-36.0); MEAN CORPUSCULAR VOLUME 94 fl (80-97); MONOCYTES % (AUTO) 7.2 % (3-13); PLATELET COUNT 116 10^3/uL (150-450); RED CELL DISTRIBUTION WIDTH 12.6 % (11.5-14.0); SEGMENTED NEUTROPHILS % (AUTO) 83.6 % (42-78); TOTAL CELLS COUNTED % (AUTO) 100 %; WHITE BLOOD COUNT 10.8 10^3/uL (4.0-10.5)
[2018-09-12 07:18] LABS: ALANINE AMINOTRANSFERASE 22 U/L (9-52); ALBUMIN 2.3 g/dL (3.5-5.0); ALKALINE PHOSPHATASE 50 U/L (38-126); ANION GAP 11 (5-19); ASPARTATE AMINO TRANSFERASE 20 U/L (14-36); BILIRUBIN,DIRECT 0.2 mg/dL (0.0-0.4); BILIRUBIN,TOTAL 0.3 mg/dL (0.2-1.3); BLOOD UREA NITROGEN 47 mg/dL (7-20); CARBON DIOXIDE 21 mmol/L (22-30); CHLORIDE 96 mmol/L (98-107); GLUCOSE 159 mg/dL (75-110); POTASSIUM 4.3 mmol/L (3.6-5.0); SODIUM 127.8 mmol/L (137-145); TOTAL PROTEIN 4.7 g/dL (6.3-8.2)
[2018-09-12 07:28] LABS: CALCIUM 6.8 mg/dL (8.4-10.2)
[2018-09-12 07:40] LABS: HEPATITIS A AB IGM Negative (Negative); HEPATITIS B CORE AB IGM Negative (Negative); HEPATITS B SURFACE ANTIGEN Negative (Negative)
--- NOTE | 2018-09-12 08:46 | PDOC PROGRESS REPORT ---
Subjective Progress Note for:: 09/12/18 Subjective:: 68 year old female patient with past medical history of migraine, hypertension, hyperlipidemia, history of congestive heart failure, type 2 diabetes mellitus, hypothyroidism brought with chief complaint of altered mental status. Patient is not able to give meaningful history. History is obtained from the ER attending note and from her daughter who is in the room during my encounter. Daughter at bedside states that she last heard from the patient arou [id number] yesterday evening after giving the patient to slices of [employer]een[employer]. Daughter states that she did not her from the patient this morning so she went to her home to check on the patient and found her sitting in the same chair as the night before. She states the patient was not moving and had a blank stare on her face. Family states that patient type is currently only eats one meal a day. ER attending mentions in her note that patient took too much insulin but the daughter told me patient takes only glipizide. Daughter expressed concern of the patient developing dementia due to the patient is recent forgetfulness. EMS found the patient her blood glucose level was 45. In ER patient also found to be hypothermic with core temperature of 93. Her CT scan of the head is negative for acute stroke but she has old lacunar infarcts. Chest x-ray no acute cardiopulmonary findings. Her blood work is remarkable for acute kidney injury with BUN of 76 and creatinine of 7.69. Her urine analysis positive for nitrite, leukocyte esterase and pyuria. 09/09/2018: Patient seen and examined at bedside. She is awake alert. And has had recurrent hypoglycemia despite she is being given multiple doses of dextrose and she has been also on D10W. Her kidney function is slightly improved latest creatinine is 6.89. Patient is given also 1 mg of glucagon IM. Her daughter will need patient has not moved her bowel for the last 7 days. KUB ordered and is reportedly negative. We will try her with Kayexalate. 09/10/2018: Patient seen propped up in bed. Reportedly patient did not have sleep last night. Her blood sugars normalized in the latest Accu-Chek is 124. Also started to have jerking movements of her upper extremity and the her face. She is given 2 mg of IV Ativan and the jerking movements subsided. So loaded with phenytoin 1 g and maintained with Keppra 500 mg IV twice daily. Her kidney function and hyperkalemia is worsening. Dr. Rubi plan to dialyze her. 09/11/2018-patient is comfortable in the bed sleeping she able to tell me she has mild abdominal pain and cramping the legs. The nurse notified me this morning patient has a problem with swallowing speech consult was requested she is going to be n.p.o. Today's labs are pending based on the labs patient may go for dialysis. aFebrile and no acute events in the last 24 hours. Urinary output is 1800 cc in the last 24 hours. 09/12/2018-patient is comfortable in the bed complaining of cramps in the both upper legs. No other complaints. Alert and awake. Able to take the tablets in crushed form. Afebrile. No acute events in the last 24 hours. Urinary output is good. Sodium improved to 127.8. Potassium within normal limits. Creatinine worsened to 5.49. Sugars are stable plan to discontinue D10 from today. Reason For Visit: ACUTE KIDNEY INJURY,HYPOGLYCEMIA,HYPOTHERMIA Physical Exam Vital Signs: Temp Pulse Resp BP Pulse Ox 98.4 F 80 20 135/57 H 100 09/12/18 03:31 09/12/18 07:00 09/12/18 03:31 09/12/18 03:31 09/12/18 03:31 Intake & Output 09/11/18 09/12/18 09/13/18 06:59 06:59 06:59 Intake Total 2350 1250 Output Total 1820 675 Balance 530 575 Weight 69.6 kg General appearance: PRESENT: no acute distress, cooperative Head exam: PRESENT: atraumatic Eye exam: PRESENT: PERRLA Ear exam: PRESENT: normal external ear exam Mouth exam: PRESENT: moist, tongue midline Neck exam: ABSENT: carotid bruit, JVD, lymphadenopathy, thyromegaly Respiratory exam: PRESENT: clear to auscultation ahsan. ABSENT: rales, rhonchi, wheezes Cardiovascular exam: PRESENT: RRR. ABSENT: diastolic murmur, rubs, systolic murmur GI/Abdominal exam: PRESENT: normal bowel sounds, soft. ABSENT: distended, guarding, mass, organolmegaly, rebound, tenderness Rectal exam: PRESENT: deferred Gentrourinary exam: PRESENT: indwelling catheter Extremities exam: PRESENT: full ROM. ABSENT: calf tenderness, clubbing, pedal edema Neurological exam: PRESENT: alert, awake, oriented to person, oriented to place, oriented to time, oriented to situation, CN II-XII grossly intact. ABSENT: motor sensory deficit Psychiatric exam: PRESENT: appropriate affect, normal mood. ABSENT: homicidal ideation, suicidal ideation Results Laboratory Results: 09/12/18 06:39 09/12/18 06:36 09/11/18 09/11/18 09/12/18 08:30 08:30 06:36 WBC 12.4 H RBC 3.57 L Hgb 11.4 L Hct 33.6 L MCV 94 MCH 31.8 MCHC 33.8 RDW 12.8 Plt Count 153 Seg Neutrophils % 83.8 H Lymphocytes % 7.6 L Monocytes % 8.3 Eosinophils % 0.2 Basophils % 0.1 Absolute Neutrophils 10.4 H Absolute Lymphocytes 0.9 Absolute Monocytes 1.0 Absolute Eosinophils 0.0 Absolute Basophils 0.0 Sodium 126.7 L 127.8 L Potassium 4.3 4.3 Chloride 95 L 96 L Carbon Dioxide 20 L 21 L Anion Gap 12 11 BUN 40 H D 47 H Creatinine 4.81 H 5.49 H Est GFR ( Amer) 11 L 9 L Est GFR (Non-Af Amer) 9 L 8 L Glucose 254 H 159 H Calcium 6.8 L* 6.8 L* Magnesium 1.5 L Total Bilirubin 0.4 0.3 AST 30 20 ALT 19 22 Alkaline Phosphatase 54 50 Total Protein 5.1 L 4.7 L Albumin 2.6 L 2.3 L 09/12/18 06:39 WBC 10.8 H RBC 3.10 L Hgb 10.2 L Hct 29.0 L MCV 94 MCH 32.8 MCHC 35.1 RDW 12.6 Plt Count 116 L Seg Neutrophils % 83.6 H Lymphocytes % 8.1 L Monocytes % 7.2 Eosinophils % 0.9 Basophils % 0.2 Absolute Neutrophils 9.0 H Absolute Lymphocytes 0.9 Absolute Monocytes 0.8 Absolute Eosinophils 0.1 Absolute Basophils 0.0 Sodium Potassium Chloride Carbon Dioxide Anion Gap BUN Creatinine Est GFR ( Amer) Est GFR (Non-Af Amer) Glucose Calcium Magnesium Total Bilirubin AST ALT Alkaline Phosphatase Total Protein Albumin 09/08/18 15:00 Blood Blood Culture - Final Micrococcus Species Peptostreptococcus Species Impressions: Renal Ultrasound 09/08/18 00:00 IMPRESSION: NORMAL RENAL AND BLADDER ULTRASOUND. Chest X-Ray 09/08/18 13:40 IMPRESSION: NO ACUTE FINDINGS. Head CT 09/08/18 13:40 IMPRESSION: OLD BILATERAL LACUNAR BASAL GANGLION INFARCTS. MINIMAL CHRONIC WHITE MATTER CHANGES. OTHERWISE, NORMAL NONCONTRAST CT HEAD. EVIDENCE OF ACUTE STROKE: NO. KUB X-Ray 09/11/18 00:00 IMPRESSION: NO RADIOGRAPHIC EVIDENCE FOR ACUTE ABDOMINAL DISEASE. Assessment and Plan - Diagnosis (1) Hyperkalemia Is this a current diagnosis for this admission?: Yes Plan: Potassium level worsened from 5.4-5.6. Patient is not able to take Kayexalate. Insulin going to be given because of her hypoglycemia. Hopefully during the dialysis which will be corrected. 09/11/2018-serum potassium level is 5.2 yesterday that is prior to dialysis. Waiting for the labs today. Based on the potassium levels and other labs she may may not go to dialysis today. 09/12/2018-serum potassium is 4.3 stable. Hyperkalemia is resolved. (2) Seizure-like activity Is this a current diagnosis for this admission?: Yes Plan: Her CT head is positive for altered basilar lacunar bilateral ganglial infarcts. She is given a dose of Ativan and seizure activity subsided. Patient loaded with phenytoin and maintained with Keppra. 09/11/2018-no seizure activity was noted in the last 24 to 48 hours. Patient is presently on her Dilantin and Keppra. CT shows positive for old basilar Lacunar infarcts. 09/12/2018-patient does not have any seizure activity in the last 48 hours. Presently on IV Dilantin and Keppra. Plan is to discontinue Dilantin from today and continue to keep her on Keppra. in My opinion seizures may be secondary to hypoglycemia. (3) Acute kidney injury Is this a current diagnosis for this admission?: Yes Plan: Kidney function is worsening. Dr. Rubi plan to dialyze her. 09/11/[id number]-xohg-old female came in with FABIAN kidney function is continued to deteriorate with electrode abnormalities creatinine is 6.87 yesterday he went for dialysis waiting for the repeat labs this morning. Based on the creatinine levels she may may not go to dialysis today. Urinary output is 1800 cc yesterday. 09/12/2018-patient came in with FABIAN and she had a dialysis day before and the clots are improved from yesterday sodium is 127.8 potassium is 4.3 and creatinine was 5.49 nephrology is following the patient urinary output is good. (4) Hypertension Qualifiers: Hypertension type: essential hypertension Qualified Code(s): I10 - Essential (primary) hypertension Is this a current diagnosis for this admission?: Yes Plan: Continue her home medication. 09/11/2018-patient blood pressure this morning is 177/81. Presently on hydralazine 10 mg IV every 4 PRN for systolic blood pressure more than 150. Plan is to continue the present management. 09/12/2018-blood pressure today is 135/57 stable. She is off the normal saline from yesterday. Only fluids she is on no obvious D10 which is going to be discontinued today. (5) Complicated UTI (urinary tract infection) Is this a current diagnosis for this admission?: Yes Plan: Continue Levaquin 09/11/2018-urine culture is positive for E. coli patient is on levofloxacin IV plan is to continue the antibiotic. 09/12/2018-urine culture was positive treated with IV levo floxacillin. Plan is to continue the antibiotic for now. (6) Hypoglycemia Is this a current diagnosis for this admission?: Yes Plan: 09/11/2018-patient's latest blood sugars are close to 200. She is on D10 at 75 cc/h plan is to decrease the rate to 40 cc/h. She is going to be n.p.o. because of problems swallowing and speech consult was requested. 09/12/2018-latest blood sugar is 159 stable she is on D10 at 40 cc/h. Plan is to discontinue D10 from today. (7) Hyponatremia Is this a current diagnosis for this admission?: Yes Plan: 09/11/2018-patient serum sodium level is 122 yesterday. Receiving normal saline at 125 cc/h she had dialysis yesterday today's labs are pending. Normal saline rate was decreased to 75 cc/h to prevent rapid correction of the hyponatremia. Patient is alert awake communicating well no signs of confusion. 09/12/2018-serum sodium is 127.8 still hyponatremic most likely secondary to acute renal failure. Patient more alert and more awake. Normal saline was discontinued yesterday. To repeat the labs tomorrow morning. (8) Metabolic acidosis Is this a current diagnosis for this admission?: Yes Plan: 09/11/2018-patient serum bicarb is 14 yesterday I think she received bicarb during the dialysis today's labs are pending. 09/12/2018-serum bicarb is 21 and metabolic acidosis resolved. (9) Type 2 diabetes mellitus Is this a current diagnosis for this admission?: Yes Plan: Hold glipizide and start her on sliding scale. 09/11/2018-patient has history of type 2 diabetes mellitus she became hypoglycemic during the hospital stay she was on glipizide at home which was on hold she is on D10 today's blood sugar is 220 D10 rate was decreased to 40 cc/h and she is going to be n.p.o. until she was evaluated by the speech therapist. 2018-patient with history of type 2 diabetes mellitus admitted with hypo glycemia most likely secondary to sulfonylurea. She still on D10 at 40 cc/h. Plan is to discontinue D10 from today. (10) Acute encephalopathy Is this a current diagnosis for this admission?: Yes Plan: Improving 09/11/2018-acute encephalopathy/altered mental status most likely secondary to electrolyte abnormalities. This morning alert and awake communicating well. Waiting for the labs today. 09/12/2018-acute and coagulopathy most likely secondary to FABIAN, electrolyte abnormalities and urine tract infection improving. - Time Time Spent with patient: 25-34 minutes Medications reviewed and adjusted accordingly: Yes Anticipated discharge: SNF
[2018-09-12] MEDS: DOCUSATE SODIUM 100 MG CAPSULE PO SCH ×2 (09:56→17:18)
[2018-09-12] MEDS: ALBUMIN HUMAN 12.5 GM/50 ML RTUINJ IV SCH ×3 (10:10→12:02)
[2018-09-12] MEDS: LEVETIRACETAM ORAL SOLN 500 MG/5 ML UDCUP PO SCH ×2 (10:10→22:04)
[2018-09-12] MEDS: MULTIVIT-STRESS FORMULA/ZINC TABLET PO SCH (10:11)
[2018-09-12] MEDS: CHOLECALCIFEROL (D3) 1,000 UNIT (25 MCG) TABLET PO SCH (10:11)
[2018-09-12] MEDS: LEVOFLOXACIN 250 MG/D5W RTU 250 MG/50 ML RTUPB IV SCH (10:11)
[2018-09-12] MEDS: TIZANIDINE HCL 4 MG TABLET PO SCH ×2 (10:14→22:04)
[2018-09-12] MEDS ORDERED: MAGNESIUM SULFATE/D5W 1 GM/100 ML RTUPB IV ONE ×2 (12:00→19:00)
[2018-09-12] MEDS ORDERED: CALCIUM GLUCONATE 1000 MG/10 ML INJ IV ONE ×2 (12:30→19:00)
--- NOTE | 2018-09-12 13:00 | RADIOLOGY REPORT (SQ) ---
EXAM DESCRIPTION: CHEST SINGLE VIEW COMPLETED DATE/TIME: 09/12/2018 12:50 pm REASON FOR STUDY: fluid volume overload COMPARISON: 09/08/2018 EXAM PARAMETERS: NUMBER OF VIEWS: One view. TECHNIQUE: Single frontal radiographic view of the chest acquired. RADIATION DOSE: NA LIMITATIONS: None. FINDINGS: LUNGS AND PLEURA: There is marked retrocardiac opacification on the left. Perihilar opaci fication is present. There is slightly increased opacification in the right upper lobe. MEDIASTINUM AND HILAR STRUCTURES: No masses. Contour normal. HEART AND VASCULAR STRUCTURES: Heart normal in size. Normal vasculature. BONES: No acute findings. HARDWARE: None in the chest. OTHER: No other significant finding. IMPRESSION: 1. Airspace disease in the left lower lobe: Pneumonia versus atelectasis. 2. Perihilar opacification. Cannot exclude pulmonary edema. 3. Cannot exclude limited right upper lobe pneumonia. TECHNICAL DOCUMENTATION: JOB ID: [id number] [employer]- All Rights Reserved Reading location - IP/workstation name: [email or web address]
[2018-09-12] MEDS: CYCLOBENZAPRINE HCL 10 MG TABLET PO SCH ×2 (13:50→22:04)
[2018-09-12 14:18] LABS: HEPATITIS B CORE AB TOT Negative (Negative); HEPATITIS B SURFACE AB QUANT <3.1 mIU/mL (Immunity>9); HEPATITIS C VIRUS ANTIBODY <0.1 s/co ratio (0.0-0.9)
[2018-09-12] MEDS: METOCLOPRAMIDE HCL INJ/PF 10 MG/2 ML SDV IV PRN (17:29)
[2018-09-12] MEDS: FAMOTIDINE 20 MG TABLET PO SCH (22:04)
[2018-09-12] MEDS: MAG HYDROX/AL HYDROX/SIMETH SUSP 30 ML UDCUP PO PRN (22:04)
[2018-09-13] MEDS: HEPARIN SOD (PORCINE) 5,000 UNIT/ML 1 ML SYRINGE SUBCUT SCH ×3 (05:40→21:48)
[2018-09-13] MEDS: LEVOTHYROXINE SODIUM 0.075 MG TABLET PO SCH (05:46)
[2018-09-13] MEDS: CYCLOBENZAPRINE HCL 10 MG TABLET PO SCH ×3 (05:46→21:53)
[2018-09-13 06:37] LABS: ABSOLUTE EOSINOPHILS # (AUTO) 0.2 10^3/uL (0.0-0.6); ABSOLUTE LYMPHOCYTES (AUTO) 1.2 10^3/uL (0.5-4.7); ABSOLUTE MONOCYTES (AUTO) 0.8 10^3/uL (0.1-1.4); ABSOLUTE NEUT (AUTO) 10.9 10^3/uL (1.7-8.2); BASOPHILS % (AUTO) 0.2 % (0-2); EOSINOPHILS % (AUTO) 1.8 % (0-6); HEMATOCRIT 26.8 % (36.0-47.0); HEMOGLOBIN 9.2 g/dL (12.0-15.5); LYMPHOCYTES % (AUTO) 9.1 % (13-45); MEAN CORPUSCULAR HEMOGLOBIN 32.4 pg (27.0-33.4); MEAN CORPUSCULAR HGB CONC 34.3 g/dL (32.0-36.0); MEAN CORPUSCULAR VOLUME 95 fl (80-97); MONOCYTES % (AUTO) 6.1 % (3-13); RED BLOOD COUNT 2.84 10^6/uL (3.72-5.28); RED CELL DISTRIBUTION WIDTH 12.6 % (11.5-14.0); SEGMENTED NEUTROPHILS % (AUTO) 82.8 % (42-78); TOTAL CELLS COUNTED % (AUTO) 100 %; WHITE BLOOD COUNT 13.2 10^3/uL (4.0-10.5)
[2018-09-13 06:58] LABS: ALANINE AMINOTRANSFERASE 18 U/L (9-52); ALBUMIN 2.6 g/dL (3.5-5.0); ALKALINE PHOSPHATASE 47 U/L (38-126); ANION GAP 14 (5-19); ASPARTATE AMINO TRANSFERASE 19 U/L (14-36); BILIRUBIN,DIRECT 0.3 mg/dL (0.0-0.4); BILIRUBIN,TOTAL 0.4 mg/dL (0.2-1.3); BLOOD UREA NITROGEN 52 mg/dL (7-20); CALCIUM 7.8 mg/dL (8.4-10.2); CARBON DIOXIDE 20 mmol/L (22-30); CHLORIDE 97 mmol/L (98-107); GLUCOSE 95 mg/dL (75-110); POTASSIUM 4.3 mmol/L (3.6-5.0); SODIUM 130.8 mmol/L (137-145)
[2018-09-13 07:18] LABS: PLATELET COUNT 120 10^3/uL (150-450)
--- NOTE | 2018-09-13 10:09 | PDOC PROGRESS REPORT ---
Subjective Progress Note for:: 09/13/18 Subjective:: 68 year old female patient with past medical history of migraine, hypertension, hyperlipidemia, history of congestive heart failure, type 2 diabetes mellitus, hypothyroidism brought with chief complaint of altered mental status. Patient is not able to give meaningful history. History is obtained from the ER attending note and from her daughter who is in the room during my encounter. Daughter at bedside states that she last heard from the patient arou [id number] yesterday evening after giving the patient to slices of [employer]. Daughter states that she did not her from the patient this morning so she went to her home to check on the patient and found her sitting in the same chair as the night before. She states the patient was not moving and had a blank stare on her face. Family states that patient type is currently only eats one meal a day. ER attending mentions in her note that patient took too much insulin but the daughter told me patient takes only glipizide. Daughter expressed concern of the patient developing dementia due to the patient is recent forgetfulness. EMS found the patient her blood glucose level was 45. In ER patient also found to be hypothermic with core temperature of 93. Her CT scan of the head is negative for acute stroke but she has old lacunar infarcts. Chest x-ray no acute cardiopulmonary findings. Her blood work is remarkable for acute kidney injury with BUN of 76 and creatinine of 7.69. Her urine analysis positive for nitrite, leukocyte esterase and pyuria. 09/09/2018: Patient seen and examined at bedside. She is awake alert. And has had recurrent hypoglycemia despite she is being given multiple doses of dextrose and she has been also on D10W. Her kidney function is slightly improved latest creatinine is 6.89. Patient is given also 1 mg of glucagon IM. Her daughter will need patient has not moved her bowel for the last 7 days. KUB ordered and is reportedly negative. We will try her with Kayexalate. 09/10/2018: Patient seen propped up in bed. Reportedly patient did not have sleep last night. Her blood sugars normalized in the latest Accu-Chek is 124. Also started to have jerking movements of her upper extremity and the her face. She is given 2 mg of IV Ativan and the jerking movements subsided. So loaded with phenytoin 1 g and maintained with Keppra 500 mg IV twice daily. Her kidney function and hyperkalemia is worsening. Dr. Rubi plan to dialyze her. 09/11/2018-patient is comfortable in the bed sleeping she able to tell me she has mild abdominal pain and cramping the legs. The nurse notified me this morning patient has a problem with swallowing speech consult was requested she is going to be n.p.o. Today's labs are pending based on the labs patient may go for dialysis. aFebrile and no acute events in the last 24 hours. Urinary output is 1800 cc in the last 24 hours. 09/12/2018-patient is comfortable in the bed complaining of cramps in the both upper legs. No other complaints. Alert and awake. Able to take the tablets in crushed form. Afebrile. No acute events in the last 24 hours. Urinary output is good. Sodium improved to 127.8. Potassium within normal limits. Creatinine worsened to 5.49. Sugars are stable plan to discontinue D10 from today. 09/13/2018-patient was seen in the dialysis unit. Tolerating the dialysis very well. No acute events in the last 24 hours. Febrile. Sodium improved to 130.8. Reason For Visit: ACUTE KIDNEY INJURY,HYPOGLYCEMIA,HYPOTHERMIA Physical Exam Vital Signs: Temp Pulse Resp BP Pulse Ox 98.9 F 78 17 164/68 H 100 09/13/18 03:25 09/13/18 07:00 09/13/18 03:25 09/13/18 03:25 09/13/18 03:25 Intake & Output 09/12/18 09/13/18 09/14/18 06:59 06:59 06:59 Intake Total 1250 543 Output Total 675 1125 Balance 575 -582 Weight 69.6 kg General appearance: PRESENT: no acute distress, cooperative, well-developed Head exam: PRESENT: atraumatic Eye exam: PRESENT: PERRLA Mouth exam: PRESENT: moist, tongue midline Teeth exam: PRESENT: poor dentation Neck exam: ABSENT: carotid bruit, JVD, lymphadenopathy, thyromegaly Respiratory exam: PRESENT: decreased breath sounds Cardiovascular exam: PRESENT: RRR. ABSENT: diastolic murmur, rubs, systolic murmur GI/Abdominal exam: PRESENT: normal bowel sounds, soft. ABSENT: distended, guarding, mass, organolmegaly, rebound, tenderness Rectal exam: PRESENT: deferred Extremities exam: PRESENT: full ROM. ABSENT: calf tenderness, clubbing, pedal edema Neurological exam: PRESENT: alert, awake, oriented to person, oriented to place, oriented to time, oriented to situation, CN II-XII grossly intact. ABSENT: motor sensory deficit Psychiatric exam: PRESENT: appropriate affect, normal mood. ABSENT: homicidal ideation, suicidal ideation Results Laboratory Results: 09/13/18 06:17 09/13/18 06:17 09/13/18 09/13/18 06:17 06:17 WBC 13.2 H RBC 2.84 L Hgb 9.2 L Hct 26.8 L MCV 95 MCH 32.4 MCHC 34.3 RDW 12.6 Plt Count 120 L Seg Neutrophils % 82.8 H Lymphocytes % 9.1 L Monocytes % 6.1 Eosinophils % 1.8 Basophils % 0.2 Absolute Neutrophils 10.9 H Absolute Lymphocytes 1.2 Absolute Monocytes 0.8 Absolute Eosinophils 0.2 Absolute Basophils 0.0 Sodium 130.8 L Potassium 4.3 Chloride 97 L Carbon Dioxide 20 L Anion Gap 14 BUN 52 H Creatinine 6.09 H Est GFR ( Amer) 8 L Est GFR (Non-Af Amer) 7 L Glucose 95 Calcium 7.8 L Magnesium 2.2 Total Bilirubin 0.4 AST 19 ALT 18 Alkaline Phosphatase 47 Total Protein 5.0 L Albumin 2.6 L Impressions: Renal Ultrasound 09/08/18 00:00 IMPRESSION: NORMAL RENAL AND BLADDER ULTRASOUND. Head CT 09/08/18 13:40 IMPRESSION: OLD BILATERAL LACUNAR BASAL GANGLION INFARCTS. MINIMAL CHRONIC WHITE MATTER CHANGES. OTHERWISE, NORMAL NONCONTRAST CT HEAD. EVIDENCE OF ACUTE STROKE: NO. KUB X-Ray 09/11/18 00:00 IMPRESSION: NO RADIOGRAPHIC EVIDENCE FOR ACUTE ABDOMINAL DISEASE. Chest X-Ray 09/12/18 00:00 IMPRESSION: 1. Airspace disease in the left lower lobe: Pneumonia versus atelectasis. 2. Perihilar opacification. Cannot exclude pulmonary edema. 3. Cannot exclude limited right upper lobe pneumonia. Assessment and Plan - Diagnosis (1) Hyperkalemia Is this a current diagnosis for this admission?: Yes Plan: Potassium level worsened from 5.4-5.6. Patient is not able to take Kayexalate. Insulin going to be given because of her hypoglycemia. Hopefully during the dialysis which will be corrected. 09/11/2018-serum potassium level is 5.2 yesterday that is prior to dialysis. Waiting for the labs today. Based on the potassium levels and other labs she may may not go to dialysis today. 09/12/2018-serum potassium is 4.3 stable. Hyperkalemia is resolved. 09/13/2018-serum potassium today is 4.3 hyperkalemia due to kidney injury resolved. (2) Seizure-like activity Is this a current diagnosis for this admission?: Yes Plan: Her CT head is positive for altered basilar lacunar bilateral ganglial infarcts. She is given a dose of Ativan and seizure activity subsided. Patient loaded with phenytoin and maintained with Keppra. 09/11/2018-no seizure activity was noted in the last 24 to 48 hours. Patient is presently on her Dilantin and Keppra. CT shows positive for old basilar Lacunar infarcts. 09/12/2018-patient does not have any seizure activity in the last 48 hours. Presently on IV Dilantin and Keppra. Plan is to discontinue Dilantin from today and continue to keep her on Keppra. in My opinion seizures may be secondary to hypoglycemia. 09/13/2018-patient noticed to have seizure activity few days ago she was started on her Dilantin and Keppra Dilantin was discontinued no seizure activity for more than 7 to 2 hours as far as I know. Plan is we may stop Keppra from today. In my opinion hypoglycemia causing the seizure activity. And hypoglycemia is resolved now. (3) Acute kidney injury Is this a current diagnosis for this admission?: Yes Plan: Kidney function is worsening. Dr. Rubi plan to dialyze her. 09/11/[id number]-vtuw-old female came in with FABIAN kidney function is continued to deteriorate with electrode abnormalities creatinine is 6.87 yesterday he went for dialysis waiting for the repeat labs this morning. Based on the creatinine levels she may may not go to dialysis today. Urinary output is 1800 cc yesterday. 09/12/2018-patient came in with FABIAN and she had a dialysis day before and the clots are improved from yesterday sodium is 127.8 potassium is 4.3 and creatinine was 5.49 nephrology is following the patient urinary output is good. 09/13/2018-patient is admitted with acute kidney injury requiring dialysis today she is getting dialysis this is her second session of dialysis. It is 6.09. plan Is to repeat the labs tomorrow. Urinary output is good. (4) Hypertension Qualifiers: Hypertension type: essential hypertension Qualified Code(s): I10 - Essential (primary) hypertension Is this a current diagnosis for this admission?: Yes Plan: Continue her home medication. 09/11/2018-patient blood pressure this morning is 177/81. Presently on hydralazine 10 mg IV every 4 PRN for systolic blood pressure more than 150. Plan is to continue the present management. 09/12/2018-blood pressure today is 135/57 stable. She is off the normal saline from yesterday. Only fluids she is on no obvious D10 which is going to be discontinued today. 09/13/2018-patient blood pressure today is 164/68. Hopefully after the dialysis blood pressures are going to improve. Patient is off the IV fluids. (5) Complicated UTI (urinary tract infection) Is this a current diagnosis for this admission?: Yes (6) Hypoglycemia Is this a current diagnosis for this admission?: Yes Plan: 09/11/2018-patient's latest blood sugars are close to 200. She is on D10 at 75 cc/h plan is to decrease the rate to 40 cc/h. She is going to be n.p.o. because of problems swallowing and speech consult was requested. 09/12/2018-latest blood sugar is 159 stable she is on D10 at 40 cc/h. Plan is to discontinue D10 from today. 09/13/2018-latest blood sugar is 85 hypoglycemia is resolved. D10 was discontinued from yesterday. Patient able to tolerate the nectar thickened diet. (7) Hyponatremia Is this a current diagnosis for this admission?: Yes Plan: 09/11/2018-patient serum sodium level is 122 yesterday. Receiving normal saline at 125 cc/h she had dialysis yesterday today's labs are pending. Normal saline rate was decreased to 75 cc/h to prevent rapid correction of the hyponatremia. Patient is alert awake communicating well no signs of confusion. 09/12/2018-serum sodium is 127.8 still hyponatremic most likely secondary to acute renal failure. Patient more alert and more awake. Normal saline was discontinued yesterday. To repeat the labs tomorrow morning. 09/13/2018-serum sodium is 130.8. Most likely secondary to acute renal failure. Urinary output is good. Off the IV fluids. Mental status is significantly improved. (8) Metabolic acidosis Is this a current diagnosis for this admission?: Yes Plan: 09/11/2018-patient serum bicarb is 14 yesterday I think she received bicarb during the dialysis today's labs are pending. 09/12/2018-serum bicarb is 21 and metabolic acidosis resolved. 09/13/2018-serum bicarb is 20. Patient was admitted with severe metabolic acidos is requiring sodium bicarb now the bicarb levels are stable around 20. pt is receiving p.o. sodium bicarb now. (9) Type 2 diabetes mellitus Is this a current diagnosis for this admission?: Yes Plan: Hold glipizide and start her on sliding scale. 09/11/2018-patient has history of type 2 diabetes mellitus she became hypoglycemic during the hospital stay she was on glipizide at home which was on hold she is on D10 today's blood sugar is 220 D10 rate was decreased to 40 cc/h and she is going to be n.p.o. until she was evaluated by the speech therapist. 09/12/2018-patient with history of type 2 diabetes mellitus admitted with h ypoglycemia most likely secondary to sulfonylurea. She still on D10 at 40 cc/h. Plan is to discontinue D10 from today. 09/13/2018-patient history of type 2 diabetes mellitus. Became hypoglycemic due to sulfonylureas. Latest blood sugar is 85. (10) Acute encephalopathy Is this a current diagnosis for this admission?: Yes Plan: Improving 09/11/2018-acute encephalopathy/altered mental status most likely secondary to electrolyte abnormalities. This morning alert and awake communicating well. Waiting for the labs today. 09/12/2018-acute and coagulopathy most likely secondary to FABIAN, electrolyte abnormalities and urine tract infection improving. 09/13/2018-altered mental status most likely secondary to hypoglycemia is res olved. - Time Time Spent with patient: 25-34 minutes Medications reviewed and adjusted accordingly: Yes Anticipated discharge: Home
--- NOTE | 2018-09-13 10:47 | PDOC PROGRESS REPORT ---
Subjective Progress Note for:: 09/13/18 Reason For Visit: Patient seen on dialysis today. She is undergoing dialysis without any issues. She still looks very tired even though she thinks she is feeling somewhat better. She states that her appetite is a little bit better but still continues to have intermittent leg cramps. No complaints of any chest pains or shortness of breath. Labs and medications were reviewed that shows slight deterioration of renal numbers even though electrolytes and acidosis is relatively stable. Urine output has been better as compared to yesterday which is encouraging. Dialysis orders were reviewed with the treating dialysis nurse. Physical Exam Vital Signs: Temp Pulse Resp BP Pulse Ox 98.9 F 78 17 164/68 H 100 09/13/18 03:25 09/13/18 07:00 09/13/18 03:25 09/13/18 03:25 09/13/18 03:25 Intake & Output 09/12/18 09/13/18 09/14/18 06:59 06:59 06:59 Intake Total 1250 543 Output Total 675 1125 Balance 575 -582 Weight 69.6 kg General appearance: PRESENT: no acute distress Respiratory exam: PRESENT: clear to auscultation ahsan, crackles Cardiovascular exam: PRESENT: +S1, +S2 GI/Abdominal exam: PRESENT: distended, firm, normal bowel sounds, tenderness - Generalized.. ABSENT: ascites, organomegaly, rigid Extremities exam: PRESENT: pedal edema Neurological exam: PRESENT: alert, awake, oriented to person, oriented to place Psychiatric exam: PRESENT: depressed - ? Skin exam: ABSENT: cyanosis, erythema, mottled, rash Results Laboratory Results: 09/13/18 06:17 09/13/18 06:17 09/13/18 09/13/18 06:17 06:17 WBC 13.2 H RBC 2.84 L Hgb 9.2 L Hct 26.8 L MCV 95 MCH 32.4 MCHC 34.3 RDW 12.6 Plt Count 120 L Seg Neutrophils % 82.8 H Lymphocytes % 9.1 L Monocytes % 6.1 Eosinophils % 1.8 Basophils % 0.2 Absolute Neutrophils 10.9 H Absolute Lymphocytes 1.2 Absolute Monocytes 0.8 Absolute Eosinophils 0.2 Absolute Basophils 0.0 Sodium 130.8 L Potassium 4.3 Chloride 97 L Carbon Dioxide 20 L Anion Gap 14 BUN 52 H Creatinine 6.09 H Est GFR ( Amer) 8 L Est GFR (Non-Af Amer) 7 L Glucose 95 Calcium 7.8 L Magnesium 2.2 Total Bilirubin 0.4 AST 19 ALT 18 Alkaline Phosphatase 47 Total Protein 5.0 L Albumin 2.6 L Impressions: Renal Ultrasound 09/08/18 00:00 IMPRESSION: NORMAL RENAL AND BLADDER ULTRASOUND. Head CT 09/08/18 13:40 IMPRESSION: OLD BILATERAL LACUNAR BASAL GANGLION INFARCTS. MINIMAL CHRONIC WHITE MATTER CHANGES. OTHERWISE, NORMAL NONCONTRAST CT HEAD. EVIDENCE OF ACUTE STROKE: NO. KUB X-Ray 09/11/18 00:00 IMPRESSION: NO RADIOGRAPHIC EVIDENCE FOR ACUTE ABDOMINAL DISEASE. Chest X-Ray 09/12/18 00:00 IMPRESSION: 1. Airspace disease in the left lower lobe: Pneumonia versus atelectasis. 2. Perihilar opacification. Cannot exclude pulmonary edema. 3. Cannot exclude limited right upper lobe pneumonia. Assessment & Plan - Diagnosis (1) Acute encephalopathy Is this a current diagnosis for this admission?: Yes Plan: She is definitely improving even though it is very slow and gradual. If she had some anoxic encephalopathy during initial hypoglycemic events/seizures in the house.Continue present lines of management. (2) Acute kidney injury Is this a current diagnosis for this admission?: Yes Plan: Currently nonoliguric. Her renal numbers have continued to deteriorate. Electrolites are stable with improved acidosis. Therefore she is undergoing dialysis today. Dialysis is being supervised to ensure safe and smooth proced ure.Plan to remove no fluid today. Dialysis orders were reviewed with the treating dialysis nurse. (3) Hyperkalemia Is this a current diagnosis for this admission?: Yes Plan: Resolved. (4) Hypertension Qualifiers: Hypertension type: essential hypertension Qualified Code(s): I10 - Essential (primary) hypertension Is this a current diagnosis for this admission?: Yes Plan: Controlled. (5) Hypoglycemia Is this a current diagnosis for this admission?: Yes Plan: Resolved and off D10 now. (6) Metabolic acidosis Is this a current diagnosis for this admission?: Yes Plan: Almost resolved. DC bicarb replacements. (7) Seizure-like activity Is this a current diagnosis for this admission?: Yes Plan: Monitor.Most likely from hypoglycemia and uremia. However note patient is on antiseizure medications. 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 (9) Urinary tract infection Qualifiers: Urinary tract infection type: acute pyelonephritis Qualified Code(s): N10 - Acute pyelonephritis Plan: On IV antibiotics. Monitor. (10) Hypocalcemia Is this a current diagnosis for this admission?: Yes Plan: Improved. Continue to monitor.
[2018-09-13] MEDS: CHOLECALCIFEROL (D3) 1,000 UNIT (25 MCG) TABLET PO SCH (11:33)
[2018-09-13] MEDS: TIZANIDINE HCL 4 MG TABLET PO SCH (11:33)
[2018-09-13] MEDS: MULTIVIT-STRESS FORMULA/ZINC TABLET PO SCH (11:33)
[2018-09-13] MEDS: DOCUSATE SODIUM 100 MG CAPSULE PO SCH ×2 (11:33→17:38)
[2018-09-13] MEDS: LEVOFLOXACIN 250 MG/D5W RTU 250 MG/50 ML RTUPB IV SCH (11:33)
[2018-09-13] MEDS: LEVETIRACETAM ORAL SOLN 500 MG/5 ML UDCUP PO SCH ×2 (11:33→21:54)
[2018-09-13] MEDS: ONDANSETRON HCL INJ/PF 4 MG/2 ML SDV IV PRN (12:07)
[2018-09-13] MEDS: METOCLOPRAMIDE HCL INJ/PF 10 MG/2 ML SDV IV PRN (19:33)
[2018-09-13] MEDS: ACETAMINOPHEN 325 MG TABLET PO PRN (19:36)
[2018-09-13] MEDS: MAG HYDROX/AL HYDROX/SIMETH SUSP 30 ML UDCUP PO PRN (19:45)
[2018-09-13] MEDS: FAMOTIDINE 20 MG TABLET PO SCH (21:53)
[2018-09-14 04:42] LABS: ABSOLUTE EOSINOPHILS # (AUTO) 0.3 10^3/uL (0.0-0.6); ABSOLUTE MONOCYTES (AUTO) 0.8 10^3/uL (0.1-1.4); ABSOLUTE NEUT (AUTO) 5.9 10^3/uL (1.7-8.2); BASOPHILS % (AUTO) 0.2 % (0-2); EOSINOPHILS % (AUTO) 3.9 % (0-6); HEMATOCRIT 25.1 % (36.0-47.0); HEMOGLOBIN 8.7 g/dL (12.0-15.5); LYMPHOCYTES % (AUTO) 12.5 % (13-45); MEAN CORPUSCULAR HEMOGLOBIN 32.7 pg (27.0-33.4); MEAN CORPUSCULAR HGB CONC 34.8 g/dL (32.0-36.0); MEAN CORPUSCULAR VOLUME 94 fl (80-97); MONOCYTES % (AUTO) 9.7 % (3-13); PLATELET COUNT 124 10^3/uL (150-450); RED BLOOD COUNT 2.67 10^6/uL (3.72-5.28); RED CELL DISTRIBUTION WIDTH 12.7 % (11.5-14.0); SEGMENTED NEUTROPHILS % (AUTO) 73.7 % (42-78); TOTAL CELLS COUNTED % (AUTO) 100 %; WHITE BLOOD COUNT 8.1 10^3/uL (4.0-10.5)
[2018-09-14 05:03] LABS: ALANINE AMINOTRANSFERASE 21 U/L (9-52); ALBUMIN 2.5 g/dL (3.5-5.0); ALKALINE PHOSPHATASE 56 U/L (38-126); ANION GAP 12 (5-19); ASPARTATE AMINO TRANSFERASE 19 U/L (14-36); BILIRUBIN,DIRECT 0.3 mg/dL (0.0-0.4); BILIRUBIN,TOTAL 0.4 mg/dL (0.2-1.3); BLOOD UREA NITROGEN 39 mg/dL (7-20); CARBON DIOXIDE 24 mmol/L (22-30); CHLORIDE 99 mmol/L (98-107); GLUCOSE 83 mg/dL (75-110); POTASSIUM 3.8 mmol/L (3.6-5.0); SODIUM 134.9 mmol/L (137-145); TOTAL PROTEIN 4.8 g/dL (6.3-8.2)
[2018-09-14] MEDS: TIZANIDINE HCL 4 MG TABLET PO SCH ×3 (05:57→21:06)
[2018-09-14] MEDS: HEPARIN SOD (PORCINE) 5,000 UNIT/ML 1 ML SYRINGE SUBCUT SCH ×3 (06:02→21:07)
[2018-09-14] MEDS: CYCLOBENZAPRINE HCL 10 MG TABLET PO SCH ×3 (06:05→21:06)
[2018-09-14] MEDS: LEVOTHYROXINE SODIUM 0.075 MG TABLET PO SCH (06:05)
[2018-09-14] MEDS: MAG HYDROX/AL HYDROX/SIMETH SUSP 30 ML UDCUP PO PRN (06:07)
[2018-09-14] MEDS: ACETAMINOPHEN 325 MG TABLET PO PRN ×2 (06:07→21:06)
--- NOTE | 2018-09-14 08:43 | PDOC PROGRESS REPORT ---
Subjective Progress Note for:: 09/14/18 Subjective:: 68 year old female patient with past medical history of migraine, hypertension, hyperlipidemia, history of congestive heart failure, type 2 diabetes mellitus, hypothyroidism brought with chief complaint of altered mental status. Patient is not able to give meaningful history. History is obtained from the ER attending note and from her daughter who is in the room during my encounter. Daughter at bedside states that she last heard from the patient arou [id number] yesterday evening after giving the patient to slices of [place]. Daughter states that she did not her from the patient this morning so she went to her home to check on the patient and found her sitting in the same chair as the night before. She states the patient was not moving and had a blank stare on her face. Family states that patient type is currently only eats one meal a day. ER attending mentions in her note that patient took too much insulin but the daughter told me patient takes only glipizide. Daughter expressed concern of the patient developing dementia due to the patient is recent forgetfulness. EMS found the patient her blood glucose level was 45. In ER patient also found to be hypothermic with core temperature of 93. Her CT scan of the head is negative for acute stroke but she has old lacunar infarcts. Chest x-ray no acute cardiopulmonary findings. Her blood work is remarkable for acute kidney injury with BUN of 76 and creatinine of 7.69. Her urine analysis positive for nitrite, leukocyte esterase and pyuria. 09/09/2018: Patient seen and examined at bedside. She is awake alert. And has had recurrent hypoglycemia despite she is being given multiple doses of dextrose and she has been also on D10W. Her kidney function is slightly improved latest creatinine is 6.89. Patient is given also 1 mg of glucagon IM. Her daughter will need patient has not moved her bowel for the last 7 days. KUB ordered and is reportedly negative. We will try her with Kayexalate. 09/10/2018: Patient seen propped up in bed. Reportedly patient did not have sleep last night. Her blood sugars normalized in the latest Accu-Chek is 124. Also started to have jerking movements of her upper extremity and the her face. She is given 2 mg of IV Ativan and the jerking movements subsided. So loaded with phenytoin 1 g and maintained with Keppra 500 mg IV twice daily. Her kidney function and hyperkalemia is worsening. Dr. Rubi plan to dialyze her. 09/11/2018-patient is comfortable in the bed sleeping she able to tell me she has mild abdominal pain and cramping the legs. The nurse notified me this morning patient has a problem with swallowing speech consult was requested she is going to be n.p.o. Today's labs are pending based on the labs patient may go for dialysis. aFebrile and no acute events in the last 24 hours. Urinary output is 1800 cc in the last 24 hours. 09/12/2018-patient is comfortable in the bed complaining of cramps in the both upper legs. No other complaints. Alert and awake. Able to take the tablets in crushed form. Afebrile. No acute events in the last 24 hours. Urinary output is good. Sodium improved to 127.8. Potassium within normal limits. Creatinine worsened to 5.49. Sugars are stable plan to discontinue D10 from today. 09/13/2018-patient was seen in the dialysis unit. Tolerating the dialysis very well. No acute events in the last 24 hours. Febrile. Sodium improved to 130.8. 09/14/[id number]-dhwc-old female with past medical history of migraines, hypertension, hyperlipidemia, history of congestive heart failure, type 2 diabetes mellitus hypothyroidism brought in for altered mental status. Found to have acute renal failure. Received the dialysis on PRN basis. Also found to be hyperkalemic which was resolved. Had a seizure activity most likely secondary to hypoglycemic episodes. Patient was initially persistently hypoglycemic despite on D10 and withholding anti-diabetic medications. Presently she is off of D10 and blood sugars are stable. This morning the family notified the staff that patient choked on scrambled eggs and IV contrast with chest x-ray as a follow-up to see any changes. Patient is comfortable in the bed communicating well stating she is tired today. No fever was noticed in the last 24 hours. Reason For Visit: ACUTE KIDNEY INJURY,HYPOGLYCEMIA,HYPOTHERMIA Physical Exam Vital Signs: Temp Pulse Resp BP Pulse Ox 98.3 F 77 18 159/64 H 100 09/14/18 07:51 09/14/18 07:51 09/14/18 07:51 09/14/18 07:51 09/14/18 07:51 Intake & Output 09/13/18 09/14/18 09/15/18 06:59 06:59 06:59 Intake Total 543 100 Output Total 1125 1800 Balance -582 -1700 General appearance: PRESENT: no acute distress, well-developed Head exam: PRESENT: atraumatic Eye exam: PRESENT: PERRLA Mouth exam: PRESENT: moist, tongue midline Teeth exam: PRESENT: poor dentation Neck exam: ABSENT: carotid bruit, JVD, lymphadenopathy, thyromegaly Respiratory exam: PRESENT: decreased breath sounds Cardiovascular exam: PRESENT: RRR. ABSENT: diastolic murmur, rubs, systolic mur mur GI/Abdominal exam: PRESENT: normal bowel sounds, soft. ABSENT: distended, guarding, mass, organolmegaly, rebound, tenderness Rectal exam: PRESENT: deferred Gentrourinary exam: PRESENT: indwelling catheter Extremities exam: PRESENT: full ROM. ABSENT: calf tenderness, clubbing, pedal edema Neurological exam: PRESENT: alert, awake, oriented to person, oriented to place, oriented to time, oriented to situation, CN II-XII grossly intact. ABSENT: motor sensory deficit Psychiatric exam: PRESENT: appropriate affect, normal mood. ABSENT: homicidal ideation, suicidal ideation Results Laboratory Results: 09/14/18 03:56 09/14/18 03:56 09/14/18 09/14/18 03:56 03:56 WBC 8.1 RBC 2.67 L Hgb 8.7 L Hct 25.1 L MCV 94 MCH 32.7 MCHC 34.8 RDW 12.7 Plt Count 124 L Seg Neutrophils % 73.7 Lymphocytes % 12.5 L Monocytes % 9.7 Eosinophils % 3.9 Basophils % 0.2 Absolute Neutrophils 5.9 Absolute Lymphocytes 1.0 Absolute Monocytes 0.8 Absolute Eosinophils 0.3 Absolute Basophils 0.0 Sodium 134.9 L Potassium 3.8 Chloride 99 Carbon Dioxide 24 Anion Gap 12 BUN 39 H Creatinine 4.88 H Est GFR ( Amer) 11 L Est GFR (Non-Af Amer) 9 L Glucose 83 Calcium 8.0 L Magnesium 2.1 Total Bilirubin 0.4 AST 19 ALT 21 Alkaline Phosphatase 56 Total Protein 4.8 L Albumin 2.5 L 09/08/18 15:50 Blood Blood Culture - Final NO GROWTH IN 5 DAYS Impressions: Renal Ultrasound 09/08/18 00:00 IMPRESSION: NORMAL RENAL AND BLADDER ULTRASOUND. Head CT 09/08/18 13:40 IMPRESSION: OLD BILATERAL LACUNAR BASAL GANGLION INFARCTS. MINIMAL CHRONIC WHITE MATTER CHANGES. OTHERWISE, NORMAL NONCONTRAST CT HEAD. EVIDENCE OF ACUTE STROKE: NO. KUB X-Ray 09/11/18 00:00 IMPRESSION: NO RADIOGRAPHIC EVIDENCE FOR ACUTE ABDOMINAL DISEASE. Chest X-Ray 09/12/18 00:00 IMPRESSION: 1. Airspace disease in the left lower lobe: Pneumonia versus atelectasis. 2. Perihilar opacification. Cannot exclude pulmonary edema. 3. Cannot exclude limited right upper lobe pneumonia. Assessment and Plan - Diagnosis (1) Hyperkalemia Is this a current diagnosis for this admission?: Yes Plan: Potassium level worsened from 5.4-5.6. Patient is not able to take Kayexalate. Insulin going to be given because of her hypoglycemia. Hopefully during the dialysis which will be corrected. 09/11/2018-serum potassium level is 5.2 yesterday that is prior to dialysis. Waiting for the labs today. Based on the potassium levels and other labs she may may not go to dialysis today. 09/12/2018-serum potassium is 4.3 stable. Hyperkalemia is resolved. 09/13/2018-serum potassium today is 4.3 hyperkalemia due to kidney injury r esolved. 09/14/2018-serum potassium today is 3.8 hyperkalemia is resolved. Last hemodialysis he is on 09/13/2018. (2) Seizure-like activity Is this a current diagnosis for this admission?: Yes Plan: Her CT head is positive for altered basilar lacunar bilateral ganglial infarcts. She is given a dose of Ativan and seizure activity subsided. Patient loaded with phenytoin and maintained with Keppra. 09/11/2018-no seizure activity was noted in the last 24 to 48 hours. Patient is presently on her Dilantin and Keppra. CT shows positive for old basilar Lacunar infarcts. 09/12/2018-patient does not have any seizure activity in the last 48 hours. Presently on IV Dilantin and Keppra. Plan is to discontinue Dilantin from today and continue to keep her on Keppra. in My opinion seizures may be secondary to hypoglycemia. 09/13/2018-patient noticed to have seizure activity few days ago she was started on her Dilantin and Keppra Dilantin was discontinued no seizure activity for more than 7 to 2 hours as far as I know. Plan is we may stop Keppra from today. In my opinion hypoglycemia causing the seizure activity. And hypoglycemia is resolved now. 09/14/2018-patient brought into the emergency room with seizure-like activity most likely secondary to hypoglycemia and uremia plan is to discontinue Keppra from today. Continue to closely monitor her for seizure activity. (3) Acute kidney injury Is this a current diagnosis for this admission?: Yes Plan: Kidney function is worsening. Dr. Rubi plan to dialyze her. 09/11/[id number]-bscp-old female came in with FABIAN kidney function is continued to deteriorate with electrode abnormalities creatinine is 6.87 yesterday he went for dialysis waiting for the repeat labs this morning. Based on the creatinine levels she may may not go to dialysis today. Urinary output is 1800 cc yesterday. 09/12/2018-patient came in with FABIAN and she had a dialysis day before and the clots are improved from yesterday sodium is 127.8 potassium is 4.3 and creatinine was 5.49 nephrology is following the patient urinary output is good. 09/13/2018-patient is admitted with acute kidney injury requiring dialysis today she is getting dialysis this is her second session of dialysis. It is 6.09. plan Is to repeat the labs tomorrow. Urinary output is good. 09/14/2018-patient is admitted with acute kidney injury she had dialysis yesterday. Creatinine was 4.88 bicarb is 24 and bicarb supplementation was discontinued sodium is 135 within normal limits potassium is 3.8. Magnesium is 2.1. In my opinion patient may not need dialysis today. urine output is 1.1 L yesterday. (4) Hypertension Qualifiers: Hypertension type: essential hypertension Qualified Code(s): I10 - Essential (primary) hypertension Is this a current diagnosis for this admission?: Yes Plan: Continue her home medication. 09/11/2018-patient blood pressure this morning is 177/81. Presently on hydralazine 10 mg IV every 4 PRN for systolic blood pressure more than 150. Plan is to continue the present management. 09/12/2018-blood pressure today is 135/57 stable. She is off the normal saline from yesterday. Only fluids she is on no obvious D10 which is going to be discontinued today. 09/13/2018-patient blood pressure today is 164/68. Hopefully after the dialysis blood pressures are going to improve. Patient is off the IV fluids. 09/14/2018-patient blood pressure today is 172/62. She is off the IV fluids. Pr esently on IV hydralazine 10 mg every 4 hours for systolic blood pressure more than 150. Plan is to continue the present management. Patient denies any headaches chest pains. (5) Complicated UTI (urinary tract infection) Is this a current diagnosis for this admission?: Yes (6) Hypoglycemia Is this a current diagnosis for this admission?: Yes Plan: 09/11/2018-patient's latest blood sugars are close to 200. She is on D10 at 75 cc/h plan is to decrease the rate to 40 cc/h. She is going to be n.p.o. because of problems swallowing and speech consult was requested. 09/12/2018-latest blood sugar is 159 stable she is on D10 at 40 cc/h. Plan is to discontinue D10 from today. 09/13/2018-latest blood sugar is 85 hypoglycemia is resolved. D10 was discontinued from yesterday. Patient able to tolerate the nectar thickened diet. 09/14/2018-patient blood sugar this morning is 83 and hypoglycemia due to sulfonylurea resolved. (7) Hyponatremia Is this a current diagnosis for this admission?: Yes Plan: 09/11/2018-patient serum sodium level is 122 yesterday. Receiving normal saline at 125 cc/h she had dialysis yesterday today's labs are pending. Normal saline rate was decreased to 75 cc/h to prevent rapid correction of the hyponatremia. Patient is alert awake communicating well no signs of confusion. 09/12/2018-serum sodium is 127.8 still hyponatremic most likely secondary to acute renal failure. Patient more alert and more awake. Normal saline was discontinued yesterday. To repeat the labs tomorrow morning. 09/13/2018-serum sodium is 130.8. Most likely secondary to acute renal failure. Urinary output is good. Off the IV fluids. Mental status is significantly improved. 09/14/2018-serum sodium level today is 135 hyponatremia is resolved most likely secondary to acute kidney injury. She is off normal saline for the last 48 hours. (8) Metabolic acidosis Is this a current diagnosis for this admission?: Yes Plan: 09/11/2018-patient serum bicarb is 14 yesterday I think she received bicarb during the dialysis today's labs are pending. 09/12/2018-serum bicarb is 21 and metabolic acidosis resolved. 09/13/2018-serum bicarb is 20. Patient was admitted with severe metabolic acidosis requiring sodium bicarb now the bicarb levels are stable around 20. pt is receiving p.o. sodium bicarb now. 09/14 2018-serum bicarb is 24 today. Sodium bicarb supplementation was discontinued. Metabolic acidosis due to acute kidney injury resolved. (9) Type 2 diabetes mellitus Is this a current diagnosis for this admission?: Yes Plan: Hold glipizide and start her on sliding scale. 09/11/2018-patient has history of type 2 diabetes mellitus she became hypoglycemic during the hospital stay she was on glipizide at home which was on hold she is on D10 today's blood sugar is 220 D10 rate was decreased to 40 cc/h and she is going to be n.p.o. until she was evaluated by the speech therapist. 09/12/2018-patient with history of type 2 diabetes mellitus admitted with hypog lycemia most likely secondary to sulfonylurea. She still on D10 at 40 cc/h. Plan is to discontinue D10 from today. 09/13/2018-patient history of type 2 diabetes mellitus. Became hypoglycemic due to sulfonylureas. Latest blood sugar is 85. 09/14/2018-patient has history of type 2 diabetes mellitus blood sugar is 83 today. Continue to closely monitor the blood sugars before meals and at bedtime . (10) Acute encephalopathy Is this a current diagnosis for this admission?: Yes Plan: Improving 09/11/2018-acute encephalopathy/altered mental status most likely secondary to electrolyte abnormalities. This morning alert and awake communicating well. Waiting for the labs today. 09/12/2018-acute and coagulopathy most likely secondary to FABIAN, electrolyte abnormalities and urine tract infection improving. 09/13/2018-altered mental status most likely secondary to hypoglycemia is resolved. 2018-acute encephalopathy most likely secondary to electrolyte abnormalities and acute kidney injury resolved. (11) Anemia Is this a current diagnosis for this admission?: No Plan: 09/14/2018-patient hemoglobin today is 8.7 anemia of chronic disease most likely secondary to CKD. - Time Time Spent with patient: 25-34 minutes Medications reviewed and adjusted accordingly: Yes Anticipated discharge: SNF
--- NOTE | 2018-09-14 09:33 | RADIOLOGY REPORT (SQ) ---
EXAM DESCRIPTION: CHEST SINGLE VIEW COMPLETED DATE/TIME: 09/14/2018 9:25 am REASON FOR STUDY: possible aspiration COMPARISON: 09/12/2018. EXAM PARAMETERS: NUMBER OF VIEWS: One view. TECHNIQUE: Single frontal radiographic view of the chest acquired. RADIATION DOSE: NA LIMITATIONS: None. FINDINGS: LUNGS AND PLEURA: Scattered faint airspace disease, most prominent in the right upper lobe and left lower lobe. Possible slight improved aeration. No pleural effusion or pneumothorax. MEDIASTINUM AND HILAR STRUCTURES: No masses. Contour normal. HEART AND VASCULAR STRUCTURES: Heart normal in size. Normal vasculature. BONES: No acute findings. HARDWARE: Surgical clips. Hardware in the cervical spine. OTHER: No other significant finding. IMPRESSION: SCATTERED FAINT AIRSPACE DISEASE. POSSIBLE SLIGHT IMPROVEMENT. TECHNICAL DOCUMENTATION: JOB ID: [id number] [employer]- All Rights Reserved Reading location - IP/workstation name: [email or web address]
[2018-09-14] MEDS: LEVOFLOXACIN 250 MG/D5W RTU 250 MG/50 ML RTUPB IV SCH (11:02)
[2018-09-14] MEDS: MULTIVIT-STRESS FORMULA/ZINC TABLET PO SCH (11:03)
[2018-09-14] MEDS: CHOLECALCIFEROL (D3) 1,000 UNIT (25 MCG) TABLET PO SCH (11:03)
[2018-09-14] MEDS: DOCUSATE SODIUM 100 MG CAPSULE PO SCH ×2 (11:03→17:27)
[2018-09-14] MEDS: CROMOLYN SODIUM NASAL SPRAY (5.2 MG/SPRAY) 26 ML NASL SCH (11:04)
[2018-09-14] MEDS: NYSTATIN TOPICAL POWDER 15 GM TP SCH (17:29)
[2018-09-14] MEDS: FAMOTIDINE 20 MG TABLET PO SCH (21:06)
[2018-09-15] MEDS: HEPARIN SOD (PORCINE) 5,000 UNIT/ML 1 ML SYRINGE SUBCUT SCH ×3 (06:29→21:54)
[2018-09-15] MEDS: CYCLOBENZAPRINE HCL 10 MG TABLET PO SCH ×3 (06:32→21:54)
[2018-09-15] MEDS: LEVOTHYROXINE SODIUM 0.075 MG TABLET PO SCH (06:33)
[2018-09-15] MEDS: CROMOLYN SODIUM NASAL SPRAY (5.2 MG/SPRAY) 26 ML NASL SCH (09:05)
[2018-09-15] MEDS: MULTIVIT-STRESS FORMULA/ZINC TABLET PO SCH (09:06)
[2018-09-15] MEDS: TIZANIDINE HCL 4 MG TABLET PO SCH ×2 (09:06→21:54)
[2018-09-15] MEDS: NYSTATIN TOPICAL POWDER 15 GM TP SCH ×2 (09:06→17:32)
[2018-09-15] MEDS: DOCUSATE SODIUM 100 MG CAPSULE PO SCH ×3 (09:06→17:28)
[2018-09-15] MEDS: LEVOFLOXACIN 250 MG/D5W RTU 250 MG/50 ML RTUPB IV SCH (09:07)
[2018-09-15] MEDS: CHOLECALCIFEROL (D3) 1,000 UNIT (25 MCG) TABLET PO SCH (09:07)
--- NOTE | 2018-09-15 09:17 | PDOC PROGRESS REPORT ---
Subjective Progress Note for:: 09/15/18 Subjective:: 68 year old female patient with past medical history of migraine, hypertension, hyperlipidemia, history of congestive heart failure, type 2 diabetes mellitus, hypothyroidism brought with chief complaint of altered mental status. Patient is not able to give meaningful history. History is obtained from the ER attending note and from her daughter who is in the room during my encounter. Daughter at bedside states that she last heard from the patient arou [id number] yesterday evening after giving the patient to slices of [employer]. Daughter states that she did not her from the patient this morning so she went to her home to check on the patient and found her sitting in the same chair as the night before. She states the patient was not moving and had a blank stare on her face. Family states that patient type is currently only eats one meal a day. ER attending mentions in her note that patient took too much insulin but the daughter told me patient takes only glipizide. Daughter expressed concern of the patient developing dementia due to the patient is recent forgetfulness. EMS found the patient her blood glucose level was 45. In ER patient also found to be hypothermic with core temperature of 93. Her CT scan of the head is negative for acute stroke but she has old lacunar infarcts. Chest x-ray no acute cardiopulmonary findings. Her blood work is remarkable for acute kidney injury with BUN of 76 and creatinine of 7.69. Her urine analysis positive for nitrite, leukocyte esterase and pyuria. 09/09/2018: Patient seen and examined at bedside. She is awake alert. And has had recurrent hypoglycemia despite she is being given multiple doses of dextrose and she has been also on D10W. Her kidney function is slightly improved latest creatinine is 6.89. Patient is given also 1 mg of glucagon IM. Her daughter will need patient has not moved her bowel for the last 7 days. KUB ordered and is reportedly negative. We will try her with Kayexalate. 09/10/2018: Patient seen propped up in bed. Reportedly patient did not have sleep last night. Her blood sugars normalized in the latest Accu-Chek is 124. Also started to have jerking movements of her upper extremity and the her face. She is given 2 mg of IV Ativan and the jerking movements subsided. So loaded with phenytoin 1 g and maintained with Keppra 500 mg IV twice daily. Her kidney function and hyperkalemia is worsening. Dr. Rubi plan to dialyze her. 09/11/2018-patient is comfortable in the bed sleeping she able to tell me she has mild abdominal pain and cramping the legs. The nurse notified me this morning patient has a problem with swallowing speech consult was requested she is going to be n.p.o. Today's labs are pending based on the labs patient may go for dialysis. aFebrile and no acute events in the last 24 hours. Urinary output is 1800 cc in the last 24 hours. 09/12/2018-patient is comfortable in the bed complaining of cramps in the both upper legs. No other complaints. Alert and awake. Able to take the tablets in crushed form. Afebrile. No acute events in the last 24 hours. Urinary output is good. Sodium improved to 127.8. Potassium within normal limits. Creatinine worsened to 5.49. Sugars are stable plan to discontinue D10 from today. 09/13/2018-patient was seen in the dialysis unit. Tolerating the dialysis very well. No acute events in the last 24 hours. Febrile. Sodium improved to 130.8. 09/14/[id number]-dzfe-old female with past medical history of migraines, hypertension, hyperlipidemia, history of congestive heart failure, type 2 diabetes mellitus hypothyroidism brought in for altered mental status. Found to have acute renal failure. Received the dialysis on PRN basis. Also found to be hyperkalemic which was resolved. Had a seizure activity most likely secondary to hypoglycemic episodes. Patient was initially persistently hypoglycemic despite on D10 and withholding anti-diabetic medications. Presently she is off of D10 and blood sugars are stable. This morning the family notified the staff that patient choked on scrambled eggs and IV contrast with chest x-ray as a follow-up to see any changes. Patient is comfortable in the bed communicating well stating she is tired today. No fever was noticed in the last 24 hours. 09/15/2018-chest x-ray was done yesterday to rule out an aspiration chest x-ray actually shows slight improvement. No acute events in the last 24 hours. Afebrile. The nurse noticed redness under the left breast on the back she is getting nystatin powder. Patient is complaining of weakness and tiredness. Today's labs are pending. Reason For Visit: ACUTE KIDNEY INJURY,HYPOGLYCEMIA,HYPOTHERMIA Physical Exam Vital Signs: Temp Pulse Resp BP Pulse Ox 98.3 F 68 16 179/68 H 100 09/15/18 07:25 09/15/18 07:25 09/15/18 07:25 09/15/18 07:25 09/15/18 07:25 Intake & Output 09/14/18 09/15/18 09/16/18 06:59 06:59 06:59 Intake Total 100 300 Output Total 1800 1370 Balance -1700 -1070 Weight 69 kg General appearance: PRESENT: no acute distress, well-developed Head exam: PRESENT: atraumatic Eye exam: PRESENT: PERRLA Ear exam: PRESENT: normal external ear exam Mouth exam: PRESENT: moist, tongue midline Teeth exam: PRESENT: poor dentation Neck exam: ABSENT: carotid bruit, JVD, lymphadenopathy, thyromegaly Respiratory exam: PRESENT: decreased breath sounds Cardiovascular exam: PRESENT: RRR. ABSENT: diastolic murmur, rubs, systolic murmur GI/Abdominal exam: PRESENT: normal bowel sounds, soft. ABSENT: distended, guarding, mass, organolmegaly, rebound, tenderness Rectal exam: PRESENT: deferred Gentrourinary exam: PRESENT: indwelling catheter Extremities exam: PRESENT: full ROM. ABSENT: calf tenderness, clubbing, pedal edema Neurological exam: PRESENT: alert, awake, oriented to person, oriented to place, oriented to time, oriented to situation, CN II-XII grossly intact. ABSENT: motor sensory deficit Psychiatric exam: PRESENT: appropriate affect, normal mood. ABSENT: homicidal ideation, suicidal ideation Results Laboratory Results: 09/14/18 03:56 09/14/18 03:56 Impressions: Renal Ultrasound 09/08/18 00:00 IMPRESSION: NORMAL RENAL AND BLADDER ULTRASOUND. Head CT 09/08/18 13:40 IMPRESSION: OLD BILATERAL LACUNAR BASAL GANGLION INFARCTS. MINIMAL CHRONIC W NUBIA MATTER CHANGES. OTHERWISE, NORMAL NONCONTRAST CT HEAD. EVIDENCE OF ACUTE STROKE: NO. KUB X-Ray 09/11/18 00:00 IMPRESSION: NO RADIOGRAPHIC EVIDENCE FOR ACUTE ABDOMINAL DISEASE. Chest X-Ray 09/14/18 00:00 IMPRESSION: SCATTERED FAINT AIRSPACE DISEASE. POSSIBLE SLIGHT IMPROVEMENT. Assessment and Plan - Diagnosis (1) Hyperkalemia Is this a current diagnosis for this admission?: Yes Plan: Potassium level worsened from 5.4-5.6. Patient is not able to take Kayexalate. Insulin going to be given because of her hypoglycemia. Hopefully during the dialysis which will be corrected. 09/11/2018-serum potassium level is 5.2 yesterday that is prior to dialysis. Waiting for the labs today. Based on the potassium levels and other labs she may may not go to dialysis today. 09/12/2018-serum potassium is 4.3 stable. Hyperkalemia is resolved. 09/13/2018-serum potassium today is 4.3 hyperkalemia due to kidney injury resolved. 09/14/2018-serum potassium today is 3.8 hyperkalemia is resolved. Last hemodialysis he is on 09/13/2018. 09/15/2018-yesterday serum potassium is 3.8 and today's labs are pending - hyperkalemia resolved. (2) Seizure-like activity Is this a current diagnosis for this admission?: Yes Plan: Her CT head is positive for altered basilar lacunar bilateral ganglial infarcts. She is given a dose of Ativan and seizure activity subsided. Patient loaded with phenytoin and maintained with Keppra. 09/11/2018-no seizure activity was noted in the last 24 to 48 hours. Patient is presently on her Dilantin and Keppra. CT shows positive for old basilar Lacunar infarcts. 09/12/2018-patient does not have any seizure activity in the last 48 hours. Presently on IV Dilantin and Keppra. Plan is to discontinue Dilantin from today and continue to keep her on Keppra. in My opinion seizures may be secondary to hypoglycemia. 09/13/2018-patient noticed to have seizure activity few days ago she was started on her Dilantin and Keppra Dilantin was discontinued no seizure activity for more than 7 to 2 hours as far as I know. Plan is we may stop Keppra from today. In my opinion hypoglycemia causing the seizure activity. And hypoglycemia is resolved now. 09/14/2018-patient brought into the emergency room with seizure-like activity most likely secondary to hypoglycemia and uremia plan is to discontinue Keppra from today. Continue to closely monitor her for seizure activity. 09/15/2018-patient admitted with seizure activity most likely secondary to uremia and hypoglycemia initially on Dilantin and Keppra EEG was equivocal now she is off Dilantin and off Keppra. no Seizure activity was noted so far after the discontinue with medications. (3) Acute kidney injury Is this a current diagnosis for this admission?: Yes Plan: Kidney function is worsening. Dr. Rubi plan to dialyze her. 09/11/[id number]-ewld-old female came in with FABIAN kidney function is continued to deteriorate with electrode abnormalities creatinine is 6.87 yesterday he went for dialysis waiting for the repeat labs this morning. Based on the creatinine levels she may may not go to dialysis today. Urinary output is 1800 cc yesterday. 09/12/2018-patient came in with FABIAN and she had a dialysis day before and the clots are improved from yesterday sodium is 127.8 potassium is 4.3 and creatinine was 5.49 nephrology is following the patient urinary output is good. 09/13/2018-patient is admitted with acute kidney injury requiring dialysis today she is getting dialysis this is her second session of dialysis. It is 6.09. plan Is to repeat the labs tomorrow. Urinary output is good. 09/14/2018-patient is admitted with acute kidney injury she had dialysis yesterday. Creatinine was 4.88 bicarb is 24 and bicarb supplementation was discontinued sodium is 135 within normal limits potassium is 3.8. Magnesium is 2.1. In my opinion patient may not need dialysis today. urine output is 1.1 L yesterday. 09/15/2018-patient admitted with acute kidney injury last dialysis on 09/13/2017 she still putting out good amount of the urine today's labs are pending. (4) Hypertension Qualifiers: Hypertension type: essential hypertension Qualified Code(s): I10 - Essential (primary) hypertension Is this a current diagnosis for this admission?: Yes Plan: Continue her home medication. 09/11/2018-patient blood pressure this morning is 177/81. Presently on hydralazine 10 mg IV every 4 PRN for systolic blood pressure more than 150. Plan is to continue the present management. 09/12/2018-blood pressure today is 135/57 stable. She is off the normal saline from yesterday. Only fluids she is on no obvious D10 which is going to be discontinued today. 09/13/2018-patient blood pressure today is 164/68. Hopefully after the dialysis blood pressures are going to improve. Patient is off the IV fluids. 09/14/2018-patient blood pressure today is 172/62. She is off the IV fluids. Presently on IV hydralazine 10 mg every 4 hours for systolic blood pressure more than 150. Plan is to continue the present management. Patient denies any headaches chest pains. 09/15/2018-patient blood pressure today is 179/68. On hydralazine IV every 6 as needed. She is off the fluids. Plan is to continue to closely monitor the blood pressures. (5) Complicated UTI (urinary tract infection) Is this a current diagnosis for this admission?: Yes Plan: Continue Levaquin 09/11/2018-urine culture is positive for E. coli patient is on levofloxacin IV plan is to continue the antibiotic. 09/12/2018-urine culture was positive treated with IV levo floxacillin. Plan is to continue the antibiotic for now. 09/15/2018-urine culture was positive for E. coli getting treatment with IV levofloxacin. She finishing 1 week of antibiotic therapy plan is to discontinue antibiotics from today. (6) Hypoglycemia Is this a current diagnosis for this admission?: Yes Plan: 09/11/2018-patient's latest blood sugars are close to 200. She is on D10 at 75 cc/h plan is to decrease the rate to 40 cc/h. She is going to be n.p.o. because of problems swallowing and speech consult was requested. 09/12/2018-latest blood sugar is 159 stable she is on D10 at 40 cc/h. Plan is to discontinue D10 from today. 09/13/2018-latest blood sugar is 85 hypoglycemia is resolved. D10 was discontinued from yesterday. Patient able to tolerate the nectar thickened diet. 09/14/2018-patient blood sugar this morning is 83 and hypoglycemia due to sulfonylurea resolved. 09/15/2018-patient came in with hypoglycemia secondary to sulfonylurea use blood sugar this morning is 115 stable. (7) Hyponatremia Is this a current diagnosis for this admission?: Yes Plan: 09/11/2018-patient serum sodium level is 122 yesterday. Receiving normal saline at 125 cc/h she had dialysis yesterday today's labs are pending. Normal saline rate was decreased to 75 cc/h to prevent rapid correction of the hyponatremia. Patient is alert awake communicating well no signs of confusion. 09/12/2018-serum sodium is 127.8 still hyponatremic most likely secondary to acute renal failure. Patient more alert and more awake. Normal saline was discontinued yesterday. To repeat the labs tomorrow morning. 09/13/2018-serum sodium is 130.8. Most likely secondary to acute renal failure. Urinary output is good. Off the IV fluids. Mental status is significantly improved. 09/14/2018-serum sodium level today is 135 hyponatremia is resolved most likely secondary to acute kidney injury. She is off normal saline for the last 48 hours. 09/15/2018-patient serum sodium is within normal limits yesterday today's labs are pending. (8) Metabolic acidosis Is this a current diagnosis for this admission?: Yes Plan: 09/11/2018-patient serum bicarb is 14 yesterday I think she received bicarb during the dialysis today's labs are pending. 09/12/2018-serum bicarb is 21 and metabolic acidosis resolved. 09/13/2018-serum bicarb is 20. Patient was admitted with severe metabolic acidosis requiring sodium bicarb now the bicarb levels are stable around 20. pt is receiving p.o. sodium bicarb now. 09/14 2018-serum bicarb is 24 today. Sodium bicarb supplementation was discontin ued. Metabolic acidosis due to acute kidney injury resolved. 09/15/2018-patient's metabolic acidosis was resolved sodium bicarb supplementation was discontinued. (9) Type 2 diabetes mellitus Is this a current diagnosis for this admission?: Yes (10) Acute encephalopathy Is this a current diagnosis for this admission?: Yes Plan: Improving 09/11/2018-acute encephalopathy/altered mental status most likely secondary to electrolyte abnormalities. This morning alert and awake communicating well. Waiting for the labs today. 09/12/2018-acute and coagulopathy most likely secondary to FABIAN, electrolyte abnormalities and urine tract infection improving. 09/13/2018-altered mental status most likely secondary to hypoglycemia is resolved. 2018-acute encephalopathy most likely secondary to electrolyte abnormalities and acute kidney injury resolved. 09/15/2018-acute and coagulopathy most likely secondary to uremia and hyperglycemia acute kidney injury and UTI today is alert and awake communicating very well. (11) Anemia Is this a current diagnosis for this admission?: No - Time Medications reviewed and adjusted accordingly: Yes Anticipated discharge: SN[facility]
[2018-09-15 09:33] LABS: ABSOLUTE EOSINOPHILS # (AUTO) 0.3 10^3/uL (0.0-0.6); LYMPHOCYTES % (AUTO) 13.4 % (13-45); MEAN CORPUSCULAR HGB CONC 34.1 g/dL (32.0-36.0); TOTAL CELLS COUNTED % (AUTO) 100 %
[2018-09-15 09:39] LABS: ABSOLUTE LYMPHOCYTES (AUTO) 0.9 10^3/uL (0.5-4.7); ABSOLUTE MONOCYTES (AUTO) 0.7 10^3/uL (0.1-1.4); BASOPHILS % (AUTO) 0.1 % (0-2); EOSINOPHILS % (AUTO) 4.2 % (0-6); HEMATOCRIT 27.1 % (36.0-47.0); HEMOGLOBIN 9.2 g/dL (12.0-15.5); MEAN CORPUSCULAR HEMOGLOBIN 32.3 pg (27.0-33.4); MEAN CORPUSCULAR VOLUME 95 fl (80-97); MONOCYTES % (AUTO) 10.7 % (3-13); PLATELET COUNT 145 10^3/uL (150-450); RED BLOOD COUNT 2.86 10^6/uL (3.72-5.28); RED CELL DISTRIBUTION WIDTH 13.1 % (11.5-14.0); SEGMENTED NEUTROPHILS % (AUTO) 71.6 % (42-78)
[2018-09-15 09:53] LABS: ALANINE AMINOTRANSFERASE 27 U/L (9-52); ALBUMIN 2.6 g/dL (3.5-5.0); ALKALINE PHOSPHATASE 57 U/L (38-126); ANION GAP 12 (5-19); ASPARTATE AMINO TRANSFERASE 21 U/L (14-36); BILIRUBIN,DIRECT 0.3 mg/dL (0.0-0.4); BILIRUBIN,TOTAL 0.3 mg/dL (0.2-1.3); BLOOD UREA NITROGEN 48 mg/dL (7-20); CALCIUM 8.1 mg/dL (8.4-10.2); CARBON DIOXIDE 23 mmol/L (22-30); CHLORIDE 99 mmol/L (98-107); GLUCOSE 115 mg/dL (75-110); POTASSIUM 4.1 mmol/L (3.6-5.0); SODIUM 133.6 mmol/L (137-145); TOTAL PROTEIN 4.8 g/dL (6.3-8.2)
[2018-09-15] MEDS: HYDRALAZINE HCL INJ/PF 20 MG/1 ML SDV IV PRN (15:22)
[2018-09-15] MEDS: ACETAMINOPHEN 325 MG TABLET PO PRN (15:22)
[2018-09-15] MEDS: ONDANSETRON HCL INJ/PF 4 MG/2 ML SDV IV PRN (15:23)
[2018-09-15] MEDS: MAG HYDROX/AL HYDROX/SIMETH SUSP 30 ML UDCUP PO PRN (17:30)
[2018-09-15] MEDS: FAMOTIDINE 20 MG TABLET PO SCH (21:54)
[2018-09-16] MEDS: CYCLOBENZAPRINE HCL 10 MG TABLET PO SCH ×3 (06:26→21:37)
[2018-09-16] MEDS: LEVOTHYROXINE SODIUM 0.075 MG TABLET PO SCH (06:26)
[2018-09-16] MEDS: HEPARIN SOD (PORCINE) 5,000 UNIT/ML 1 ML SYRINGE SUBCUT SCH ×3 (06:27→21:38)
--- NOTE | 2018-09-16 08:52 | PDOC PROGRESS REPORT ---
Subjective Progress Note for:: 09/16/18 Subjective:: 68 year old female patient with past medical history of migraine, hypertension, hyperlipidemia, history of congestive heart failure, type 2 diabetes mellitus, hypothyroidism brought with chief complaint of altered mental status. Patient is not able to give meaningful history. History is obtained from the ER attending note and from her daughter who is in the room during my encounter. Daughter at bedside states that she last heard from the patient arou [id number] yesterday evening after giving the patient to slices of [employer]. Daughter states that she did not her from the patient this morning so she went to her home to check on the patient and found her sitting in the same chair as the night before. She states the patient was not moving and had a blank stare on her face. Family states that patient type is currently only eats one meal a day. ER attending mentions in her note that patient took too much insulin but the daughter told me patient takes only glipizide. Daughter expressed concern of the patient developing dementia due to the patient is recent forgetfulness. EMS found the patient her blood glucose level was 45. In ER patient also found to be hypothermic with core temperature of 93. Her CT scan of the head is negative for acute stroke but she has old lacunar infarcts. Chest x-ray no acute cardiopulmonary findings. Her blood work is remarkable for acute kidney injury with BUN of 76 and creatinine of 7.69. Her urine analysis positive for nitrite, leukocyte esterase and pyuria. 09/09/2018: Patient seen and examined at bedside. She is awake alert. And has had recurrent hypoglycemia despite she is being given multiple doses of dextrose and she has been also on D10W. Her kidney function is slightly improved latest creatinine is 6.89. Patient is given also 1 mg of glucagon IM. Her daughter will need patient has not moved her bowel for the last 7 days. KUB ordered and is reportedly negative. We will try her with Kayexalate. 09/10/2018: Patient seen propped up in bed. Reportedly patient did not have sleep last night. Her blood sugars normalized in the latest Accu-Chek is 124. Also started to have jerking movements of her upper extremity and the her face. She is given 2 mg of IV Ativan and the jerking movements subsided. So loaded with phenytoin 1 g and maintained with Keppra 500 mg IV twice daily. Her kidney function and hyperkalemia is worsening. Dr. Rubi plan to dialyze her. 09/11/2018-patient is comfortable in the bed sleeping she able to tell me she has mild abdominal pain and cramping the legs. The nurse notified me this morning patient has a problem with swallowing speech consult was requested she is going to be n.p.o. Today's labs are pending based on the labs patient may go for dialysis. aFebrile and no acute events in the last 24 hours. Urinary output is 1800 cc in the last 24 hours. 09/12/2018-patient is comfortable in the bed complaining of cramps in the both upper legs. No other complaints. Alert and awake. Able to take the tablets in crushed form. Afebrile. No acute events in the last 24 hours. Urinary output is good. Sodium improved to 127.8. Potassium within normal limits. Creatinine worsened to 5.49. Sugars are stable plan to discontinue D10 from today. 09/13/2018-patient was seen in the dialysis unit. Tolerating the dialysis very well. No acute events in the last 24 hours. Febrile. Sodium improved to 130.8. 09/14/[id number]-qije-old female with past medical history of migraines, hypertension, hyperlipidemia, history of congestive heart failure, type 2 diabetes mellitus hypothyroidism brought in for altered mental status. Found to have acute renal failure. Received the dialysis on PRN basis. Also found to be hyperkalemic which was resolved. Had a seizure activity most likely secondary to hypoglycemic episodes. Patient was initially persistently hypoglycemic despite on D10 and withholding anti-diabetic medications. Presently she is off of D10 and blood sugars are stable. This morning the family notified the staff that patient choked on scrambled eggs and IV contrast with chest x-ray as a follow-up to see any changes. Patient is comfortable in the bed communicating well stating she is tired today. No fever was noticed in the last 24 hours. 09/15/2018-chest x-ray was done yesterday to rule out an aspiration chest x-ray actually shows slight improvement. No acute events in the last 24 hours. Afebrile. The nurse noticed redness under the left breast on the back she is getting nystatin powder. Patient is complaining of weakness and tiredness. Today's labs are pending. 09/16/[id number]-elfp-old female admitted with acute renal failure, UTI ,seizure activity hypoglycemia. No acute events in the last 24 hours. Afebrile. Plan to do the labs today and tomorrow. Reason For Visit: ACUTE KIDNEY INJURY,HYPOGLYCEMIA,HYPOTHERMIA Physical Exam Vital Signs: Temp Pulse Resp BP Pulse Ox 98.8 F 76 16 177/62 H 100 09/15/18 20:33 09/16/18 07:00 09/15/18 20:33 09/15/18 20:33 09/15/18 20:33 Intake & Output 09/15/18 09/16/18 09/17/18 06:59 06:59 06:59 Intake Total 300 510 Output Total 1370 1650 Balance -1070 -1140 Weight 69 kg 68 kg General appearance: PRESENT: no acute distress, obese Head exam: PRESENT: atraumatic Eye exam: PRESENT: PERRLA Ear exam: PRESENT: normal external ear exam Mouth exam: PRESENT: neck supple Teeth exam: PRESENT: poor dentation Neck exam: ABSENT: carotid bruit, JVD, lymphadenopathy, thyromegaly Respiratory exam: PRESENT: clear to auscultation ahsan. ABSENT: rales, rhonchi, wheezes Cardiovascular exam: PRESENT: RRR. ABSENT: diastolic murmur, rubs, systolic murmur GI/Abdominal exam: PRESENT: normal bowel sounds, soft. ABSENT: distended, guarding, mass, organolmegaly, rebound, tenderness Rectal exam: PRESENT: deferred Gentrourinary exam: PRESENT: indwelling catheter Neurological exam: PRESENT: alert, awake, oriented to person, oriented to place, oriented to time, oriented to situation, CN II-XII grossly intact. ABSENT: motor sensory deficit Psychiatric exam: PRESENT: appropriate affect, normal mood. ABSENT: homicidal ideation, suicidal ideation Results Laboratory Results: 09/15/18 08:40 09/15/18 08:40 09/15/18 09/15/18 08:40 08:40 WBC 7.0 RBC 2.86 L Hgb 9.2 L Hct 27.1 L MCV 95 MCH 32.3 MCHC 34.1 RDW 13.1 Plt Count 145 L Seg Neutrophils % 71.6 Lymphocytes % 13.4 Monocytes % 10.7 Eosinophils % 4.2 Basophils % 0.1 Absolute Neutrophils 5.0 Absolute Lymphocytes 0.9 Absolute Monocytes 0.7 Absolute Eosinophils 0.3 Absolute Basophils 0.0 Sodium 133.6 L Potassium 4.1 Chloride 99 Carbon Dioxide 23 Anion Gap 12 BUN 48 H Creatinine 4.93 H Est GFR ( Amer) 11 L Est GFR (Non-Af Amer) 9 L Glucose 115 H Calcium 8.1 L Magnesium 2.1 Total Bilirubin 0.3 AST 21 ALT 27 Alkaline Phosphatase 57 Total Protein 4.8 L Albumin 2.6 L Impressions: Renal Ultrasound 09/08/18 00:00 IMPRESSION: NORMAL RENAL AND BLADDER ULTRASOUND. Head CT 09/08/18 13:40 IMPRESSION: OLD BILATERAL LACUNAR BASAL GANGLION INFARCTS. MINIMAL CHRONIC WHITE MATTER CHANGES. OTHERWISE, NORMAL NONCONTRAST CT HEAD. EVIDENCE OF ACUTE STROKE: NO. KUB X-Ray 09/11/18 00:00 IMPRESSION: NO RADIOGRAPHIC EVIDENCE FOR ACUTE ABDOMINAL DISEASE. Chest X-Ray 09/14/18 00:00 IMPRESSION: SCATTERED FAINT AIRSPACE DISEASE. POSSIBLE SLIGHT IMPROVEMENT. Assessment and Plan - Diagnosis (1) Hyperkalemia Is this a current diagnosis for this admission?: Yes Plan: Potassium level worsened from 5.4-5.6. Patient is not able to take Kayexalate. Insulin going to be given because of her hypoglycemia. Hopefully during the dialysis which will be corrected. 09/11/2018-serum potassium level is 5.2 yesterday that is prior to dialysis. Waiting for the labs today. Based on the potassium levels and other labs she may may not go to dialysis today. 09/12/2018-serum potassium is 4.3 stable. Hyperkalemia is resolved. 09/13/2018-serum potassium today is 4.3 hyperkalemia due to kidney injury resolved. 09/14/2018-serum potassium today is 3.8 hyperkalemia is resolved. Last hemodialysis he is on 09/13/2018. 09/15/2018-yesterday serum potassium is 3.8 and today's labs are pending -hyperkalemia resolved. 09/16/2018-today's labs are pending potassium level yesterday is 4.1 hyperkalemia is resolved. (2) Seizure-like activity Is this a current diagnosis for this admission?: Yes Plan: Her CT head is positive for altered basilar lacunar bilateral ganglial infarcts. She is given a dose of Ativan and seizure activity subsided. Patient loaded with phenytoin and maintained with Keppra. 09/11/2018-no seizure activity was noted in the last 24 to 48 hours. Patient is presently on her Dilantin and Keppra. CT shows positive for old basilar Lacunar infarcts. 09/12/2018-patient does not have any seizure activity in the last 48 hours. Presently on IV Dilantin and Keppra. Plan is to discontinue Dilantin from today and continue to keep her on Keppra. in My opinion seizures may be secondary to hypoglycemia. 09/13/2018-patient noticed to have seizure activity few days ago she was started on her Dilantin and Keppra Dilantin was discontinued no seizure activity for more than 7 to 2 hours as far as I know. Plan is we may stop Keppra from today. In my opinion hypoglycemia causing the seizure activity. And hypoglycemia is resolved now. 09/14/2018-patient brought into the emergency room with seizure-like activity mos t likely secondary to hypoglycemia and uremia plan is to discontinue Keppra from today. Continue to closely monitor her for seizure activity. 09/15/2018-patient admitted with seizure activity most likely secondary to uremia and hypoglycemia initially on Dilantin and Keppra EEG was equivocal now she is off Dilantin and off Keppra. no Seizure activity was noted so far after the discontinue with medications. 09/16/2018-no seizure activity for more than 4 days. IV Dilantin and Keppra are discontinued now. (3) Acute kidney injury Is this a current diagnosis for this admission?: Yes Plan: Kidney function is worsening. Dr. uRbi plan to dialyze her. 09/11/[id number]-dkwi-old female came in with FABIAN kidney function is continued to deteriorate with electrode abnormalities creatinine is 6.87 yesterday he went for dialysis waiting for the repeat labs this morning. Based on the creatinine levels she may may not go to dialysis today. Urinary output is 1800 cc yesterday. 09/12/2018-patient came in with AFBIAN and she had a dialysis day before and the clots are improved from yesterday sodium is 127.8 potassium is 4.3 and creatini ne was 5.49 nephrology is following the patient urinary output is good. 09/13/2018-patient is admitted with acute kidney injury requiring dialysis today she is getting dialysis this is her second session of dialysis. It is 6.09. plan Is to repeat the labs tomorrow. Urinary output is good. 09/14/2018-patient is admitted with acute kidney injury she had dialysis yesterday. Creatinine was 4.88 bicarb is 24 and bicarb supplementation was discontinued sodium is 135 within normal limits potassium is 3.8. Magnesium is 2.1. In my opinion patient may not need dialysis today. urine output is 1.1 L yesterday. 09/15/2018-patient admitted with acute kidney injury last dialysis on 09/13/2017 she still putting out good amount of the urine today's labs are pending. 09/16/2018-patient's latest creatinine is 4.93 today's labs are pending patient is receiving dialysis on PRN basis. Urinary output is still good. (4) Hypertension Qualifiers: Hypertension type: essential hypertension Qualified Code(s): I10 - Essential (primary) hypertension Is this a current diagnosis for this admission?: Yes Plan: Continue her home medication. 09/11/2018-patient blood pressure this morning is 177/81. Presently on hydralazine 10 mg IV every 4 PRN for systolic blood pressure more than 150. Plan is to continue the present management. 09/12/2018-blood pressure today is 135/57 stable. She is off the normal saline from yesterday. Only fluids she is on no obvious D10 which is going to be discontinued today. 09/13/2018-patient blood pressure today is 164/68. Hopefully after the dialysis blood pressures are going to improve. Patient is off the IV fluids. 09/14/2018-patient blood pressure today is 172/62. She is off the IV fluids. Presently on IV hydralazine 10 mg every 4 hours for systolic blood pressure more than 150. Plan is to continue the present management. Patient denies any headaches chest pains. 09/15/2018-patient blood pressure today is 179/68. On hydralazine IV every 6 as needed. She is off the fluids. Plan is to continue to closely monitor the blood pressures. 09/16/2018-patient blood pressure today is 177/62. On IV hydralazine every 6 hours as needed to start on amlodipine 5 mg p.o. daily from today. (5) Complicated UTI (urinary tract infection) Is this a current diagnosis for this admission?: Yes (6) Hypoglycemia Is this a current diagnosis for this admission?: Yes Plan: 09/11/2018-patient's latest blood sugars are close to 200. She is on D10 at 75 cc/h plan is to decrease the rate to 40 cc/h. She is going to be n.p.o. because of problems swallowing and speech consult was requested. 09/12/2018-latest blood sugar is 159 stable she is on D10 at 40 cc/h. Plan is to discontinue D10 from today. 09/13/2018-latest blood sugar is 85 hypoglycemia is resolved. D10 was discontinued from yesterday. Patient able to tolerate the nectar thickened diet. 09/14/2018-patient blood sugar this morning is 83 and hypoglycemia due to sulfony lurea resolved. 09/15/2018-patient came in with hypoglycemia secondary to sulfonylurea use blood sugar this morning is 115 stable. 09/16/2018-patient is appetite is getting better on daily basis as per the family members blood sugar is 113 today. Plan is to continue the present management. (7) Hyponatremia Is this a current diagnosis for this admission?: Yes Plan: 09/11/2018-patient serum sodium level is 122 yesterday. Receiving normal saline at 125 cc/h she had dialysis yesterday today's labs are pending. Normal saline rate was decreased to 75 cc/h to prevent rapid correction of the hyponatremia. Patient is alert awake communicating well no signs of confusion. 09/12/2018-serum sodium is 127.8 still hyponatremic most likely secondary to acute renal failure. Patient more alert and more awake. Normal saline was discontinued yesterday. To repeat the labs tomorrow morning. 09/13/2018-serum sodium is 130.8. Most likely secondary to acute renal failure. Urinary output is good. Off the IV fluids. Mental status is significantly improved. 09/14/2018-serum sodium level today is 135 hyponatremia is resolved most likely secondary to acute kidney injury. She is off normal saline for the last 48 hours. 09/15/2018-patient serum sodium is within normal limits yesterday today's labs are pending. 09/16/2018-patient serum sodium is 133.6 today. Most likely secondary to FABIAN with fluid retention. (8) Metabolic acidosis Is this a current diagnosis for this admission?: Yes Plan: 09/11/2018-patient serum bicarb is 14 yesterday I think she received bicarb during the dialysis today's labs are pending. 09/12/2018-serum bicarb is 21 and metabolic acidosis resolved. 09/13/2018-serum bicarb is 20. Patient was admitted with severe metabolic acidosis requiring sodium bicarb now the bicarb levels are stable around 20. pt is receiving p.o. sodium bicarb now. 09/14 2018-serum bicarb is 24 today. Sodium bicarb supplementation was discontinued. Metabolic acidosis due to acute kidney injury resolved. 09/15/2018-patient's metabolic acidosis was resolved sodium bicarb supplementation was discontinued. 09/16/2018-serum bicarb is 23 sodium bicarb per supplementation was discontinued. (9) Type 2 diabetes mellitus Is this a current diagnosis for this admission?: Yes Plan: Hold glipizide and start her on sliding scale. 09/11/2018-patient has history of type 2 diabetes mellitus she became hypoglycemic during the hospital stay she was on glipizide at home which was on hold she is on D10 today's blood sugar is 220 D10 rate was decreased to 40 cc/h and she is going to be n.p.o. until she was evaluated by the speech therapist. 09/12/2018-patient with history of type 2 diabetes mellitus admitted with hypoglycemia most likely secondary to sulfonylurea. She still on D10 at 40 cc/h. Plan is to discontinue D10 from today. 09/13/2018-patient history of type 2 diabetes mellitus. Became hypoglycemic due to sulfonylureas. Latest blood sugar is 85. 09/14/2018-patient has history of type 2 diabetes mellitus blood sugar is 83 today. Continue to closely monitor the blood sugars before meals and at bedtime. 09/16/2018-patient blood sugar is 113 today presently not on diabetic medications. Patient is appetite is gradually improving. (10) Acute encephalopathy Is this a current diagnosis for this admission?: Yes Plan: Improving 09/11/2018-acute encephalopathy/altered mental status most likely secondary to electrolyte abnormalities. This morning alert and awake communicating well. Waiting for the labs today. 09/12/2018-acute and coagulopathy most likely secondary to FABIAN, electrolyte abnormalities and urine tract infection improving. 09/13/2018-altered mental status most likely secondary to hypoglycemia is resolved. 09/14/2018-acute encephalopathy most likely secondary to electrolyte abnormalities and acute kidney injury resolved. 09/15/2018-acute and coagulopathy most likely secondary to uremia and hyperglycemia acute kidney injury and UTI today is alert and awake communicating very well. 09/16/2018-patient alert and awake oriented communicating well. Altered mental status may be secondary to hypoglycemia, electric abnormalities and acute kidney injury. (11) Anemia Is this a current diagnosis for this admission?: No Plan: 09/14/2018-patient hemoglobin today is 8.7 anemia of chronic disease most likely secondary to CKD. 09/16/2018-patient hemoglobin is around 9.2 stable. - Time Time Spent with patient: 25-34 minutes Medications reviewed and adjusted accordingly: Yes Anticipated discharge: SNF
[2018-09-16] MEDS: DOCUSATE SODIUM 100 MG CAPSULE PO SCH ×2 (09:45→19:38)
[2018-09-16] MEDS: TIZANIDINE HCL 4 MG TABLET PO SCH ×2 (09:46→21:38)
[2018-09-16] MEDS: MULTIVIT-STRESS FORMULA/ZINC TABLET PO SCH (09:46)
[2018-09-16] MEDS: CHOLECALCIFEROL (D3) 1,000 UNIT (25 MCG) TABLET PO SCH (09:48)
[2018-09-16] MEDS: NYSTATIN TOPICAL POWDER 15 GM TP SCH ×2 (09:48→19:39)
[2018-09-16 09:52] LABS: ABSOLUTE EOSINOPHILS # (AUTO) 0.3 10^3/uL (0.0-0.6); ABSOLUTE LYMPHOCYTES (AUTO) 0.9 10^3/uL (0.5-4.7); ABSOLUTE MONOCYTES (AUTO) 0.9 10^3/uL (0.1-1.4); ABSOLUTE NEUT (AUTO) 5.8 10^3/uL (1.7-8.2); BASOPHILS % (AUTO) 0.3 % (0-2); EOSINOPHILS % (AUTO) 3.7 % (0-6); HEMATOCRIT 27.2 % (36.0-47.0); HEMOGLOBIN 9.1 g/dL (12.0-15.5); LYMPHOCYTES % (AUTO) 11.1 % (13-45); MEAN CORPUSCULAR HEMOGLOBIN 32.2 pg (27.0-33.4); MEAN CORPUSCULAR HGB CONC 33.4 g/dL (32.0-36.0); MEAN CORPUSCULAR VOLUME 97 fl (80-97); PLATELET COUNT 163 10^3/uL (150-450); RED BLOOD COUNT 2.82 10^6/uL (3.72-5.28); SEGMENTED NEUTROPHILS % (AUTO) 73.9 % (42-78); TOTAL CELLS COUNTED % (AUTO) 100 %; WHITE BLOOD COUNT 7.8 10^3/uL (4.0-10.5)
[2018-09-16] MEDS: CROMOLYN SODIUM NASAL SPRAY (5.2 MG/SPRAY) 26 ML NASL SCH (10:01)
[2018-09-16 10:41] LABS: ALANINE AMINOTRANSFERASE 21 U/L (9-52); ALBUMIN 2.7 g/dL (3.5-5.0); ALKALINE PHOSPHATASE 53 U/L (38-126); ANION GAP 11 (5-19); ASPARTATE AMINO TRANSFERASE 23 U/L (14-36); BILIRUBIN,DIRECT 0.2 mg/dL (0.0-0.4); BILIRUBIN,TOTAL 0.2 mg/dL (0.2-1.3); BLOOD UREA NITROGEN 55 mg/dL (7-20); CALCIUM 8.1 mg/dL (8.4-10.2); CARBON DIOXIDE 24 mmol/L (22-30); CHLORIDE 98 mmol/L (98-107); GLUCOSE 158 mg/dL (75-110); POTASSIUM 4.5 mmol/L (3.6-5.0); SODIUM 133.3 mmol/L (137-145); TOTAL PROTEIN 5.3 g/dL (6.3-8.2)
--- NOTE | 2018-09-16 13:06 | PDOC PROGRESS REPORT ---
Subjective Progress Note for:: 09/16/18 Reason For Visit: Patient seen today. Her daughter is by the bedside. Patient looks positively better compared to when I last saw her on Sunday. According to the daughter and the patient her appetite is slowly returning and she is consuming more solids and liquids. She has had couple of small bowel movements as well. Abdomen still sounds a bit gassy and mildly distended but not like what it was last week. No history of any nausea or vomiting. Has had no further hypoglycemic attacks. Labs and medications were reviewed with the patient and the daughter. She also mentions of the mild exacerbation of her chronic low back pain. She is making good urine output.She was last dialyzed on Sunday. Physical Exam Vital Signs: Temp Pulse Resp BP Pulse Ox 98.2 F 74 16 172/68 H 100 09/16/18 07:42 09/16/18 07:42 09/16/18 07:42 09/16/18 07:42 09/16/18 07:42 Intake & Output 09/15/18 09/16/18 09/17/18 06:59 06:59 06:59 Intake Total 300 510 120 Output Total 1370 1650 600 Balance -1070 -1140 -480 Weight 69 kg 68 kg General appearance: PRESENT: no acute distress Respiratory exam: PRESENT: clear to auscultation ahsan, crackles - But better than what I heard on Sunday.. ABSENT: rhonchi Cardiovascular exam: PRESENT: +S1, +S2 GI/Abdominal exam: PRESENT: distended, normal bowel sounds, tenderness - Generalized.. ABSENT: ascites, organomegaly, rigid Extremities exam: ABSENT: pedal edema Neurological exam: PRESENT: alert, awake, oriented to person, oriented to place, oriented to time Psychiatric exam: PRESENT: depressed Skin exam: ABSENT: erythema, mottled, rash Results Laboratory Results: 09/16/18 09:38 09/16/18 09:38 09/16/18 09/16/18 09:38 09:38 WBC 7.8 RBC 2.82 L Hgb 9.1 L Hct 27.2 L MCV 97 MCH 32.2 MCHC 33.4 RDW 13.0 Plt Count 163 Seg Neutrophils % 73.9 Lymphocytes % 11.1 L Monocytes % 11.0 Eosinophils % 3.7 Basophils % 0.3 Absolute Neutrophils 5.8 Absolute Lymphocytes 0.9 Absolute Monocytes 0.9 Absolute Eosinophils 0.3 Absolute Basophils 0.0 Sodium 133.3 L Potassium 4.5 Chloride 98 Carbon Dioxide 24 Anion Gap 11 BUN 55 H Creatinine 4.98 H Est GFR ( Amer) 10 L Est GFR (Non-Af Amer) 9 L Glucose 158 H Calcium 8.1 L Magnesium 2.1 Total Bilirubin 0.2 AST 23 ALT 21 Alkaline Phosphatase 53 Total Protein 5.3 L Albumin 2.7 L Impressions: Renal Ultrasound 09/08/18 00:00 IMPRESSION: NORMAL RENAL AND BLADDER ULTRASOUND. Head CT 09/08/18 13:40 IMPRESSION: OLD BILATERAL LACUNAR BASAL GANGLION INFARCTS. MINIMAL CHRONIC WHITE MATTER CHANGES. OTHERWISE, NORMAL NONCONTRAST CT HEAD. EVIDENCE OF ACUTE STROKE: NO. KUB X-Ray 09/11/18 00:00 IMPRESSION: NO RADIOGRAPHIC EVIDENCE FOR ACUTE ABDOMINAL DISEASE. Chest X-Ray 09/14/18 00:00 IMPRESSION: SCATTERED FAINT AIRSPACE DISEASE. POSSIBLE SLIGHT IMPROVEMENT. Assessment & Plan - Diagnosis (1) Acute encephalopathy Is this a current diagnosis for this admission?: Yes Plan: Markedly improved to the point that I would say she is back to baseline which is also agreed upon by her daughter.Continue present lines of management. (2) Acute kidney injury Is this a current diagnosis for this admission?: Yes Plan: Currently nonoliguric. Her renal numbers still not back at baseline. Electrolites are stable with improved acidosis. She is making decent amount of urine output. It looks like she might be entering into the diuretic phase of ATN recovery. Therefore we will withhold any dialysis for today and look at her on a day-to-day basis. (3) Hyperkalemia Is this a current diagnosis for this admission?: Yes Plan: Currently resolved. (4) Hypertension Qualifiers: Hypertension type: essential hypertension Qualified Code(s): I10 - Essent ial (primary) hypertension Is this a current diagnosis for this admission?: Yes Plan: Labile. She has some good numbers interspersed with some highs numbers as well. Wonder if some of this could be secondary to the pain as well as anxiety at tacks. Monitor. (5) Hypoglycemia Is this a current diagnosis for this admission?: Yes Plan: Currently resolved. Off D10. Starting to eat better. Should continue to be monitored. (6) Metabolic acidosis Is this a current diagnosis for this admission?: Yes Plan: Resolved. (7) Type 2 diabetes mellitus Qualifiers: Diabetes mellitus [facility] insulin use: with manager long term care use Diabetes mellitus complication status: with hypoglycemia Diabetes mellitus complication detail: with coma Qualified Code(s): E11.641 - Type 2 diabetes mellitus with hypoglycemia with coma; Z79.4 - jail (current) use of insulin Plan: Close monitoring. (8) Urinary tract infection Qualifiers: Urinary tract infection type: acute pyelonephritis Qualified Code(s): N10 - Acute pyelonephritis Plan: On IV antibiotics. Monitor. (9) Hypocalcemia Is this a current diagnosis for this admission?: Yes Plan: Resolved. (10) Hyponatremia Is this a current diagnosis for this admission?: Yes Plan: Relatively stable. Continue to monitor. (11) Aspiration pneumonia Plan: Clinically she looks better. The coarse scattered crackles are much better compared to last week. She is obviously more awake alert and does not look like she is aspirating on her food and liquids like she did in the last couple of weeks.
[2018-09-16] MEDS: ACETAMINOPHEN 325 MG TABLET PO PRN (21:37)
[2018-09-16] MEDS: FAMOTIDINE 20 MG TABLET PO SCH (21:38)
[2018-09-17] MEDS: HEPARIN SOD (PORCINE) 5,000 UNIT/ML 1 ML SYRINGE SUBCUT SCH ×3 (05:18→21:01)
[2018-09-17] MEDS: LEVOTHYROXINE SODIUM 0.075 MG TABLET PO SCH (05:18)
[2018-09-17] MEDS: CYCLOBENZAPRINE HCL 10 MG TABLET PO SCH ×3 (05:18→21:00)
[2018-09-17] MEDS: MAG HYDROX/AL HYDROX/SIMETH SUSP 30 ML UDCUP PO PRN (05:23)
[2018-09-17 05:38] LABS: ABSOLUTE EOSINOPHILS # (AUTO) 0.3 10^3/uL (0.0-0.6); ABSOLUTE LYMPHOCYTES (AUTO) 1.2 10^3/uL (0.5-4.7); ABSOLUTE MONOCYTES (AUTO) 0.8 10^3/uL (0.1-1.4); ABSOLUTE NEUT (AUTO) 5.1 10^3/uL (1.7-8.2); BASOPHILS % (AUTO) 0.4 % (0-2); EOSINOPHILS % (AUTO) 4.6 % (0-6); HEMATOCRIT 26.4 % (36.0-47.0); HEMOGLOBIN 9.2 g/dL (12.0-15.5); LYMPHOCYTES % (AUTO) 15.5 % (13-45); MEAN CORPUSCULAR HEMOGLOBIN 32.9 pg (27.0-33.4); MEAN CORPUSCULAR HGB CONC 34.9 g/dL (32.0-36.0); MEAN CORPUSCULAR VOLUME 94 fl (80-97); MONOCYTES % (AUTO) 11.2 % (3-13); PLATELET COUNT 177 10^3/uL (150-450); RED CELL DISTRIBUTION WIDTH 12.7 % (11.5-14.0); SEGMENTED NEUTROPHILS % (AUTO) 68.3 % (42-78); TOTAL CELLS COUNTED % (AUTO) 100 %; WHITE BLOOD COUNT 7.5 10^3/uL (4.0-10.5)
[2018-09-17 05:55] LABS: ALANINE AMINOTRANSFERASE 25 U/L (9-52); ALBUMIN 2.7 g/dL (3.5-5.0); ALKALINE PHOSPHATASE 60 U/L (38-126); ANION GAP 11 (5-19); ASPARTATE AMINO TRANSFERASE 31 U/L (14-36); BILIRUBIN,DIRECT 0.2 mg/dL (0.0-0.4); BILIRUBIN,TOTAL 0.2 mg/dL (0.2-1.3); BLOOD UREA NITROGEN 59 mg/dL (7-20); CALCIUM 8.4 mg/dL (8.4-10.2); CARBON DIOXIDE 26 mmol/L (22-30); CHLORIDE 96 mmol/L (98-107); GLUCOSE 127 mg/dL (75-110); POTASSIUM 4.7 mmol/L (3.6-5.0); SODIUM 133.2 mmol/L (137-145); TOTAL PROTEIN 5.4 g/dL (6.3-8.2)
[2018-09-17] MEDS: MULTIVIT-STRESS FORMULA/ZINC TABLET PO SCH (10:12)
[2018-09-17] MEDS: DOCUSATE SODIUM 100 MG CAPSULE PO SCH ×2 (10:13→20:58)
[2018-09-17] MEDS: TIZANIDINE HCL 4 MG TABLET PO SCH ×2 (10:13→21:00)
[2018-09-17] MEDS: CROMOLYN SODIUM NASAL SPRAY (5.2 MG/SPRAY) 26 ML NASL SCH (10:14)
[2018-09-17] MEDS: CHOLECALCIFEROL (D3) 1,000 UNIT (25 MCG) TABLET PO SCH (10:16)
[2018-09-17] MEDS: NYSTATIN TOPICAL POWDER 15 GM TP SCH ×2 (10:17→20:52)
--- NOTE | 2018-09-17 15:47 | PDOC PROGRESS REPORT ---
Subjective Progress Note for:: 09/17/18 Subjective:: 09/17: Assumed care today. Reviewed chart and course. This is a 68-year-old female with a PMH of migraine, hypertension, hyperlipidemia, history of congestive heart failure, type 2 diabetes mellitus, hypothyroidism brought was admitted for acute encephalopathy. She was noted to be in acute renal failure. She also had hypoglycemic episodes initially. Patient was evaluated by nephrology and was initiated on hemodialysis. She did improve significantly with renal replacement. This morning, she continues to do well. She appears to be at her baseline mentation and is actually alert and oriented to person, place and time. She appears comfortable sitting on a chair. Patient denies any acute complaint. She denies chest pain or shortness of breath. She continues to have good urine output. Creatinine still elevated but continues to slowly trend down. [facility] hrology has held off on dialysis and will be continuing to reassess her renal functions to see if she will not be requiring any further renal replacement. Reason For Visit: ACUTE KIDNEY INJURY,HYPOGLYCEMIA,HYPOTHERMIA Physical Exam Vital Signs: Temp Pulse Resp BP Pulse Ox 97.3 F 67 20 161/69 H 100 09/17/18 04:00 09/17/18 14:00 09/17/18 04:00 09/17/18 04:00 09/17/18 04:00 Intake & Output 09/16/18 09/17/18 09/18/18 06:59 06:59 06:59 Intake Total 510 600 240 Output Total 1650 1875 400 Balance -1140 -1275 -160 Weight 149 lb 14.629 oz General appearance: PRESENT: no acute distress, well-developed, well-nourished Head exam: PRESENT: atraumatic, normocephalic Eye exam: PRESENT: conjunctiva pink, EOMI, PERRLA. ABSENT: scleral icterus Ear exam: PRESENT: normal external ear exam Mouth exam: PRESENT: moist, tongue midline Neck exam: ABSENT: carotid bruit, JVD, lymphadenopathy, thyromegaly Respiratory exam: PRESENT: clear to auscultation ahsan. ABSENT: rales, rhonchi, wheezes Cardiovascular exam: PRESENT: RRR. ABSENT: diastolic murmur, rubs, systolic murmur Pulses: PRESENT: normal dorsalis pedis pul GI/Abdominal exam: PRESENT: normal bowel sounds, soft. ABSENT: distended, guarding, mass, organolmegaly, rebound, tenderness Rectal exam: PRESENT: deferred Extremities exam: PRESENT: full ROM. ABSENT: calf tenderness, clubbing, pedal edema Neurological exam: PRESENT: alert, awake, oriented to person, oriented to place, oriented to time, CN II-XII grossly intact. ABSENT: motor sensory deficit Results Laboratory Results: 09/17/18 05:02 09/17/18 05:02 09/17/18 09/17/18 05:02 05:02 WBC 7.5 RBC 2.80 L Hgb 9.2 L Hct 26.4 L MCV 94 MCH 32.9 MCHC 34.9 RDW 12.7 Plt Count 177 Seg Neutrophils % 68.3 Lymphocytes % 15.5 Monocytes % 11.2 Eosinophils % 4.6 Basophils % 0.4 Absolute Neutrophils 5.1 Absolute Lymphocytes 1.2 Absolute Monocytes 0.8 Absolute Eosinophils 0.3 Absolute Basophils 0.0 Sodium 133.2 L Potassium 4.7 Chloride 96 L Carbon Dioxide 26 Anion Gap 11 BUN 59 H Creatinine 4.75 H Est GFR ( Amer) 11 L Est GFR (Non-Af Amer) 9 L Glucose 127 H Calcium 8.4 Total Bilirubin 0.2 AST 31 ALT 25 Alkaline Phosphatase 60 Total Protein 5.4 L Albumin 2.7 L Impressions: Renal Ultrasound 09/08/18 00:00 IMPRESSION: NORMAL RENAL AND BLADDER ULTRASOUND. Head CT 09/08/18 13:40 IMPRESSION: OLD BILATERAL LACUNAR BASAL GANGLION INFARCTS. MINIMAL CHRONIC WHITE MATTER CHANGES. OTHERWISE, NORMAL NONCONTRAST CT HEAD. EVIDENCE OF ACUTE STROKE: NO. KUB X-Ray 09/11/18 00:00 IMPRESSION: NO RADIOGRAPHIC EVIDENCE FOR ACUTE ABDOMINAL DISEASE. Chest X-Ray 09/14/18 00:00 IMPRESSION: SCATTERED FAINT AIRSPACE DISEASE. POSSIBLE SLIGHT IMPROVEMENT. Assessment and Plan - Diagnosis (1) Acute encephalopathy Is this a current diagnosis for this admission?: Yes Plan: Resolved. Likely a combination of acute renal failure, hypoglycemia and urinary tract infection. She is now at her baseline mentation. (2) Acute renal failure Qualifiers: Acute renal failure type: unspecified Qualified Code(s): N17.9 - Acute kidney failure, unspecified Is this a current diagnosis for this admission?: Yes Plan: Improving. Patient's last dialysis was last Sunday. She continues to make adequate urine output. Nephrology has held off on dialysis and will be continuing to reassess her renal functions to see if she will not be requiring any further renal replacement. (3) Hyperkalemia Is this a current diagnosis for this admission?: Yes Plan: Resolved. (4) Hypertension Qualifiers: Hypertension type: essential hypertension Qualified Code(s): I10 - Essential (primary) hypertension Is this a current diagnosis for this admission?: Yes Plan: Resume amlodipine today. (5) Hypoglycemia Is this a current diagnosis for this admission?: Yes Plan: Resolved. (6) Hyponatremia Is this a current diagnosis for this admission?: Yes Plan: Related to acute renal failure. Improving. (7) Hypothyroidism (acquired) Is this a current diagnosis for this admission?: Yes Plan: Stable. Continue Synthroid. (8) Type 2 diabetes mellitus Qualifiers: Diabetes mellitus terminal gauger insulin use: with terminal gauger use Diabetes mellitus complication status: with hypoglycemia Diabetes mellitus complication detail: with coma Qualified Code(s): E11.641 - Type 2 diabetes mellitus with hypoglycemia with coma; Z79.4 - retirement (current) use of insulin Is this a current diagnosis for this admission?: Yes Plan: Controlled. Hba1c is 6.1. She was on glipizide at home. In light of her recent hypoglycemia in an elderly patient with possible dementia, strongly recommend against aggressive glycemic control at this time as risk outweigh the benefits. - Time Time Spent with patient: 25-34 minutes
--- NOTE | 2018-09-17 20:26 | PDOC PROGRESS REPORT ---
Subjective Progress Note for:: 09/17/18 Subjective:: Patient was seen laying in her bed. At the time she was able to lay on her side, which is an improvement. Her daughter was at her bedside. She was more alert. At the time she denied shortness of breath, nausea, vomiting, diarrhea, constipation, or chest pain. Urine output was over 1800. Reason For Visit: ACUTE KIDNEY INJURY,HYPOGLYCEMIA,HYPOTHERMIA Physical Exam Vital Signs: Temp Pulse Resp BP Pulse Ox 98.5 F 79 20 179/71 H 100 09/17/18 19:28 09/17/18 19:28 09/17/18 19:28 09/17/18 19:28 09/17/18 19:28 Intake & Output 09/16/18 09/17/18 09/18/18 06:59 06:59 06:59 Intake Total 510 600 360 Output Total 1650 1875 800 Balance -1140 -1275 -440 Weight 68 kg General appearance: PRESENT: no acute distress, well-developed, well-nourished Mouth exam: PRESENT: moist, neck supple Neck exam: ABSENT: JVD, tracheal deviation Respiratory exam: PRESENT: rhonchi. ABSENT: clear to auscultation ahsan, crackles, rales, wheezes Cardiovascular exam: PRESENT: +S1, +S2 GI/Abdominal exam: PRESENT: distended, normal bowel sounds, tenderness - Generalized.. ABSENT: ascites, organomegaly, rigid Extremities exam: ABSENT: tenderness, +1 edema, +2 edema Musculoskeletal exam: PRESENT: normal inspection. ABSENT: tenderness Neurological exam: PRESENT: alert, awake, oriented to person, oriented to place, oriented to time, oriented to situation Skin exam: PRESENT: dry, intact, warm Results Laboratory Results: 09/17/18 05:02 09/17/18 05:02 09/17/18 09/17/18 05:02 05:02 WBC 7.5 RBC 2.80 L Hgb 9.2 L Hct 26.4 L MCV 94 MCH 32.9 MCHC 34.9 RDW 12.7 Plt Count 177 Seg Neutrophils % 68.3 Lymphocytes % 15.5 Monocytes % 11.2 Eosinophils % 4.6 Basophils % 0.4 Absolute Neutrophils 5.1 Absolute Lymphocytes 1.2 Absolute Monocytes 0.8 Absolute Eosinophils 0.3 Absolute Basophils 0.0 Sodium 133.2 L Potassium 4.7 Chloride 96 L Carbon Dioxide 26 Anion Gap 11 BUN 59 H Creatinine 4.75 H Est GFR ( Amer) 11 L Est GFR (Non-Af Amer) 9 L Glucose 127 H Calcium 8.4 Total Bilirubin 0.2 AST 31 ALT 25 Alkaline Phosphatase 60 Total Protein 5.4 L Albumin 2.7 L Impressions: Renal Ultrasound 09/08/18 00:00 IMPRESSION: NORMAL RENAL AND BLADDER ULTRASOUND. Head CT 09/08/18 13:40 IMPRESSION: OLD BILATERAL LACUNAR BASAL GANGLION INFARCTS. MINIMAL CHRONIC WHITE MATTER CHANGES. OTHERWISE, NORMAL NONCONTRAST CT HEAD. EVIDENCE OF ACUTE STROKE: NO. KUB X-Ray 09/11/18 00:00 IMPRESSION: NO RADIOGRAPHIC EVIDENCE FOR ACUTE ABDOMINAL DISEASE. Chest X-Ray 09/14/18 00:00 IMPRESSION: SCATTERED FAINT AIRSPACE DISEASE. POSSIBLE SLIGHT IMPROVEMENT. Assessment & Plan - Diagnosis (1) Acute kidney injury Is this a current diagnosis for this admission?: Yes Plan: Nonoliguric, urine output has significantly improved. Creatinine continues to trend downwards. Looks to be entering the diuresis phase of recovery. Pending labs tomorrow morning and urine output for today, I will then decide whether she needs dialysis tomorrow. (2) Acute encephalopathy Is this a current diagnosis for this admission?: Yes Plan: At baseline, much improved since admission (3) Hyperkalemia Is this a current diagnosis for this admission?: Yes Plan: Stable/resolved (4) Hypertension Qualifiers: Hypertension type: essential hypertension Qualified Code(s): I10 - Essential (primary) hypertension Is this a current diagnosis for this admission?: Yes (5) Hypoglycemia Is this a current diagnosis for this admission?: Yes Plan: Resolved (6) Metabolic acidosis Is this a current diagnosis for this admission?: Yes Plan: Stable/resolved (7) Type 2 diabetes mellitus Qualifiers: Diabetes mellitus senior living insulin use: with senior living use Diabetes mellit complication status: with hypoglycemia Diabetes mellitus complication detail: with coma Qualified Code(s): E11.641 - Type 2 diabetes mellitus with hypoglycemia with coma; Z79.4 - FDC (current) use of insulin Is this a current diagnosis for this admission?: Yes Plan: Controlled (8) Aspiration pneumonia Plan: Looks to be improving continues to have coarse crackles throughout (9) Anemia Is this a current diagnosis for this admission?: No Plan: Will order labs tomorrow - Notes Notes: Patient was reviewed with Dr. Rubi
[2018-09-17] MEDS: FAMOTIDINE 20 MG TABLET PO SCH (21:00)
[2018-09-18 05:17] LABS: ABSOLUTE RETICS # 0.018 10^6/uL (0.028-0.122); HEMATOCRIT 26.4 % (36.0-47.0); HEMOGLOBIN 8.9 g/dL (12.0-15.5); MEAN CORPUSCULAR HEMOGLOBIN 31.9 pg (27.0-33.4); MEAN CORPUSCULAR HGB CONC 33.6 g/dL (32.0-36.0); MEAN CORPUSCULAR VOLUME 95 fl (80-97); PLATELET COUNT 194 10^3/uL (150-450); RED BLOOD COUNT 2.78 10^6/uL (3.72-5.28); RED CELL DISTRIBUTION WIDTH 12.7 % (11.5-14.0); RETICULOCYTE COUNT (AUTO) 0.64 % (0.66-2.85); WHITE BLOOD COUNT 6.9 10^3/uL (4.0-10.5)
[2018-09-18 05:29] LABS: ANION GAP 10 (5-19); BLOOD UREA NITROGEN 62 mg/dL (7-20); CALCIUM 8.2 mg/dL (8.4-10.2); CARBON DIOXIDE 27 mmol/L (22-30); CHLORIDE 97 mmol/L (98-107); GLUCOSE 122 mg/dL (75-110); IRON(TIBC) 39.3 ug/dL (37-170); POTASSIUM 4.8 mmol/L (3.6-5.0); SODIUM 134.1 mmol/L (137-145)
[2018-09-18] MEDS: CYCLOBENZAPRINE HCL 10 MG TABLET PO SCH ×3 (05:33→21:02)
[2018-09-18] MEDS: LEVOTHYROXINE SODIUM 0.075 MG TABLET PO SCH (05:33)
[2018-09-18] MEDS: HEPARIN SOD (PORCINE) 5,000 UNIT/ML 1 ML SYRINGE SUBCUT SCH ×3 (05:34→21:02)
[2018-09-18 06:39] LABS: FOLATE > 20.00 ng/mL (>2.76)
[2018-09-18] MEDS: MULTIVIT-STRESS FORMULA/ZINC TABLET PO SCH (09:26)
[2018-09-18] MEDS: CHOLECALCIFEROL (D3) 1,000 UNIT (25 MCG) TABLET PO SCH (09:26)
[2018-09-18] MEDS: CROMOLYN SODIUM NASAL SPRAY (5.2 MG/SPRAY) 26 ML NASL SCH (09:27)
[2018-09-18] MEDS: DOCUSATE SODIUM 100 MG CAPSULE PO SCH ×2 (09:27→17:53)
[2018-09-18] MEDS: TIZANIDINE HCL 4 MG TABLET PO SCH ×2 (09:27→21:02)
[2018-09-18] MEDS: NYSTATIN TOPICAL POWDER 15 GM TP SCH ×2 (09:28→17:53)
--- NOTE | 2018-09-18 13:09 | PDOC PROGRESS REPORT ---
Subjective Progress Note for:: 09/18/18 Subjective:: 09/17: Assumed care today. Reviewed chart and course. This is a 68-year-old female with a PMH of migraine, hypertension, hyperlipidemia, history of congestive heart failure, type 2 diabetes mellitus, hypothyroidism brought was admitted for acute encephalopathy. She was noted to be in acute renal failure. She also had hypoglycemic episodes initially. Patient was evaluated by nephrology and was initiated on hemodialysis. She did improve significantly with renal replacement. This morning, she continues to do well. She appears to be at her baseline mentation and is actually alert and oriented to person, place and time. She appears comfortable sitting on a chair. Patient denies any acute complaint. She denies chest pain or shortness of breath. She continues to have good urine output. Creatinine still elevated but continues to slowly trend down. [facility] hrology has held off on dialysis and will be continuing to reassess her renal functions to see if she will not be requiring any further renal replacement. 09/18: No acute event overnight. She continues to do well. Renal functions continue to gradually improved. She continues to make adequate urine output. She did not require dialysis today. Anticipating discharge to [place] when renal functions are deemed acceptable for discharge by nephrology. Reason For Visit: ACUTE KIDNEY INJURY,HYPOGLYCEMIA,HYPOTHERMIA Physical Exam Vital Signs: Temp Pulse Resp BP Pulse Ox 98.5 F 75 20 162/66 H 100 09/18/18 03:37 09/18/18 07:00 09/18/18 03:37 09/18/18 03:37 09/18/18 03:37 Intake & Output 09/17/18 09/18/18 09/19/18 06:59 06:59 06:59 Intake Total 600 360 Output Total 3205 0249 Balance -1275 -2063 General appearance: PRESENT: no acute distress, well-developed, well-nourished Head exam: PRESENT: atraumatic, normocephalic Eye exam: PRESENT: conjunctiva pink, EOMI, PERRLA. ABSENT: scleral icterus Ear exam: PRESENT: normal external ear exam Mouth exam: PRESENT: moist, tongue midline Neck exam: ABSENT: carotid bruit, JVD, lymphadenopathy, thyromegaly Respiratory exam: PRESENT: clear to auscultation ahsan. ABSENT: rales, rhonchi, wheezes Cardiovascular exam: PRESENT: RRR. ABSENT: diastolic murmur, rubs, systolic murmur Pulses: PRESENT: normal dorsalis pedis pul GI/Abdominal exam: PRESENT: normal bowel sounds, soft. ABSENT: distended, guarding, mass, organolmegaly, rebound, tenderness Rectal exam: PRESENT: deferred Extremities exam: PRESENT: full ROM. ABSENT: calf tenderness, clubbing, pedal edema Neurological exam: PRESENT: alert, awake, oriented to person, oriented to place, oriented to time, oriented to situation, CN II-XII grossly intact. ABSENT: motor sensory deficit Results Laboratory Results: 09/18/18 04:51 09/18/18 04:51 09/18/18 09/18/18 04:51 04:51 WBC 6.9 RBC 2.78 L Hgb 8.9 L Hct 26.4 L MCV 95 MCH 31.9 MCHC 33.6 RDW 12.7 Plt Count 194 Retic Count (auto) 0.64 L Absolute Retic 0.018 L Sodium 134.1 L Potassium 4.8 Chloride 97 L Carbon Dioxide 27 Anion Gap 10 BUN 62 H Creatinine 4.40 H Est GFR ( Amer) 12 L Est GFR (Non-Af Amer) 10 L Glucose 122 H Calcium 8.2 L Iron 39.3 TIBC 185 L % Saturation 21 Ferritin 539.00 H Vitamin B12 832.0 Folate > 20.00 Impressions: Renal Ultrasound 09/08/18 00:00 IMPRESSION: NORMAL RENAL AND BLADDER ULTRASOUND. Head CT 09/08/18 13:40 IMPRESSION: OLD BILATERAL LACUNAR BASAL GANGLION INFARCTS. MINIMAL CHRONIC WHITE MATTER CHANGES. OTHERWISE, NORMAL NONCONTRAST CT HEAD. EVIDENCE OF ACUTE STROKE: NO. KUB X-Ray 09/11/18 00:00 IMPRESSION: NO RADIOGRAPHIC EVIDENCE FOR ACUTE ABDOMINAL DISEASE. Chest X-Ray 09/14/18 00:00 IMPRESSION: SCATTERED FAINT AIRSPACE DISEASE. POSSIBLE SLIGHT IMPROVEMENT. Assessment and Plan - Diagnosis (1) Acute encephalopathy Is this a current diagnosis for this admission?: Yes Plan: Resolved. Likely a combination of acute renal failure, hypoglycemia and urinary tract infection. She is now at her baseline mentation. (2) Acute renal failure Qualifiers: Acute renal failure type: unspecified Qualified Code(s): N17.9 - Acute kidney failure, unspecified Is this a current diagnosis for this admission?: Yes Plan: 09/17: Improving. Patient's last dialysis was last Sunday. She continues to make adequate urine output. Nephrology has held off on dialysis and will be continuing to reassess her renal functions to see if she will not be requiring any further renal replacement. 09/18: Renal functions continue to gradually improved. She continues to make adequate urine output. She did not require dialysis today. Anticipating discharge to [place] when renal functions are deemed acceptable for discharge by nephrology. (3) Hyperkalemia Is this a current diagnosis for this admission?: Yes Plan: Resolved. (4) Hypertension Qualifiers: Hypertension type: essential hypertension Qualified Code(s): I10 - Essential (primary) hypertension Is this a current diagnosis for this admission?: Yes Plan: 09/17: Resume amlodipine today. (5) Hypoglycemia Is this a current diagnosis for this admission?: Yes Plan: Resolved. (6) Hyponatremia Is this a current diagnosis for this admission?: Yes Plan: Related to acute renal failure. Improving. (7) Hypothyroidism (acquired) Is this a current diagnosis for this admission?: Yes Plan: Stable. Continue Synthroid. (8) Type 2 diabetes mellitus Qualifiers: Diabetes mellitus long-term insulin use: with termite treater helper use Diabetes mellitus complication status: with hypoglycemia Diabetes mellitus complication detail: with coma Qualified Code(s): E11.641 - Type 2 diabetes mellitus with hypoglycemia with coma; Z79.4 - terminal supervisor (current) use of insulin Is this a current diagnosis for this admission?: Yes Plan: Controlled. Hba1c is 6.1. She was on glipizide at home. In light of her recent hypoglycemia in an elderly patient with possible dementia, strongly recommend against aggressive glycemic control at this time as risk outweigh the benefits. - Time Time Spent with patient: 25-34 minutes
--- NOTE | 2018-09-18 13:56 | PDOC PROGRESS REPORT ---
Subjective Progress Note for:: 09/18/18 Subjective:: Doing well today, with her only complaint being that her left wrist hurts where the blood was drawn this morning. Other than that everything else is going well. She recently took her oxygen off because she did not feel she needed it. Urine out put increased to over 2,400mL. Reason For Visit: ACUTE KIDNEY INJURY,HYPOGLYCEMIA,HYPOTHERMIA Physical Exam Vital Signs: Temp Pulse Resp BP Pulse Ox 98.5 F 75 20 162/66 H 100 09/18/18 03:37 09/18/18 07:00 09/18/18 03:37 09/18/18 03:37 09/18/18 03:37 Intake & Output 09/17/18 09/18/18 09/19/18 06:59 06:59 06:59 Intake Total 600 360 Output Total 1875 1225 Balance -1275 -2065 General appearance: PRESENT: no acute distress, well-developed, well-nourished Mouth exam: PRESENT: moist, neck supple Neck exam: ABSENT: JVD, tracheal deviation Respiratory exam: PRESENT: clear to auscultation ahsan. ABSENT: crackles, rales, rhonchi, wheezes Cardiovascular exam: PRESENT: +S1, +S2 GI/Abdominal exam: PRESENT: distended, normal bowel sounds, tenderness - Generalized.. ABSENT: ascites, organomegaly, rigid Extremities exam: ABSENT: tenderness, +1 edema, +2 edema Musculoskeletal exam: PRESENT: normal inspection. ABSENT: tenderness Neurological exam: PRESENT: alert, awake, oriented to person, oriented to place, oriented to time, oriented to situation Skin exam: PRESENT: dry, intact, warm Results Laboratory Results: 09/18/18 04:51 09/18/18 04:51 09/18/18 09/18/18 04:51 04:51 WBC 6.9 RBC 2.78 L Hgb 8.9 L Hct 26.4 L MCV 95 MCH 31.9 MCHC 33.6 RDW 12.7 Plt Count 194 Retic Count (auto) 0.64 L Absolute Retic 0.018 L Sodium 134.1 L Potassium 4.8 Chloride 97 L Carbon Dioxide 27 Anion Gap 10 BUN 62 H Creatinine 4.40 H Est GFR ( Amer) 12 L Est GFR (Non-Af Amer) 10 L Glucose 122 H Calcium 8.2 L Iron 39.3 TIBC 185 L % Saturation 21 Ferritin 539.00 H Vitamin B12 832.0 Folate > 20.00 Impressions: Renal Ultrasound 09/08/18 00:00 IMPRESSION: NORMAL RENAL AND BLADDER ULTRASOUND. Head CT 09/08/18 13:40 IMPRESSION: OLD BILATERAL LACUNAR BASAL GANGLION INFARCTS. MINIMAL CHRONIC WHITE MATTER CHANGES. OTHERWISE, NORMAL NONCONTRAST CT HEAD. EVIDENCE OF ACUTE STROKE: NO. KUB X-Ray 09/11/18 00:00 IMPRESSION: NO RADIOGRAPHIC EVIDENCE FOR ACUTE ABDOMINAL DISEASE. Chest X-Ray 09/14/18 00:00 IMPRESSION: SCATTERED FAINT AIRSPACE DISEASE. POSSIBLE SLIGHT IMPROVEMENT. Assessment & Plan - Diagnosis (1) Acute kidney injury Is this a current diagnosis for this admission?: Yes Plan: creatinine continues to trend down and urine output continues to improve. At this time she does not need dialysis. (2) Acute encephalopathy Is this a current diagnosis for this admission?: Yes Plan: At baseline, much improved since admission (3) Hyperkalemia Is this a current diagnosis for this admission?: Yes Plan: Stable/resolved (4) Hypertension Qualifiers: Hypertension type: essential hypertension Qualified Code(s): I10 - Essent ial (primary) hypertension Is this a current diagnosis for this admission?: Yes Plan: Will look to restart her on amlodipine 5mg qd and adjust from there. She should not be restarted on benazepril just yet. (5) Hypoglycemia Is this a current diagnosis for this admission?: Yes Plan: Resolved according to the corrected calcium. (6) Metabolic acidosis Is this a current diagnosis for this admission?: Yes Plan: Stable/resolved (7) Type 2 diabetes mellitus Qualifiers: Diabetes mellitus shelter insulin use: with exterminator termite use Diabetes mellitus complication status: with hypoglycemia Diabetes mellitus complication detail: with coma Qualified Code(s): E11.641 - Type 2 diabetes mellitus with hypoglycemia with coma; Z79.4 - long-term (current) use of insulin Is this a current diagnosis for this admission?: Yes Plan: Controlled (9) Anemia Is this a current diagnosis for this admission?: No Plan: labs were pending at the time - Notes Notes: case was reviewed with Dr. Rubi
[2018-09-18] MEDS: AMLODIPINE BESYLATE 5 MG TABLET PO SCH (17:52)
[2018-09-18] MEDS: ACETAMINOPHEN 325 MG TABLET PO PRN (17:56)
[2018-09-18] MEDS: FAMOTIDINE 20 MG TABLET PO SCH (21:02)
[2018-09-19] MEDS: CYCLOBENZAPRINE HCL 10 MG TABLET PO SCH ×3 (05:20→21:31)
[2018-09-19] MEDS: HEPARIN SOD (PORCINE) 5,000 UNIT/ML 1 ML SYRINGE SUBCUT SCH ×3 (05:20→21:31)
[2018-09-19] MEDS: LEVOTHYROXINE SODIUM 0.075 MG TABLET PO SCH (05:20)
[2018-09-19] MEDS: ACETAMINOPHEN 325 MG TABLET PO PRN ×2 (05:21→14:33)
[2018-09-19 05:46] LABS: ANION GAP 13 (5-19); BLOOD UREA NITROGEN 61 mg/dL (7-20); CALCIUM 8.5 mg/dL (8.4-10.2); CARBON DIOXIDE 23 mmol/L (22-30); CHLORIDE 97 mmol/L (98-107); GLUCOSE 132 mg/dL (75-110); POTASSIUM 4.8 mmol/L (3.6-5.0); SODIUM 132.8 mmol/L (137-145)
[2018-09-19] MEDS: CHOLECALCIFEROL (D3) 1,000 UNIT (25 MCG) TABLET PO SCH (09:55)
[2018-09-19] MEDS: MULTIVIT-STRESS FORMULA/ZINC TABLET PO SCH (09:55)
[2018-09-19] MEDS: TIZANIDINE HCL 4 MG TABLET PO SCH ×2 (09:55→21:31)
[2018-09-19] MEDS: CROMOLYN SODIUM NASAL SPRAY (5.2 MG/SPRAY) 26 ML NASL SCH (09:55)
[2018-09-19] MEDS: DOCUSATE SODIUM 100 MG CAPSULE PO SCH ×2 (09:55→17:41)
[2018-09-19] MEDS: NYSTATIN TOPICAL POWDER 15 GM TP SCH ×2 (09:55→17:41)
[2018-09-19] MEDS: AMLODIPINE BESYLATE 5 MG TABLET PO SCH (09:55)
[2018-09-19] MEDS: MAG HYDROX/AL HYDROX/SIMETH SUSP 30 ML UDCUP PO PRN (11:35)
--- NOTE | 2018-09-19 12:52 | PDOC PROGRESS REPORT ---
Subjective Progress Note for:: 09/19/18 Subjective:: 09/17: Assumed care today. Reviewed chart and course. This is a 68-year-old female with a PMH of migraine, hypertension, hyperlipidemia, history of congestive heart failure, type 2 diabetes mellitus, hypothyroidism brought was admitted for acute encephalopathy. She was noted to be in acute renal failure. She also had hypoglycemic episodes initially. Patient was evaluated by nephrology and was initiated on hemodialysis. She did improve significantly with renal replacement. This morning, she continues to do well. She appears to be at her baseline mentation and is actually alert and oriented to person, place and time. She appears comfortable sitting on a chair. Patient denies any acute complaint. She denies chest pain or shortness of breath. She continues to have good urine output. Creatinine still elevated but continues to slowly trend down. [facility] and will be continuing to reassess her renal functions to see if she will not be requiring any further renal replacement. 09/18: She continues to do well. Renal functions continue to gradually improved. She continues to make adequate urine output. She did not require dialysis today. Anticipating discharge to [facility] when renal functions are deemed acceptable for discharge by nephrology. 09/19: No acute event overnight. Denies acute complaints. She is making adequate urine. Renal functions continue to improve. Anticipating clearance from nephrology in 1-2 days if she continues to have improvement of her renal functions. Reason For Visit: ACUTE KIDNEY INJURY,HYPOGLYCEMIA,HYPOTHERMIA Physical Exam Vital Signs: Temp Pulse Resp BP Pulse Ox 98.1 F 79 16 173/73 H 96 09/19/18 07:50 09/19/18 07:50 09/19/18 07:50 09/19/18 07:50 09/19/18 07:50 Intake & Output 09/18/18 09/19/18 09/20/18 06:59 06:59 06:59 Intake Total 360 510 Output Total 2425 1600 Balance -5 -1090 Weight 144 lb 9.972 oz General appearance: PRESENT: no acute distress, well-developed, well-nourished Head exam: PRESENT: atraumatic, normocephalic Eye exam: PRESENT: conjunctiva pink, EOMI, PERRLA. ABSENT: scleral icterus Ear exam: PRESENT: normal external ear exam Mouth exam: PRESENT: moist, tongue midline Neck exam: ABSENT: carotid bruit, JVD, lymphadenopathy, thyromegaly Respiratory exam: PRESENT: clear to auscultation ahsan. ABSENT: rales, rhonchi, wheezes Cardiovascular exam: PRESENT: RRR. ABSENT: diastolic murmur, rubs, systolic murmur Pulses: PRESENT: normal dorsalis pedis pul GI/Abdominal exam: PRESENT: normal bowel sounds, soft. ABSENT: distended, guarding, mass, organolmegaly, rebound, tenderness Rectal exam: PRESENT: deferred Extremities exam: PRESENT: full ROM. ABSENT: calf tenderness, clubbing, pedal edema Neurological exam: PRESENT: alert, awake, oriented to person, oriented to place, oriented to time, oriented to situation, CN II-XII grossly intact. ABSENT: motor sensory deficit Results Laboratory Results: 09/18/18 04:51 09/19/18 04:32 09/19/18 04:32 Sodium 132.8 L Potassium 4.8 Chloride 97 L Carbon Dioxide 23 Anion Gap 13 BUN 61 H Creatinine 3.61 H Est GFR ( Amer) 15 L Est GFR (Non-Af Amer) 12 L Glucose 132 H Calcium 8.5 Impressions: Renal Ultrasound 09/08/18 00:00 IMPRESSION: NORMAL RENAL AND BLADDER ULTRASOUND. Head CT 09/08/18 13:40 IMPRESSION: OLD BILATERAL LACUNAR BASAL GANGLION INFARCTS. MINIMAL CHRONIC WHITE MATTER CHANGES. OTHERWISE, NORMAL NONCONTRAST CT HEAD. EVIDENCE OF ACUTE STROKE: NO. KUB X-Ray 09/11/18 00:00 IMPRESSION: NO RADIOGRAPHIC EVIDENCE FOR ACUTE ABDOMINAL DISEASE. Chest X-Ray 09/14/18 00:00 IMPRESSION: SCATTERED FAINT AIRSPACE DISEASE. POSSIBLE SLIGHT IMPROVEMENT. Assessment and Plan - Diagnosis (1) Acute encephalopathy Is this a current diagnosis for this admission?: Yes Plan: Resolved. Likely a combination of acute renal failure, hypoglycemia and urinary tract infection. She is now at her baseline mentation. (2) Acute renal failure Qualifiers: Acute renal failure type: unspecified Qualified Code(s): N17.9 - Acute kidn ey failure, unspecified Is this a current diagnosis for this admission?: Yes Plan: 09/17: Improving. Patient's last dialysis was last Sunday. She continues to make adequate urine output. Nephrology has held off on dialysis and will be continuin g to reassess her renal functions to see if she will not be requiring any further renal replacement. 09/18: Renal functions continue to gradually improved. She continues to make adequate urine output. She did not require dialysis today. Anticipating discharge to [facility] when renal functions are deemed acceptable for discharge by nephrology. 09/19: She is making adequate urine. Renal functions continue to improve. Anticipating clearance from nephrology in 1-2 days if she continues to have i mprovement of her renal functions. (3) Hyperkalemia Is this a current diagnosis for this admission?: Yes Plan: Resolved. (4) Hypertension Qualifiers: Hypertension type: essential hypertension Qualified Code(s): I10 - Essential (primary) hypertension Is this a current diagnosis for this admission?: Yes Plan: 09/17: Resume amlodipine today. 09/19: Increase amlodipine from 5 t 10 mg daily. (5) Hypoglycemia Is this a current diagnosis for this admission?: Yes Plan: Resolved. (6) Hyponatremia Is this a current diagnosis for this admission?: Yes Plan: Related to acute renal failure. Improving. (7) Hypothyroidism (acquired) Is this a current diagnosis for this admission?: Yes Plan: Stable. Continue Synthroid. (8) Type 2 diabetes mellitus Qualifiers: Diabetes mellitus tank terminal gauger insulin use: with skilled nursing use Diabetes mellitus complication status: with hypoglycemia Diabetes mellitus complication detail: with coma Qualified Code(s): E11.641 - Type 2 diabetes mellitus with hypoglycemia with coma; Z79.4 - correction (current) use of insulin Is this a current diagnosis for this admission?: Yes Plan: Controlled. Hba1c is 6.1. She was on glipizide at home. In light of her recent hypoglycemia in an elderly patient with possible dementia, strongly recommend against aggressive glycemic control at this time as risk outweigh the benefits.
--- NOTE | 2018-09-19 13:50 | PDOC PROGRESS REPORT ---
Subjective Progress Note for:: 09/19/18 Subjective:: Patient is doing fine and making good amount of urine output. For the past 24- hour she made about 1600 mL of urine. However her appetite is still poor as confirmed by her daughter at bedside. She also does not drink much fluids either. Her fluid balance has been negative for the last few days. She denies any nausea, vomiting, chest pains no shortness of breath. Blood pressure is still not optimally controlled. Reason For Visit: ACUTE KIDNEY INJURY,HYPOGLYCEMIA,HYPOTHERMIA Physical Exam Vital Signs: Temp Pulse Resp BP Pulse Ox 98.1 F 79 16 173/73 H 96 09/19/18 07:50 09/19/18 07:50 09/19/18 07:50 09/19/18 07:50 09/19/18 07:50 Intake & Output 09/18/18 09/19/18 09/20/18 06:59 06:59 06:59 Intake Total 360 510 Output Total 2425 1600 Balance -2064 Weight 65.6 kg Exam: General appearance: PRESENT: no acute distress, cooperative, well-developed, well-nourished Head exam: PRESENT: atraumatic, normocephalic Eye exam: PRESENT: conjunctiva pale, PERRLA. ABSENT: scleral icterus Neck exam: ABSENT: JVD Respiratory exam: PRESENT: Diminished breath sounds. ABSENT: crackles, rales, rhonchi, unlabored, wheezes Cardiovascular exam: PRESENT: Regular rate rhythm -+S1, +S2. ABSENT: diastolic murmur, systolic murmur GI/Abdominal exam: PRESENT: normal bowel sounds, soft. ABSENT: guarding, mass, tenderness Extremities exam: ABSENT: No edema Neurological exam: PRESENT: alert, awake, oriented to person, place and time. Skin exam: PRESENT: dry, warm, Cardiovascular exam: PRESENT: +S1, +S2 GI/Abdominal exam: PRESENT: distended, normal bowel sounds, tenderness - Generalized.. ABSENT: ascites, organomegaly, rigid Results Laboratory Results: 09/18/18 04:51 09/19/18 04:32 09/19/18 04:32 Sodium 132.8 L Potassium 4.8 Chloride 97 L Carbon Dioxide 23 Anion Gap 13 BUN 61 H Creatinine 3.61 H Est GFR ( Amer) 15 L Est GFR (Non-Af Amer) 12 L Glucose 132 H Calcium 8.5 Impressions: Renal Ultrasound 09/08/18 00:00 IMPRESSION: NORMAL RENAL AND BLADDER ULTRASOUND. Head CT 09/08/18 13:40 IMPRESSION: OLD BILATERAL LACUNAR BASAL GANGLION INFARCTS. MINIMAL CHRONIC WHITE MATTER CHANGES. OTHERWISE, NORMAL NONCONTRAST CT HEAD. EVIDENCE OF ACUTE STROKE: NO. KUB X-Ray 09/11/18 00:00 IMPRESSION: NO RADIOGRAPHIC EVIDENCE FOR ACUTE ABDOMINAL DISEASE. Chest X-Ray 09/14/18 00:00 IMPRESSION: SCATTERED FAINT AIRSPACE DISEASE. POSSIBLE SLIGHT IMPROVEMENT. Assessment & Plan - Diagnosis (1) Acute kidney injury Is this a current diagnosis for this admission?: Yes Plan: Patient has good urine output for the last few days and kidney function is a slowly improving every day. It seems to be on diuretic phase of ATN. Advised and encouraged the patient to increase oral fluid intake as well as food intake. Discussed the importance of maintaining euvolemia. As it stands now she is negative fluid balance for the last few days and we do not want her to going to prerenal azotemia as this may induce the kidney function to get worse again. If her trend of improvement of kidney function continues she most likely will not need any further hemodialysis treatment but will reevaluate tomorrow. Continue to monitor kidney function. (2) Hypertension Qualifiers: Hypertension type: essential hypertension Qualified Code(s): I10 - Essential (primary) hypertension Is this a current diagnosis for this admission?: Yes Plan: Not optimally controlled. Amlodipine was increased to 10 mg daily today. (3) Anemia Is this a current diagnosis for this admission?: Yes Plan: Iron panel is good. Will consider Procrit or Retacrit once blood pressure is improved. (4) Hyponatremia Is this a current diagnosis for this admission?: Yes Plan: Mild, unchanged and stable. (5) Decreased appetite Is this a current diagnosis for this admission?: Yes Plan: Try Megace suspension daily. (6) Type 2 diabetes mellitus Qualifiers: Diabetes mellitus rn long term care insulin use: with rn long term care use Diabetes mellitus complication status: with hypoglycemia Diabetes mellitus complication detail: with coma Qualified Code(s): E11.641 - Type 2 diabetes mellitus with hypoglycemia with coma; Z79.4 - [facility] (current) use of insulin Is this a current diagnosis for this admission?: Yes - Time Time with patient: 15-25 minutes
[2018-09-19] MEDS: MEGESTROL ACETATE SUSP 400 MG/10 ML UDCUP PO SCH (15:44)
[2018-09-19] MEDS: FAMOTIDINE 20 MG TABLET PO SCH (21:31)
[2018-09-20] MEDS: ACETAMINOPHEN 325 MG TABLET PO PRN (05:11)
[2018-09-20] MEDS: LEVOTHYROXINE SODIUM 0.075 MG TABLET PO SCH (05:11)
[2018-09-20] MEDS: HEPARIN SOD (PORCINE) 5,000 UNIT/ML 1 ML SYRINGE SUBCUT SCH ×2 (05:11→13:23)
[2018-09-20] MEDS: CYCLOBENZAPRINE HCL 10 MG TABLET PO SCH ×2 (05:11→13:23)
[2018-09-20 05:38] LABS: ABSOLUTE EOSINOPHILS # (AUTO) 0.3 10^3/uL (0.0-0.6); ABSOLUTE LYMPHOCYTES (AUTO) 1.2 10^3/uL (0.5-4.7); ABSOLUTE MONOCYTES (AUTO) 0.5 10^3/uL (0.1-1.4); ABSOLUTE NEUT (AUTO) 4.9 10^3/uL (1.7-8.2); BASOPHILS % (AUTO) 0.3 % (0-2); EOSINOPHILS % (AUTO) 4.5 % (0-6); HEMATOCRIT 28.2 % (36.0-47.0); HEMOGLOBIN 9.7 g/dL (12.0-15.5); LYMPHOCYTES % (AUTO) 17.8 % (13-45); MEAN CORPUSCULAR HEMOGLOBIN 32.1 pg (27.0-33.4); MEAN CORPUSCULAR HGB CONC 34.2 g/dL (32.0-36.0); MEAN CORPUSCULAR VOLUME 94 fl (80-97); MONOCYTES % (AUTO) 7.1 % (3-13); PLATELET COUNT 242 10^3/uL (150-450); RED CELL DISTRIBUTION WIDTH 12.4 % (11.5-14.0); SEGMENTED NEUTROPHILS % (AUTO) 70.3 % (42-78); TOTAL CELLS COUNTED % (AUTO) 100 %
[2018-09-20 05:55] LABS: ANION GAP 10 (5-19); BLOOD UREA NITROGEN 59 mg/dL (7-20); CALCIUM 8.6 mg/dL (8.4-10.2); CARBON DIOXIDE 23 mmol/L (22-30); CHLORIDE 99 mmol/L (98-107); GLUCOSE 158 mg/dL (75-110); POTASSIUM 5.2 mmol/L (3.6-5.0); SODIUM 131.6 mmol/L (137-145)
[2018-09-20] MEDS: DOCUSATE SODIUM 100 MG CAPSULE PO SCH (09:41)
[2018-09-20] MEDS: MULTIVIT-STRESS FORMULA/ZINC TABLET PO SCH (09:41)
[2018-09-20] MEDS: CHOLECALCIFEROL (D3) 1,000 UNIT (25 MCG) TABLET PO SCH (09:41)
[2018-09-20] MEDS: MEGESTROL ACETATE SUSP 400 MG/10 ML UDCUP PO SCH (09:42)
[2018-09-20] MEDS: CROMOLYN SODIUM NASAL SPRAY (5.2 MG/SPRAY) 26 ML NASL SCH (09:42)
[2018-09-20] MEDS: NYSTATIN TOPICAL POWDER 15 GM TP SCH (09:42)
[2018-09-20] MEDS: TIZANIDINE HCL 4 MG TABLET PO SCH (09:42)
[2018-09-20 09:50] VITALS: BP 160/73
[2018-09-20] MEDS ORDERED: AMLODIPINE BESYLATE 5 MG TABLET PO SCH (10:00)
[2018-09-20] MEDS ORDERED: AMLODIPINE BESYLATE 10 MG TABLET PO SCH (10:00)
[2018-09-20] MEDS ORDERED: NORMAL SALINE 1000 ML 1,000 ML IV ONE (11:00)
--- NOTE | 2018-09-20 11:07 | PDOC PROGRESS REPORT ---
Subjective Progress Note for:: 09/20/18 Subjective:: Patient is doing fine. She continues to have physical therapy while here in the hospital. The only thing is her appetite is still not as good but the daughter would like to continue with the Megace that they started yesterday because she ate a little bit last dinner and this morning. She is also not drinking enough fluids because her intake yesterday was only about 422 and her urine output is about 2450 mL. I discussed with her including her 2 daughters at bedside that is important to keep up with her fluid intake otherwise she might end up getting dehydrated when she gets home or go to rehab after this hospitalization and end up with acute kidney injury again. They understood. Her blood pressure is also not optimal. Patient and daughters also discuss if the patient would actually go to rehab or home. I recommended that the patient go to rehab for at least couple of weeks for her to get physical therapy and regain strength. Reason For Visit: ACUTE KIDNEY INJURY,HYPOGLYCEMIA,HYPOTHERMIA Physical Exam Vital Signs: Temp Pulse Resp BP Pulse Ox 97.8 F 71 16 160/73 H 97 09/20/18 07:54 09/20/18 07:54 09/20/18 07:54 09/20/18 07:54 09/20/18 07:54 Intake & Output 09/19/18 09/20/18 09/21/18 06:59 06:59 06:59 Intake Total 510 422 Output Total 1600 2450 Balance -1089 Weight 65.6 kg 65.8 kg Exam: General appearance: PRESENT: no acute distress, cooperative, well-developed, well-nourished Head exam: PRESENT: atraumatic, normocephalic Eye exam: PRESENT: conjunctiva pale, PERRLA. ABSENT: scleral icterus Neck exam: ABSENT: JVD Respiratory exam: PRESENT: Diminished breath sounds. ABSENT: crackles, rales, rhonchi, unlabored, wheezes Cardiovascular exam: PRESENT: Regular rate rhythm -+S1, +S2. ABSENT: diastolic murmur, systolic murmur GI/Abdominal exam: PRESENT: normal bowel sounds, soft. ABSENT: guarding, mass, tenderness Extremities exam: ABSENT: No edema Neurological exam: PRESENT: alert, awake, oriented to person, place and time. Skin exam: PRESENT: dry, warm, Cardiovascular exam: PRESENT: +S1, +S2 GI/Abdominal exam: PRESENT: distended, normal bowel sounds, tenderness - Generalized.. ABSENT: ascites, organomegaly, rigid Results Laboratory Results: 09/20/18 05:18 09/20/18 05:18 09/20/18 09/20/18 05:18 05:18 WBC 7.0 RBC 3.00 L Hgb 9.7 L Hct 28.2 L MCV 94 MCH 32.1 MCHC 34.2 RDW 12.4 Plt Count 242 Seg Neutrophils % 70.3 Lymphocytes % 17.8 Monocytes % 7.1 Eosinophils % 4.5 Basophils % 0.3 Absolute Neutrophils 4.9 Absolute Lymphocytes 1.2 Absolute Monocytes 0.5 Absolute Eosinophils 0.3 Absolute Basophils 0.0 Sodium 131.6 L Potassium 5.2 H Chloride 99 Carbon Dioxide 23 Anion Gap 10 BUN 59 H Creatinine 3.25 H Est GFR ( Amer) 17 L Est GFR (Non-Af Amer) 14 L Glucose 158 H Calcium 8.6 Impressions: Renal Ultrasound 09/08/18 00:00 IMPRESSION: NORMAL RENAL AND BLADDER ULTRASOUND. Head CT 09/08/18 13:40 IMPRESSION: OLD BILATERAL LACUNAR BASAL GANGLION INFARCTS. MINIMAL CHRONIC WHITE MATTER CHANGES. OTHERWISE, NORMAL NONCONTRAST CT HEAD. EVIDENCE OF ACUTE STROKE: NO. KUB X-Ray 09/11/18 00:00 IMPRESSION: NO RADIOGRAPHIC EVIDENCE FOR ACUTE ABDOMINAL DISEASE. Chest X-Ray 09/14/18 00:00 IMPRESSION: SCATTERED FAINT AIRSPACE DISEASE. POSSIBLE SLIGHT IMPROVEMENT. Assessment & Plan - Diagnosis (1) Acute kidney injury Is this a current diagnosis for this admission?: Yes Plan: Patient has good urine output for the last few days and kidney function is a slowly improving every day. It seems to be on diuretic phase of ATN. Advised and encouraged the patient to increase oral fluid intake as well as food intake. Discussed the importance of maintaining euvolemia. As it stands now she is negative fluid balance for the last few days and we do not want her to going to prerenal azotemia as this may induce the kidney function to get worse again. If her trend of improvement of kidney function continues she most likely will not need any further hemodialysis treatment but will reevaluate tomorrow. Continue to monitor kidney function. I will give her a liter of IV fluids today prior to transfer to a rehab facility. Since the patient's kidney function continues to improve and the patient is clinically well I think she can be transferred to a rehab facility later today but reiterated to the patient and her daughter the importance of good oral food and fluid intake. (2) Hypertension Qualifiers: Hypertension type: essential hypertension Qualified Code(s): I10 - Essential (primary) hypertension Is this a current diagnosis for this admission?: Yes Plan: Not optimally controlled. Amlodipine was increased to 10 mg daily today. She was previously on benazepril prior to admission. Since we do not know the patient's new baseline kidney function is I will continue to hold this still. Start carvedilol 6.25 mg p.o. twice daily starting today. (3) Anemia Is this a current diagnosis for this admission?: Yes Plan: Iron panel is good. Hemoglobin is actually improved today. We will give her reticulocyte with of 1 dose prior to discharge to help with anemia. (4) Hyponatremia Is this a current diagnosis for this admission?: Yes Plan: Mild, unchanged and stable. (5) Decreased appetite Is this a current diagnosis for this admission?: Yes Plan: Try Megace suspension daily. Continue upon discharge. Can be taken as needed. (6) Type 2 diabetes mellitus Qualifiers: Diabetes mellitus shelter insulin use: with intermediate teacher use Diabetes mellitus complication status: with hypoglycemia Diabetes mellitus complication detail: with coma Qualified Code(s): E11.641 - Type 2 diabetes mellitus with hypoglycemia with coma; Z79.4 - nursing home (current) use of insulin Is this a current diagnosis for this admission?: Yes (7) Hyperkalemia Is this a current diagnosis for this admission?: Yes Plan: Mild. No need of any medicine for now. - Notes Notes: Discussed with daughter although earlier today. I think patient can be transferred to rehab at the end of the day today after the bag of IV fluids. - Time Time with patient: Greater than 35 minutes
[2018-09-20] MEDS ORDERED: EPOETIN ALFA-EPBX 10,000 UNIT/ML VIAL (NON-ESRD) SUBCUT ONE (11:15)
[2018-09-20] MEDS ORDERED: CARVEDILOL 6.25 MG TABLET PO SCH (11:30)
[2018-09-20] MEDS ORDERED: CONTAINER EMPTY IV PRN ×2 (12:28→12:30)
[2018-09-20] MEDS ORDERED: EPOETIN ALFA EPBX IV PRN ×2 (12:28→12:30)
--- NOTE | 2018-09-20 13:28 | PDOC TRANSFER SUMMARY ---
General - Admit/Disc Date/PCP Admission Date/Primary Care Provider: 09/08/18 16:42 RUFINO NEWMAN MD Discharge Date: 09/20/18 - Discharge Diagnosis (1) Acute encephalopathy Is this a current diagnosis for this admission?: Yes (2) Acute renal failure Is this a current diagnosis for this admission?: Yes (3) Hyperkalemia Is this a current diagnosis for this admission?: Yes (4) Hypertension Is this a current diagnosis for this admission?: Yes (5) Hypoglycemia Is this a current diagnosis for this admission?: Yes (6) Hyponatremia Is this a current diagnosis for this admission?: Yes (7) Hypothyroidism (acquired) Is this a current diagnosis for this admission?: Yes (8) Type 2 diabetes mellitus Is this a current diagnosis for this admission?: Yes - Additional Information Resuscitation Status: Full Code Prescriptions: Amlodipine Besylate [Norvasc 10 mg Tablet] 10 mg PO DAILY #30 tablet Carvedilol [Coreg 6.25 mg Tablet] 6.25 mg PO Q12 #60 tablet Megestrol Acetate [Megace Sybil 400 mg/10 ml Udcup] 800 mg PO DAILY #2 udc Home Medications: Atorvastatin Calcium 20 mg PO DAILY 05/11/12 Cyclobenzaprine HCl 10 mg PO Q8HP PRN 05/11/12 Levothyroxine Sodium [Synthroid 0.075 mg Tablet] 0.075 mg PO Q6AM 05/11/12 Lutein/Zeaxanthin [Lutein-Zeaxanthin 25-5 mg Sfgl] 1 each PO DAILY 04/03/13 Cholecalciferol (Vitamin D3) [Vitamin D3 1000 Unit Tablet] 2,000 unit PO DAILY 01/17/17 Cinnamon Bark [Cinnamon] 3,000 mg PO DAILY 01/17/17 Hydrocodone Bit/Acetaminophen [Hydrocodon-Acetaminophn 10-325] 1 each PO Q4HP PRN 09/08/18 Iron Ps Complex/B12/Folic Acid [Poly-Iron 150 Forte Capsule] 1 each PO DAILY 09/08/18 Vit B1 Mn/B2/B3/B5/B6/B12/C/FA [B Complex with Vitamin C Tab] 1 each PO DAILY 09/08/18 Amlodipine Besylate [Norvasc 10 mg Tablet] 10 mg PO DAILY #30 tablet 09/20/18 Carvedilol [Coreg 6.25 mg Tablet] 6.25 mg PO Q12 #60 tablet 09/20/18 Megestrol Acetate [Megace Sybil 400 mg/10 ml Udcup] 800 mg PO DAILY #2 udc 09/20/18 Tizanidine HCl [Zanaflex 4 mg Tablet] 4 mg PO Q12 PRN #0 09/20/18 History of Present Illness Admission Date/PCP: 09/08/18 16:42 RUFINO NEWMAN MD History of Present Illness: Admitting hospitalist's H&P: ELOY TOVAR is a 68 year old female patient with past medical hi story of migraine, hypertension, hyperlipidemia, history of congestive heart failure, type 2 diabetes mellitus, hypothyroidism brought with chief complaint of altered mental status. Patient is not able to give meaningful history. History is obtained from the ER attending note and from her daughter who is in the room during my encounter. Daughter at bedside states that she last heard from the patient [id number] yesterday evening after giving the patient to slices of [employer]. Daughter states that she did not her from the patient this morning so she went to her home to check on the patient and found her sitting in the same chair as the night before. She states the patient was not moving and had a blank stare on her face. Family states that patient type is currently only eats one meal a day. ER attending mentions in her note that patient took too much insulin but the daughter told me patient takes only glipizide. Daughter expressed concern of the patient developing dementia due to the patient is recent forgetfulness. EMS found the patient her blood glucose level was 45. In ER patient also found to be hypothermic with core temperature of 93. Her CT scan of the head is negative for acute stroke but she has old lacunar infarcts. Chest x-ray no acute cardiopulmonary findings. Her blood work is remarkable for acute kidney injury with BUN of 76 and creatinine of 7.69. Her urine analysis positive for nitrite, leukocyte esterase and pyuria. Hospital Course Hospital Course: This is a 68-year-old female with a PMH of migraine, hypertension, hyperlipidemia, history of congestive heart failure, type 2 diabetes mellitus, hypothyroidism brought was admitted for acute encephalopathy. She was noted to be in acute renal failure. She also had hypoglycemic episodes initially. Patient was evaluated by nephrology and was initiated on hemodialysis. She did improve significantly with renal replacement. Her renal functions did slowly but gradually recover. She is making good urine outout and did not require dialysis. Last HD was on 09/13. 1. Acute encephalopathy. Resolved. Likely a combination of acute renal failure, hypoglycemia and urinary tract infection. She is now at her baseline mentation. 2. Acute renal failure. Renal functions continue to creatinine is down to 3.2. She continues to make adequate urine output. She will continue to closely follow-up with nephrology but will not require renal replacement at this time. 3. Hypertension. She was on benazepril-amlodipine at home. Resumed amlodipine and increased dose to 10 mg daily. Also added carvedilol. 4. Diabetes mellitus. Controlled. Hba1c is 6.1. She was on glipizide at home. In light of her recent hypoglycemia in an elderly patient with possible dem entia, strongly recommend against aggressive glycemic control at this time as risk outweigh the benefits. She will continue to follow-up on her glycemic control with PCP and reinitiate diabetic regimen if deemed necessary. Physical Exam Vital Signs: Temp Pulse Resp BP Pulse Ox 97.8 F 71 16 160/73 H 97 09/20/18 07:54 09/20/18 07:54 09/20/18 07:54 09/20/18 07:54 09/20/18 07:54 Intake & Output 09/19/18 09/20/18 09/21/18 06:59 06:59 06:59 Intake Total 510 422 Output Total 1600 2450 Balance -1089 -2027 Weight 144 lb 9.972 oz 145 lb 1.027 oz General appearance: PRESENT: no acute distress, well-developed, well-nourished Head exam: PRESENT: atraumatic, normocephalic Eye exam: PRESENT: conjunctiva pink, EOMI, PERRLA. ABSENT: scleral icterus Ear exam: PRESENT: normal external ear exam Mouth exam: PRESENT: moist, tongue midline Neck exam: ABSENT: carotid bruit, JVD, lymphadenopathy, thyromegaly Respiratory exam: PRESENT: clear to auscultation ahsan. ABSENT: rales, rhonchi, wheezes Cardiovascular exam: PRESENT: RRR. ABSENT: diastolic murmur, rubs, systolic murmur Pulses: PRESENT: normal dorsalis pedis pul Vascular exam: PRESENT: normal capillary refill GI/Abdominal exam: PRESENT: normal bowel sounds, soft. ABSENT: distended, guarding, mass, organolmegaly, rebound, tenderness Rectal exam: PRESENT: deferred Extremities exam: PRESENT: full ROM. ABSENT: calf tenderness, clubbing, pedal edema Neurological exam: PRESENT: alert, awake, oriented to person, oriented to place, oriented to time, oriented to situation, CN II-XII grossly intact. ABSENT: motor sensory deficit Results Laboratory Results: 09/20/18 05:18 09/20/18 05:18 09/20/18 09/20/18 05:18 05:18 WBC 7.0 RBC 3.00 L Hgb 9.7 L Hct 28.2 L MCV 94 MCH 32.1 MCHC 34.2 RDW 12.4 Plt Count 242 Seg Neutrophils % 70.3 Lymphocytes % 17.8 Monocytes % 7.1 Eosinophils % 4.5 Basophils % 0.3 Absolute Neutrophils 4.9 Absolute Lymphocytes 1.2 Absolute Monocytes 0.5 Absolute Eosinophils 0.3 Absolute Basophils 0.0 Sodium 131.6 L Potassium 5.2 H Chloride 99 Carbon Dioxide 23 Anion Gap 10 BUN 59 H Creatinine 3.25 H Est GFR ( Amer) 17 L Est GFR (Non-Af Amer) 14 L Glucose 158 H Calcium 8.6 Impressions: Renal Ultrasound 09/08/18 00:00 IMPRESSION: NORMAL RENAL AND BLADDER ULTRASOUND. Head CT 09/08/18 13:40 IMPRESSION: OLD BILATERAL LACUNAR BASAL GANGLION INFARCTS. MINIMAL CHRONIC WHITE MATTER CHANGES. OTHERWISE, NORMAL NONCONTRAST CT HEAD. EVIDENCE OF ACUTE STROKE: NO. KUB X-Ray 09/11/18 00:00 IMPRESSION: NO RADIOGRAPHIC EVIDENCE FOR ACUTE ABDOMINAL DISEASE. Chest X-Ray 09/14/18 00:00 IMPRESSION: SCATTERED FAINT AIRSPACE DISEASE. POSSIBLE SLIGHT IMPROVEMENT. Qualifiers - * PATIENT BEING DISCHARGED WITH ANY OF THE FOLLOWING DIAGNOSIS: No Acute Heart Failure - Is this a Heart Failure Patient?: No LVEF < 40%?: No- if no continue to question #3 3. Anticoagulant therapy for permanect/persistent/paraoxysmal Afib or Aflutter: N/A
== END 2018-09-20 16:26 | DRG 637 ==
LOC: ER 12:23 → EH 16:42 → 3W 20:05
PROVIDERS: ADMIT Internal Medicine; ATTEND Internal Medicine
PROC: 0JHM3XZ Insertion of Tunneled Vascular Access Device into Left Upper Leg Subcutaneous Tissue and Fascia, Percutaneous Approach (ICD-10-PCS; principal; 2018-09-10)
PROC: 5A1D70Z Performance of Urinary Filtration, Intermittent, Less than 6 Hours Per Day (ICD-10-PCS; 2018-09-10)
DX: E11.641 Type 2 diabetes mellitus with hypoglycemia with coma (principal); J69.0 Pneumonitis due to inhalation of food and vomit; E87.2 Acidosis; N10 Acute pyelonephritis; N17.9 Acute kidney failure, unspecified; G93.49 Other encephalopathy; E87.1 Hypo-osmolality and hyponatremia; G40.509 Epileptic seizures related to external causes, not intractable, without status epilepticus; R68.0 Hypothermia, not associated with low environmental temperature; F03.90 Unspecified dementia, unspecified severity, without behavioral disturbance, psychotic disturbance, mood disturbance, and anxiety; Z88.5 Allergy status to narcotic agent; Z88.0 Allergy status to penicillin; Z88.2 Allergy status to sulfonamides; Z91.041 Radiographic dye allergy status; E78.5 Hyperlipidemia, unspecified; I11.0 Hypertensive heart disease with heart failure; I50.9 Heart failure, unspecified; G43.909 Migraine, unspecified, not intractable, without status migrainosus; I44.0 Atrioventricular block, first degree; Z79.4 Long term (current) use of insulin; L89.302 Pressure ulcer of unspecified buttock, stage 2; L89.102 Pressure ulcer of unspecified part of back, stage 2; E03.9 Hypothyroidism, unspecified; E87.5 Hyperkalemia; B96.20 Unspecified Escherichia coli [E. coli] as the cause of diseases classified elsewhere; D63.1 Anemia in chronic kidney disease
CPT/HCPCS: 36415; 36556; 36600; 70450; 71045; 71046; 74018; 76770; 76937; 80048; 80053; 80074; 81001; 82330; 82607; 82728; 82746; 82803; 82962; 83036; 83540; 83550; 83605; 83735; 84100; 84439; 84443; 84481; 85025; 85027; 85045; 85610; 86317; 86704; 87040; 87077; 87086; 87088; 87186; 87340; 93005; 93010; 99291; C1752; J0360; J0610; J1165; J1610; J1644; J1940; J1953; J1956; J2060; J2270; J2405; J2765; J3475; J3490; J7030; P9047; Q5105

== ENCOUNTER → 2018-11-01 | Outpatient (CLI) | payer MEDICARE, BC ==
[2018-11-01 12:36] LABS: ABSOLUTE EOSINOPHILS # (AUTO) 0.1 10^3/uL (0.0-0.6); ABSOLUTE MONOCYTES (AUTO) 0.6 10^3/uL (0.1-1.4); ABSOLUTE NEUT (AUTO) 2.8 10^3/uL (1.7-8.2); BASOPHILS % (AUTO) 0.6 % (0-2); HEMATOCRIT 26.3 % (36.0-47.0); HEMOGLOBIN 9.3 g/dL (12.0-15.5); LYMPHOCYTES % (AUTO) 36.6 % (13-45); MEAN CORPUSCULAR HEMOGLOBIN 32.5 pg (27.0-33.4); MEAN CORPUSCULAR HGB CONC 35.5 g/dL (32.0-36.0); MEAN CORPUSCULAR VOLUME 92 fl (80-97); MONOCYTES % (AUTO) 10.6 % (3-13); PLATELET COUNT 240 10^3/uL (150-450); RED BLOOD COUNT 2.87 10^6/uL (3.72-5.28); RED CELL DISTRIBUTION WIDTH 13.2 % (11.5-14.0); SEGMENTED NEUTROPHILS % (AUTO) 50.2 % (42-78); TOTAL CELLS COUNTED % (AUTO) 100 %; WHITE BLOOD COUNT 5.5 10^3/uL (4.0-10.5)
[2018-11-01 12:53] LABS: AMORPHOUS SEDIMENT,URINE TRACE /HPF; APPEARANCE,URINE CLOUDY; BILIRUBIN,URINE NEGATIVE (NEGATIVE); COLOR,URINE YELLOW; GLUCOSE, URINE NEGATIVE (NEGATIVE); KETONES,URINE NEGATIVE (NEGATIVE); LEUKOCYTE ESTERASE,URINE LARGE (NEGATIVE); NITRITE,URINE NEGATIVE (NEGATIVE); PROTEIN,URINE NEGATIVE (NEGATIVE); URINE SPECIFIC GRAVITY 1.016; UROBILINOGEN,URINE NEGATIVE mg/dL (<2.0)
[2018-11-01 13:36] LABS: ALBUMIN 4.6 g/dL (3.5-5.0); ALKALINE PHOSPHATASE 62 U/L (38-126); ANION GAP 12 (5-19); ASPARTATE AMINO TRANSFERASE 27 U/L (14-36); BILIRUBIN,DIRECT 0.2 mg/dL (0.0-0.4); BILIRUBIN,TOTAL 0.3 mg/dL (0.2-1.3); BLOOD UREA NITROGEN 17 mg/dL (7-20); CALCIUM 9.5 mg/dL (8.4-10.2); CARBON DIOXIDE 23 mmol/L (22-30); CHLORIDE 92 mmol/L (98-107); GLUCOSE 108 mg/dL (75-110); IRON(TIBC) 98.5 ug/dL (37-170); PHOSPHORUS 5.5 mg/dL (2.5-4.5); POTASSIUM 4.7 mmol/L (3.6-5.0); TOTAL PROTEIN 7.8 g/dL (6.3-8.2)
[2018-11-04 16:37] LABS: A/G RATIO 1.2 (0.7-1.7); ALBUMIN 2 3.8 g/dL (2.9-4.4); ALPHA-2-GLOBULIN 2 0.9 g/dL (0.4-1.0); BETA GLOBULINS 1.1 g/dL (0.7-1.3); GLOBULIN TOTAL 3.3 g/dL (2.2-3.9); MONOCLONAL SPIKE Not Observed g/dL (Not Observ); PROTEIN TOTAL SERUM 7.1 g/dL (6.0-8.5)
== END ==
LOC: OD 11:38
PROVIDERS: ATTEND Internal Medicine Nephrology
DX: I12.9 Hypertensive chronic kidney disease with stage 1 through stage 4 chronic kidney disease, or unspecified chronic kidney disease (principal); N18.4 Chronic kidney disease, stage 4 (severe); D63.1 Anemia in chronic kidney disease
CPT/HCPCS: 36415; 80053; 81001; 82728; 83540; 83550; 83735; 83970; 84100; 84165; 84466; 85025

== ENCOUNTER → 2018-11-08 | Outpatient (CLI) | payer MEDICARE, BC | LOC: OD 14:04 | PROVIDERS: ATTEND Physician Assistant Medical | DX: E87.1 Hypo-osmolality and hyponatremia (principal) | CPT/HCPCS: 36415; 84295 ==

== ENCOUNTER 2018-12-02 14:42 | Emergency (ER) | payer MEDICARE, BC ==
--- NOTE | 2018-12-02 15:36 | ER Document Report ---
ED Medical Screen (RME) - General Chief Complaint: Fall Stated Complaint: FALL-RIB/ARM/SHOULDER PAIN Time Seen by Provider: 12/02/18 15:23 Primary Care Provider: MARY ELLEN RENEE PA-C [Primary Care Provider] - Follow up as needed Mode of Arrival: Wheelchair Information source: Patient, Relative - Daughter x2 Notes: Patient is a 68-year-old female presenting to the emergency department after having multiple episodes of nausea, vomiting and diarrhea this morning and having a syncopal episode on the toilet. Her daughters report that she is complaining of pain to her left side. She denies any illness prior to this morning when all of the symptoms started. Unable to get a good physical examination due to patient's position in a wheelchair in triage, will defer imaging until patient is seen by provider in the back. Will start basic syncope work-up here. Exam: Patient alert, oriented, answering all questions appropriately Abdomen soft, nontender without guarding or rebound. I have greeted and performed a rapid initial assessment of this patient. A comprehensive ED assessment and evaluation of the patient, analysis of test results and completion of the medical decision making process will be conducted by additional ED providers. I have specifically instructed the patient or family members with the patient to immediately return to any nursing staff should anything change in the patient's condition or with their chief complaint. This medical record was dictated with voice recognizing software. There may be grammatical, syntax errors that are unintended. TRAVEL OUTSIDE OF THE [place] IN LAST 30 DAYS: No - Related Data Allergies/Adverse Reactions: Iodinated Contrast Media Allergy (Intermediate, Verified 12/02/18 14:44) Pruritis morphine Allergy (Intermediate, Verified 12/02/18 14:44) Pruritis oxycodone Allergy (Intermediate, Verified 12/02/18 14:44) Pruritis Penicillins Allergy (Intermediate, Verified 12/02/18 14:44) Difficulty breathing fentanyl [From Duragesic] Allergy (Unknown, Verified 12/02/18 14:44) hydromorphone HCl [From Dilaudid] Allergy (Unknown, Verified 12/02/18 14:44) meloxicam [From Mobic] Allergy (Verified 12/02/18 14:44) Sulfa (Sulfonamide Antibiotics) Allergy (Verified 12/02/18 14:44) Past Medical History - Past Medical History Cardiac Medical History: Reports: Hx Congestive Heart Failure, Hx Hypercholesterolemia, Hx Hypertension Neurological Medical History: Reports: Hx Migraine Endocrine Medical History: Reports: Hx Diabetes Mellitus Type 2 Renal/ Medical History: Denies: Hx Peritoneal Dialysis Psychiatric Medical History: Reports: Hx Depression Past Surgical History: Reports: Hx Hysterectomy, Hx Orthopedic Surgery - left knee replacement; bilateral rotator cuff, Hx Thyroid Surgery - Immunizations Hx Diphtheria, Pertussis, Tetanus Vaccination: Yes Physical Exam - Vital signs Vitals: Temp Pulse Resp BP Pulse Ox 98.9 F 72 20 125/74 97 12/02/18 14:48 12/02/18 14:48 12/02/18 14:48 12/02/18 14:48 12/02/18 14:48 Course - Vital Signs Vital signs: Temp Pulse Resp BP Pulse Ox 98.9 F 72 20 125/74 97 12/02/18 14:48 12/02/18 14:48 12/02/18 14:48 12/02/18 14:48 12/02/18 14:48 Doctor's Discharge - Discharge Referrals: MARY ELLEN RENEE PA-C [Primary Care Provider] - Follow up as needed
[2018-12-02 16:41] LABS: HEMATOCRIT 28.9 % (36.0-47.0); HEMOGLOBIN 10.1 g/dL (12.0-15.5); MEAN CORPUSCULAR HEMOGLOBIN 32.3 pg (27.0-33.4); MEAN CORPUSCULAR HGB CONC 34.8 g/dL (32.0-36.0); MEAN CORPUSCULAR VOLUME 93 fl (80-97); PLATELET COUNT 201 10^3/uL (150-450); RED BLOOD COUNT 3.11 10^6/uL (3.72-5.28); RED CELL DISTRIBUTION WIDTH 13.1 % (11.5-14.0); WHITE BLOOD COUNT 6.1 10^3/uL (4.0-10.5)
[2018-12-02 16:53] LABS: ALBUMIN 4.6 g/dL (3.5-5.0); ALKALINE PHOSPHATASE 53 U/L (38-126); ANION GAP 12 (5-19); ASPARTATE AMINO TRANSFERASE 30 U/L (14-36); BILIRUBIN,DIRECT 0.2 mg/dL (0.0-0.4); BILIRUBIN,TOTAL 0.5 mg/dL (0.2-1.3); BLOOD UREA NITROGEN 18 mg/dL (7-20); CALCIUM 9.3 mg/dL (8.4-10.2); CARBON DIOXIDE 21 mmol/L (22-30); CHLORIDE 99 mmol/L (98-107); GLUCOSE 106 mg/dL (75-110); POTASSIUM 5.6 mmol/L (3.6-5.0); TOTAL PROTEIN 7.6 g/dL (6.3-8.2)
[2018-12-02 17:02] LABS: ABSOLUTE LYMPHOCYTES# (MANUAL) 0.2 10^3/uL (0.5-4.7); ABSOLUTE MONOCYTES # (MANUAL) 0.3 10^3/uL (0.1-1.4); BAND NEUTROPHILS % (MANUAL) 1 % (3-5); BASOPHILS % (MANUAL) 0 % (0-2); EOSINOPHILS % (MANUAL) 0 % (0-6); LYMPHOCYTES % (MANUAL) 4 % (13-45); MONOCYTES % (MANUAL) 5 % (3-13); SEGMENTED NEUTROPHILS % (MAN) 90 % (42-78); TOTAL CELLS COUNTED 100
[2018-12-02 17:03] LABS: PLATELET COMMENT ADEQUATE; RBC MORPHOLOGY COMMENT NORMO-CYTIC/CHROMIC
--- NOTE | 2018-12-02 18:13 | EKG REPORT ---
SEVERITY:- NORMAL ECG - SINUS RHYTHM : Confirmed by: Flako Phillips MD 02-Dec-2018 18:13:05
[2018-12-02] MEDS ORDERED: ONDANSETRON HCL INJ/PF 4 MG/2 ML SDV IV ONE (18:21)
[2018-12-02] MEDS ORDERED: ACETAMINOPHEN 325 MG TABLET PO ONE (18:21)
[2018-12-02] MEDS ORDERED: NORMAL SALINE 500 ML IV ONE (18:21)
--- NOTE | 2018-12-02 18:33 | ER Document Report ---
ED Fall - General Chief Complaint: Fall Stated Complaint: FALL-RIB/ARM/SHOULDER PAIN Time Seen by Provider: 12/02/18 15:23 Primary Care Provider: LIANG AMBROCIO PA-C [Primary Care Provider] - 12/04/18 MARY ELLEN RENEE PA-C [ALLIED HEALTH PROFESSIONAL] - Follow up as needed Mode of Arrival: Wheelchair Information source: Patient, Relative - Daughter x2 Notes: 68-year-old female presented to ED for complaint of nausea vomiting and diarrhea. She states while she was on the toilet having a bowel movement she had a syncopal episode that lasted a few seconds. She complained of pain to her left ribs left shoulder and low back. These areas were painful to palpation at the time of the exam. Patient is alert oriented respirations regular and unlabored. She states that she did not hit her head. She was able to answer all questions appropriately. She states she had kidney failure in August of this year and after dialysis x2 she regained 60% of her kidney function. She states she does urinate but sometimes it is a little hard. Patient is alert and oriented respirations regular and unlabored speaking in full sentences answering all questions appropriately TRAVEL OUTSIDE OF THE [place] IN LAST 30 DAYS: No - HPI Occurred: This morning Where: Home, Indoors Context: Fell from sitting - States she had a vasovagal syncopal episode while on the bathroom Associated symptoms: Lost consciousness Location of injury/pain: Back - Low back, Chest - Left ribs, Shoulder - Left shoulder Quality of pain: Achy, Sharp Severity: Moderate Pain Level: 3 - Related data Allergies/Adverse Reactions: Iodinated Contrast Media Allergy (Intermediate, Verified 12/02/18 14:44) Pruritis morphine Allergy (Intermediate, Verified 12/02/18 14:44) Pruritis oxycodone Allergy (Intermediate, Verified 12/02/18 14:44) Pruritis Penicillins Allergy (Intermediate, Verified 12/02/18 14:44) Difficulty breathing fentanyl [From Duragesic] Allergy (Unknown, Verified 12/02/18 14:44) hydromorphone HCl [From Dilaudid] Allergy (Unknown, Verified 12/02/18 14:44) meloxicam [From Mobic] Allergy (Verified 12/02/18 14:44) Sulfa (Sulfonamide Antibiotics) Allergy (Verified 12/02/18 14:44) Past Medical History - General Information source: Patient, Relative - Daughter x2 - Social History Smoking Status: Never Smoker Chew tobacco use (# tins/day): No Frequency of alcohol use: None Drug Abuse: None Lives with: Family Family History: Reviewed & Not Pertinent Patient has suicidal ideation: No Patient has homicidal ideation: No - Past Medical History Cardiac Medical History: Reports: Hx Hypercholesterolemia, Hx Hypertension Pulmonary Medical History: Reports: None EENT Medical History: Reports: None Neurological Medical History: Reports: Hx Migraine Endocrine Medical History: Reports: Hx Diabetes Mellitus Type 2, Hx Hypothyroidism - Thyroidectomy due to thyroid cancer Renal/ Medical History: Reports: Hx Renal Insufficiency, Other - Acute kidney failure August 2018 states now has 60% function Malignancy Medical History: Reports: Other - Thyroid cancer GI Medical History: Reports: None Musculoskeletal Medical History: Reports Hx Arthritis, Reports Hx Musculoskeletal Deformity, Reports Hx Musculoskeletal Trauma Skin Medical History: Reports None Psychiatric Medical History: Reports: Hx Depression Traumatic Medical History: Reports: Hx Fractures Infectious Medical History: Reports: None Past Surgical History: Reports: Hx Genitourinary Surgery - Bladder tack x4, Hx Hysterectomy, Hx Myringotomy - Patched eardrum, Hx Orthopedic Surgery - left knee replacement; bilateral rotator cuff, knee arthroscopic, neck surg, Hx Thyroid Surgery, Other - Nerve stimulator inserted and removed shoulder, nerves burned shoulder knee - Immunizations Hx Diphtheria, Pertussis, Tetanus Vaccination: Yes Hx Pneumococcal Vaccination: 03/19/99 Review of Systems - Review of Systems Constitutional: No symptoms reported EENT: No symptoms reported Cardiovascular: No symptoms reported Respiratory: No symptoms reported Gastrointestinal: No symptoms reported Genitourinary: No symptoms reported Female Genitourinary: No symptoms reported Musculoskeletal: Back pain, Joint pain - Left shoulder, Muscle pain, Muscle stiffness, Other - Left ribs Skin: No symptoms reported Hematologic/Lymphatic: No symptoms reported Neurological/Psychological: No symptoms reported Physical Exam - Vital signs Vitals: Temp Pulse Resp BP Pulse Ox 98.9 F 72 20 125/74 97 12/02/18 14:48 12/02/18 14:48 12/02/18 14:48 12/02/18 14:48 12/02/18 14:48 Interpretation: Normal - General General appearance: Appears well, Alert - HEENT Head: Normocephalic, Atraumatic Eyes: Normal Pupils: PERRL - Respiratory Respiratory status: No respiratory distress Chest status: Tender, Pain on movement, Pain with cough, Pain with deep breathing, Other Breath sounds: Normal Chest palpation: Normal - Cardiovascular Rhythm: Regular Heart sounds: Normal auscultation Murmur: No - Abdominal Inspection: Normal Distension: No distension Bowel sounds: Normal Tenderness: Nontender Organomegaly: No organomegaly - Back Back: Normal, Tender. No: Deformity/step-off, CVA tenderness, Scars, Scoliosis, Wounds - Extremities General upper extremity: Normal temperature General lower extremity: Normal inspection, Nontender, Normal color, Normal ROM, Normal temperature, Normal weight bearing. No: Luis A's sign Shoulder: Tender, Ecchymosis, Limited ROM. No: Abrasion, Deformity, Dislocation, Instability, Laceration Arm: Tender - Neurological Neuro grossly intact: Yes Cognition: Normal Orientation: AAOx4 [place] Coma Scale Eye Opening: Spontaneous [place] Coma Scale Verbal: Oriented [place] Coma Scale Motor: Obeys Commands [place] Coma Scale Total: 15 Speech: Normal Motor strength normal: LUE, RUE, LLE, RLE Sensory: Normal - Psychological Associated symptoms: Normal affect, Normal mood - Skin Skin Temperature: Warm Skin Moisture: Dry Skin Color: Normal Course - Re-evaluation Re-evalutation: 12/03/18 03:46 Labs and all radiological testing were discussed with patient and family. Written report of testing given to patient to follow-up with her primary care doctor. Patient and family verbalized they would be sure that she followed up in the next 24 to 48 hours. Patient was also treated with incentive spirometry which she took her home with her to use. She states she is used in the past. - Vital Signs Vital signs: Temp Pulse Resp BP Pulse Ox 98.7 F 63 16 109/50 L 97 12/02/18 21:22 12/02/18 21:22 12/02/18 21:22 12/02/18 21:22 12/02/18 21:22 - Laboratory Result Diagrams: 12/02/18 16:15 12/02/18 16:15 Laboratory results interpreted by me: 12/02/18 12/02/18 12/02/18 16:15 16:15 20:42 RBC 3.11 L Hgb 10.1 L Hct 28.9 L Seg Neuts % (Manual) 90 H Band Neutrophils % 1 L Lymphocytes % (Manual) 4 L Abs Lymphs (Manual) 0.2 L Sodium 131.9 L Potassium 5.6 H Carbon Dioxide 21 L Est GFR (MDRD) Non-Af 54 L Ur Leukocyte Esterase TRACE H Urine Ascorbic Acid 40 H - Diagnostic Test Radiology reviewed: Image reviewed, Reports reviewed Discharge - Discharge Clinical Impression: Contusion of left shoulder, initial encounter Fall Qualifiers: Encounter type: initial encounter Qualified Code(s): W19.XXXA - Unspecified fall, initial encounter Syncopal episodes Qualifiers: Syncope type: vasovagal syncope Qualified Code(s): R55 - Syncope and collapse Contusion of rib on left side Qualifiers: Encounter type: initial encounter Qualified Code(s): S20.212A - Contusion of left front wall of thorax, initial encounter Low back pain Qualifiers: Chronicity: chronic Back pain laterality: unspecified Sciatica presence: without sciatica Qualified Code(s): M54.5 - Low back pain Condition: Stable Disposition: HOME, SELF-CARE Additional Instructions: CONTUSION: Your injury has resulted in a contusion -- a crushing of the deep tissues. No injury to important structures was detected during the physician's exam. Contusions vary in the amount of pain they cause, and in the length of time required for healing. Typically, the area will become bruised, and will remain painful to touch for two or three weeks. However, most patients are back to working and playing within a few days. After the initial period of rest and cold-packs, your symptoms (together with the doctor's recommendations) will determine how rapidly you can get back to full activity. Usually this means "do what feels okay, but don't do things that hurt." If re-examination was recommended, it's important to follow up as instructed. Call the doctor or return any time if pain increases, if swelling becomes severe, if you develop numbness or weakness in an injured extremity, or if any other alarming symptoms occur. LOW BACK PAIN: Three out of every four people will have an episode of disabling back pain during their lifetime. Most commonly the pain is due to straining of the muscles and ligaments in the low back. Usual treatment includes: (1) Rest on a firm surface. Avoid lying on your stomach. (2) Ice pack the painful area. After a few days, gentle heat may be used interm ittently to relax the area, or ice packs can be continued. (3) Medication may be needed -- muscle relaxers and antiinflammatory medicines are commonly used. (4) As the back improves, exercises are prescribed to strengthen the back and abdominal muscles. Your doctor will advise you on the proper care for your back at each stage in your recovery. You may be better in a few days -- or healing may take several weeks. If new symptoms of a "herniated disc" (radiation of pain, numbness, or tingling down the back of the leg or weakness in the leg) occur, you should be re-examined. Further testing may be necessary. Rib Contusion You have been diagnosed as having bruised ribs. It will usually take a few weeks for these injured ribs to heal. You should cough or take a deep breath at least every hour or two to prevent lung complications. You should not engage in any strenuous physical activity until released by your physician. The usual rule is "if it hurts, don't do it." Return if you develop any of the following: (1) Fever or chills. (2) Persistent cough, coughing up blood, or shortness of breath. (3) Increasing pain. (4) Weakness, lightheadedness, or fainting. USE OF TYLENOL (ACETAMINOPHEN): Acetaminophen may be taken for pain relief or fever control. It's much safer than aspirin, offering a wider range of "safe" dosages. It is safe during . Some brand names are Tylenol, Panadol, Datril, Anacin 3, Tempra, and Liquiprin. Acetaminophen can be repeated every four hours. The following are maximum recommended dosages: WEIGHT Dose Drops Elixir Chewable(80mg) (LBS.) drprs=droppers tsp=teaspoon 6 40 mg 0.4 ml (1/2) 6-11 80 mg 0.8 ml (full) tsp 1 tab 12-16 120 mg 1 1/2 drprs 3/4 tsp 1 1/2 tabs 17-23 160 mg 2 drprs 1 tsp 2 tabs 24-30 240 mg 3 drprs 1 1/2 tsp 3 tabs 30-35 320 mg 2 tsp 4 tabs 36-41 360 mg 2 1/4 tsp 4 1/2 tabs 42-47 400 mg 2 1/2 tsp 5 tabs 48-53 480 mg 3 tsp 6 tabs 54-59 520 mg 3 1/4 tsp 6 1/2 tabs 60-64 560 mg 3 1/2 tsp 7 tabs 65-70 600 mg 3 3/4 tsp 7 1/2 tabs 71-76 640 mg 4 tsp 8 tabs 77-82 720 mg 4 1/2 tsp 9 tabs 83-88 800 mg 5 tsp 10 tabs >89 pounds or adults 650 mg to 900 mg Acetaminophen can be repeated every four hours. Maximum dose not to exceed 4000 mg a day. These maximum recommended dosages are slightly higher than the dosages written on the product container, but these dosages are very safe and below the toxic dosage for acetaminophen. ICE PACKS: Apply ice packs frequently against the painful area. Many different schedules are recommended, such as "20 minutes on, 20 minutes off" or "one hour ice, two hours rest." If you need to work, you may need to go longer between ice treatments. You should plan to have the area ice packed AT LEAST one fourth of the time. The ice should be applied over the wrap, tape, or splint, or over a layer of cloth -- not directly against the skin. Some ice bags have a built-in cloth and can be put directly on the skin. WARM PACKS: After approximately two days, apply gentle heat (such as a heating pad or hot water bottle) for about 20 to 30 minutes about every two hours -- at least four times daily. Warmth and elevation will help you make a more rapid recovery, and will ease the pain considerably. Do not use HOT heat, and never apply heat for longer than 30 minutes. The continuous heat can invisibly damage skin and muscles -- even when no burn is seen on the surface. Damaged muscles can make you MORE sore. FOLLOW-UP CARE: If you have been referred to a physician for follow-up care, call the [facility] office for an appointment as you were instructed or within the next two days. If you experience worsening or a significant change in your symptoms, notify the physician immediately or return to the Emergency Department at any time for re-evaluation. Forms: Elevated Blood Pressure Referrals: MARY ELLEN RENEE PA-C [ALLIED HEALTH PROFESSIONAL] - Follow up as needed LIANG AMBROCIO PA-C [Primary Care Provider] - 12/04/18
--- NOTE | 2018-12-02 19:36 | RADIOLOGY REPORT (SQ) ---
EXAM DESCRIPTION: L SPINE WHOLE COMPLETED DATE/TIME: 12/02/2018 7:10 pm REASON FOR STUDY: fall pain and injury COMPARISON: None. NUMBER OF VIEWS: Five views including obliques. TECHNIQUE: AP, lateral, oblique, and sacral radiographic images acquired of the lumbar spine. LIMITATIONS: None. FINDINGS: MINERALIZATION: Normal. SEGMENTATION: Normal. No transitional anatomy. ALIGNMENT: Mild levoscoliosis at the thoracolumbar junction. VERTEBRAE: Maintained height. No fracture or worrisome bone lesion. DISCS: All the disc spaces are narrowed to some degree. Marginal osteophytes are most prominent at L 2-3 and at L1-2. POSTERIOR ELEMENTS: Pedicles and facets are intact. No pars defect or posterior arch defects. L4 la minectomy. HARDWARE: Posterior hardware from L3-L5. PARASPINAL SOFT TISSUES: Normal. PELVIS: Intact as visualized. No fractures or worrisome bone lesions. SI joints intact. OTHER: No other significant finding. IMPRESSION: Surgical changes. Mild scoliosis. Degenerative disc disease and spondylosis. TECHNICAL DOCUMENTATION: JOB ID: [id number] [employer]- All Rights Reserved Reading location - IP/workstation name: [email or web address]
--- NOTE | 2018-12-02 19:37 | RADIOLOGY REPORT (SQ) ---
EXAM DESCRIPTION: RIBS LEFT W/PA CHEST COMPLETED DATE/TIME: 12/02/2018 7:10 pm REASON FOR STUDY: fall pian and injury COMPARISON: None. TECHNIQUE: Frontal view of the chest and additional views of the left ribs acquired. NUMBER OF VIEWS: Three view. LIMITATIONS: None. FINDINGS: FRONTAL CXR: No pneumothorax. No pleural effusion. No atelectasis or infiltrates. RIBS: No displaced rib fractures. No lytic or blastic bony lesions. OTHER: No other significant finding. IMPRESSION: NO PNEUMOTHORAX. NO DISPLACED RIB FRACTURES. COMMENT: SITE OF TRAUMA/COMPLAINT MARKED/STAMP COMPLETED: No TECHNICAL DOCUMENTATION: JOB ID: [id number] [employer]- All Rights Reserved Reading location - IP/workstation name: [email or web address]
--- NOTE | 2018-12-02 19:38 | RADIOLOGY REPORT (SQ) ---
EXAM DESCRIPTION: SHOULDER LEFT 2 OR MORE VIEWS COMPLETED DATE/TIME: 12/02/2018 7:10 pm REASON FOR STUDY: fall pian and injury COMPARISON: 08/10/2014 NUMBER OF VIEWS: Three views. TECHNIQUE: Internal rotation, external rotation, and Y view images acquired of the left shoulder. LIMITATIONS: None. FINDINGS: MINERALIZATION: Normal. BONES: No acute fracture. No worrisome bone lesions. JOINTS: There appear to be glenohumeral degenerative joint changes. Subchondral cysts are present in the humeral head. VISUALIZED LUNGS AND RIBS: No pneumothorax. No rib fracture. SOFT TISSUES: No radiopaque foreign body. OTHER: No other significant finding. IMPRESSION: Glenohumeral degenerative joint changes. No acute fracture or dislocation. TECHNICAL DOCUMENTATION: JOB ID: [id number] [employer]- All Rights Reserved Reading location - IP/workstation name: [email or web address]
[2018-12-02 21:07] LABS: APPEARANCE,URINE CLEAR; BILIRUBIN,URINE NEGATIVE (NEGATIVE); COLOR,URINE STRAW; GLUCOSE, URINE NEGATIVE (NEGATIVE); KETONES,URINE NEGATIVE (NEGATIVE); PROTEIN,URINE NEGATIVE (NEGATIVE); URINE SPECIFIC GRAVITY 1.014
[2018-12-02 21:08] LABS: LEUKOCYTE ESTERASE,URINE TRACE (NEGATIVE); NITRITE,URINE NEGATIVE (NEGATIVE); UROBILINOGEN,URINE NEGATIVE mg/dL (<2.0)
[2018-12-02 21:25] VITALS: BP 109/50
== END 2018-12-02 21:42 | disposition home or self-care (01) ==
LOC: ER 14:42
DX: S40.012A Contusion of left shoulder, initial encounter (principal); S20.212A Contusion of left front wall of thorax, initial encounter; R55 Syncope and collapse; R11.2 Nausea with vomiting, unspecified; R19.7 Diarrhea, unspecified; M54.5 Low back pain; W18.11XA Fall from or off toilet without subsequent striking against object, initial encounter; Y92.002 Bathroom of unspecified non-institutional (private) residence as the place of occurrence of the external cause; E78.00 Pure hypercholesterolemia, unspecified; I10 Essential (primary) hypertension; E11.9 Type 2 diabetes mellitus without complications; Z88.6 Allergy status to analgesic agent; Z88.0 Allergy status to penicillin; Z88.2 Allergy status to sulfonamides
CPT/HCPCS: 93005; 36415; 85025; 80053; 81001; 84484; 72110; 71101; 73030; 93010; A9270; J2405; J7040; 96361; 96374; 99284

== ENCOUNTER → 2018-12-09 | Outpatient (CLI) | payer MEDICARE, BC ==
[2018-12-09 10:49] LABS: ABSOLUTE EOSINOPHILS # (AUTO) 0.1 10^3/uL (0.0-0.6); ABSOLUTE LYMPHOCYTES (AUTO) 1.8 10^3/uL (0.5-4.7); ABSOLUTE MONOCYTES (AUTO) 0.5 10^3/uL (0.1-1.4); ABSOLUTE NEUT (AUTO) 3.4 10^3/uL (1.7-8.2); BASOPHILS % (AUTO) 0.5 % (0-2); EOSINOPHILS % (AUTO) 2.3 % (0-6); HEMATOCRIT 25.6 % (36.0-47.0); LYMPHOCYTES % (AUTO) 30.8 % (13-45); MEAN CORPUSCULAR HGB CONC 35.1 g/dL (32.0-36.0); MEAN CORPUSCULAR VOLUME 94 fl (80-97); MONOCYTES % (AUTO) 8.8 % (3-13); PLATELET COUNT 221 10^3/uL (150-450); RED BLOOD COUNT 2.72 10^6/uL (3.72-5.28); SEGMENTED NEUTROPHILS % (AUTO) 57.6 % (42-78); TOTAL CELLS COUNTED % (AUTO) 100 %; WHITE BLOOD COUNT 5.8 10^3/uL (4.0-10.5)
[2018-12-09 11:06] LABS: APPEARANCE,URINE SLIGHTLY-CLOUDY; BILIRUBIN,URINE NEGATIVE (NEGATIVE); COLOR,URINE YELLOW; GLUCOSE, URINE NEGATIVE (NEGATIVE); KETONES,URINE NEGATIVE (NEGATIVE); LEUKOCYTE ESTERASE,URINE LARGE (NEGATIVE); NITRITE,URINE POSITIVE (NEGATIVE); PROTEIN,URINE NEGATIVE (NEGATIVE); URINE SPECIFIC GRAVITY 1.014; UROBILINOGEN,URINE NEGATIVE mg/dL (<2.0)
[2018-12-09 11:13] LABS: ALBUMIN 4.3 g/dL (3.5-5.0); ALKALINE PHOSPHATASE 59 U/L (38-126); ANION GAP 10 (5-19); ASPARTATE AMINO TRANSFERASE 27 U/L (14-36); BILIRUBIN,DIRECT 0.1 mg/dL (0.0-0.4); BILIRUBIN,TOTAL 0.4 mg/dL (0.2-1.3); BLOOD UREA NITROGEN 16 mg/dL (7-20); CALCIUM 9.2 mg/dL (8.4-10.2); CARBON DIOXIDE 26 mmol/L (22-30); CHLORIDE 102 mmol/L (98-107); GLUCOSE 142 mg/dL (75-110); POTASSIUM 4.6 mmol/L (3.6-5.0); TOTAL PROTEIN 7.3 g/dL (6.3-8.2)
[2018-12-10 15:15] LABS: IRON(TIBC) 69.6 ug/dL (37-170)
== END ==
LOC: OD 10:03
PROVIDERS: ATTEND Internal Medicine Nephrology
DX: N18.4 Chronic kidney disease, stage 4 (severe) (principal); E87.1 Hypo-osmolality and hyponatremia
CPT/HCPCS: 36415; 80053; 81001; 82728; 83540; 83550; 85025

== ENCOUNTER → 2019-08-20 | Outpatient (CLI) | payer MEDICARE, BC ==
--- NOTE | 2019-08-20 10:24 | RADIOLOGY REPORT (SQ) ---
EXAM DESCRIPTION: KUB/ABDOMEN (SINGLE VIEW) IMAGES COMPLETED DATE/TIME: 08/20/2019 9:32 am REASON FOR STUDY: GENRALIZED ABDOMINAL PAIN R10.84 GENERALIZED ABDOMINAL PAIN COMPARISON: 09/11/2018 NUMBER OF VIEWS: One view. TECHNIQUE: Supine radiographic image of the abdomen acquired. LIMITATIONS: None. FINDINGS: BOWEL GAS PATTERN: Normal bowel gas pattern. No dilated loops. CALCIFICATIONS: No suspicious calcifications. SOFT TISSUES: No gross mass or suggestion of organomegaly. HARDWARE: Lower lumbar fusion. BONES: No acute fracture. No worrisome bone lesions. OTHER: No other significant finding. IMPRESSION: NO RADIOGRAPHIC EVIDENCE FOR ACUTE ABDOMINAL DISEASE. TECHNICAL DOCUMENTATION: JOB ID: [id number] 2010 [employer]- All Rights Reserved Reading location - IP/workstation name: [email or web address]
== END ==
LOC: RAD 08:59
PROVIDERS: ATTEND Physician Assistant
DX: R10.84 Generalized abdominal pain (principal)
CPT/HCPCS: 74018

== ENCOUNTER → 2019-12-08 | Outpatient (CLI) | payer MEDICARE, BC ==
[2019-12-08 10:36] LABS: HEMATOCRIT 35.4 % (36.0-47.0); HEMOGLOBIN 12.3 g/dL (12.0-15.5); MEAN CORPUSCULAR HEMOGLOBIN 32.2 pg (27.0-33.4); MEAN CORPUSCULAR HGB CONC 34.6 g/dL (32.0-36.0); MEAN CORPUSCULAR VOLUME 93 fl (80-97); PLATELET COUNT 236 10^3/uL (150-450); RED BLOOD COUNT 3.81 10^6/uL (3.72-5.28); RED CELL DISTRIBUTION WIDTH 12.9 % (11.5-14.0); WHITE BLOOD COUNT 4.5 10^3/uL (4.0-10.5)
[2019-12-08 10:59] LABS: ALBUMIN 4.6 g/dL (3.5-5.0); ANION GAP 11 (5-19); BLOOD UREA NITROGEN 20 mg/dL (7-20); CALCIUM 9.3 mg/dL (8.4-10.2); CARBON DIOXIDE 25 mmol/L (22-30); CHLORIDE 99 mmol/L (98-107); GLUCOSE 143 mg/dL (75-110); PHOSPHORUS 4.2 mg/dL (2.5-4.5); POTASSIUM 4.4 mmol/L (3.6-5.0)
[2019-12-08 11:09] LABS: APPEARANCE,URINE SLIGHTLY-CLOUDY; BILIRUBIN,URINE NEGATIVE (NEGATIVE); COLOR,URINE YELLOW; GLUCOSE, URINE NEGATIVE (NEGATIVE); KETONES,URINE NEGATIVE (NEGATIVE); LEUKOCYTE ESTERASE,URINE LARGE (NEGATIVE); NITRITE,URINE POSITIVE (NEGATIVE); PROTEIN,URINE NEGATIVE (NEGATIVE); URINE SPECIFIC GRAVITY 1.015; UROBILINOGEN,URINE NEGATIVE mg/dL (<2.0)
[2019-12-08 11:27] LABS: ADD MANUAL MICROSCOPIC YES
[2019-12-08 11:28] LABS: BACTERIA,URINE 2+ /HPF; WBC,URINE 30-50 /HPF
== END ==
LOC: OD 09:35
PROVIDERS: ATTEND Internal Medicine Nephrology
DX: N17.9 Acute kidney failure, unspecified (principal)
CPT/HCPCS: 36415; 80069; 81001; 83735; 85027